=== PATIENT | female | born 1940 | race Caucasian/White ===

== ENCOUNTER 2018-11-28 07:41 | Outpatient (CLI) | payer MEDICARE, OTHER ==
[~2018-11-28 07:41] MED LIST: CYCLOPHOSPHAMIDE IV PRN; DEXAMETHASONE SOD PHOSPHATE 10 MG in NORMAL SALINE 50 ML IV PRN; MESNA IV PRN; NORMAL SALINE 1000 ML 1,000 ML IV PRN; NORMAL SALINE 500 ML IV PRN; NORMAL SALINE IV PRN; ONDANSETRON HCL/PF 8 MG in NORMAL SALINE 50 ML IV PRN; ONDANSETRON HCL/PF 8 MG, DEXAMETHASONE SOD PHOSPHATE 10 MG in NORMAL SALINE 50 ML IV PRN
[2018-11-28 08:08] VITALS: BP 177/67
== END 2018-11-28 16:55 | disposition home or self-care (01) ==
LOC: II 07:41 → 5TH 07:48 → II 16:55
PROVIDERS: ATTEND Internal Medicine Nephrology
DX: Z51.11 Encounter for antineoplastic chemotherapy (principal)
CPT/HCPCS: 96413; 96415; 96367; 96360; 96361; J9070; J9209; J2405; J1100

== ENCOUNTER 2018-12-24 15:54 | Outpatient (CLI) | payer MEDICARE ==
[~2018-12-24 15:54] MED LIST changes: +ACETAMINOPHEN 325 MG TABLET PO PRN; -CYCLOPHOSPHAMIDE IV PRN; -DEXAMETHASONE SOD PHOSPHATE 10 MG in NORMAL SALINE 50 ML IV PRN; +FUROSEMIDE INJ/PF 20 MG/2 ML SDV IV PRN; -MESNA IV PRN; -NORMAL SALINE 1000 ML 1,000 ML IV PRN; -NORMAL SALINE 500 ML IV PRN; -NORMAL SALINE IV PRN; -ONDANSETRON HCL/PF 8 MG in NORMAL SALINE 50 ML IV PRN; -ONDANSETRON HCL/PF 8 MG, DEXAMETHASONE SOD PHOSPHATE 10 MG in NORMAL SALINE 50 ML IV PRN
[2018-12-24] MEDS ORDERED: DIPHENHYDRAMINE HCL 50 MG/ML VIAL IV PRN (16:30)
[2018-12-24 17:04] LABS: HEMATOCRIT 20.8 % (36.0-47.0); MEAN CORPUSCULAR HEMOGLOBIN 31.2 pg (27.0-33.4); MEAN CORPUSCULAR VOLUME 89 fl (80-97); RED BLOOD COUNT 2.34 10^6/uL (3.72-5.28); RED CELL DISTRIBUTION WIDTH 15.1 % (11.5-14.0); WHITE BLOOD COUNT 6.2 10^3/uL (4.0-10.5)
[2018-12-24 17:28] LABS: HEMOGLOBIN 7.3 g/dL (12.0-15.5)
[2018-12-24 17:30] LABS: PLATELET COUNT 71 10^3/uL (150-450)
[2018-12-25 03:47] VITALS: BP 171/80
== END 2018-12-25 04:07 | disposition home or self-care (01) ==
LOC: II 15:54 → 2N 16:05 → II 12-25 04:07
PROVIDERS: ATTEND Internal Medicine Nephrology
DX: D64.9 Anemia, unspecified (principal)
CPT/HCPCS: 86900; 86901; 36415; 36430; 86850; 86920; P9016; A9270; J1200; J1940

== ENCOUNTER 2018-12-29 11:29 | Observation (INO) | payer MEDICARE ==
--- NOTE | 2018-12-29 11:55 | ER Document Report ---
ED General - General Stated Complaint: SYNCOPE Time Seen by Provider: 12/29/18 11:35 Primary Care Provider: Evelyn MIRZA MD [Primary Care Provider] - Follow up as needed TRAVEL OUTSIDE OF THE [place] IN LAST 30 DAYS: No - HPI Notes: Patient is a 78-year-old female with a history of hypertension, chronic kidney disease, anemia requiring transfusions (most recently x1 week) who presents complaining of near syncopal episode that resulted in head injury this morning. Patient states that she was standing at her stove try to make herself some food after she had taken her medicines and started to become lightheaded. Patient states that she went to the bathroom, and sat down, but did "have a mess." Patient states that she then started blacking out and hit her head off of the tub/shower next to her. Patient states that she did not have a complete syncopal episode and does remember everything that happened in the order that it occurred. Patient states that she needed help from her friend thereafter to get cleaned up. Patient states that she is able to shower and has been able to ambulate since then without difficulty, but does continue to have some generalized weakness. No other recent illness. Friend states that she has had 2 other episodes similar to this over the past several weeks. She has no other concerns or complaints. No black or tarry stool. No hematochezia. Denies any headache, fever, neck pain, changes in vision/speech/mentation/hearing, URI, sore throat, chest pain, palpitations, syncope, cough, shortness of breath, wheeze, dyspnea, abdominal pain, nausea/vomiting/diarrhea, urinary retention, dysuria, hematuria, loss of control of bowel or bladder, numbness/tingling, saddle anesthesia, muscle paralysis, or rash. - Related Data Allergies/Adverse Reactions: codeine Allergy (Unknown, Unverified 11/27/18 09:01) Sulfa (Sulfonamide Antibiotics) Allergy (Unknown, Unverified 11/27/18 09:01) Past Medical History - Social History Smoking Status: Never Smoker Family History: Reviewed & Not Pertinent Review of Systems - Review of Systems -: Yes All other systems reviewed and negative Physical Exam - Vital signs Vitals: Temp Pulse BP Pulse Ox 97.5 F 65 183/69 H 100 12/29/18 11:42 12/29/18 11:42 12/29/18 11:42 12/29/18 11:42 - Notes Notes: PHYSICAL EXAMINATION: accompanied by female nurse GENERAL: Well-appearing, well-nourished and in no acute distress. A&Ox4. Answers questions appropriately. HEAD: Atraumatic, normocephalic. Non-tender. No mendoza sign Face: + swelling and ecchymosis to the inferior rt orbital/zygomatic area. + mild tenderness. EYES: Pupils equal round and reactive to light, extraocular movements intact, sclera anicteric, conjunctiva are normal. No raccoon eyes/entrapment ENT: EAC clear b/l. TM's intact b/l without erythema, fluid, or perforation. Nares patent and without discharge. oropharynx clear without exudates. No tonsilar hypertrophy or erythema. Moist mucous membranes. No sinus tenderness. No hemotympanum/CSF discharge. NECK: Normal range of motion, supple without lymphadenopathy. No rigidity. No midline tenderness. Chest: No flail chest. equal rise/fall. Non-tender LUNGS: Breath sounds clear to auscultation bilaterally and equal. No wheezes rales or rhonchi. HEART: Regular rate and rhythm without murmurs, rubs, gallops. ABDOMEN: Soft, nontender, nondistended abdomen. No guarding, no rebound. No masses appreciated. Normal bowel sounds present. No CVA tenderness bilaterally. No ecchymosis Musculoskeletal: Ext's b/l: FROM to passive/active. Strength 5+/5. No deficits noted. No bony tenderness of extremities. Back: FROM to passive/active. Strength 5+/5. No vertebral point tenderness, stepoffs, or deformities. No other bony tenderness or ecchymosis. Extremities: No cyanosis, clubbing, or edema b/l. Peripheral pulses 2+. Cap illary refill less than 2 seconds. NEUROLOGICAL: NIH 0. GCS 15. Cranial nerves grossly intact. Normal speech. Normal sensory, motor exams. Reflexes 2+ b/l. YANE's negative. Pronator drift negative. Heel/mcclain, finger/nose wnl. PSYCH: Normal mood, normal affect. SKIN: see above. Warm, Dry, normal turgor, no rashes or lesions noted. Course - Re-evaluation Re-evalutation: 12/29/18 14:57 Patient is an afebrile, well-hydrated, 78-year-old female who presents emergency department with a syncopal episode, unspecified. Vitals are acceptable without significant tachycardia, tachypnea, or hypoxia. PE is otherwise unremarkable for any focal neurological deficits. Patient is nontoxic-appearing and is able to tolerate p.o. without difficulty. Patient states that she is currently feeling better than she was. Labs were acceptable. Imaging unremarkable. EKG unremarkable. No further labs or imaging warranted at this time. Patient agreeable to admission. I did speak with hospitalist, JOSEPH Peters, who accepted pt to tele. - Vital Signs Vital signs: Temp Pulse Resp BP Pulse Ox 97.5 F 65 14 165/67 H 98 12/29/18 11:42 12/29/18 11:42 12/29/18 14:01 12/29/18 14:01 12/29/18 14:01 - Laboratory Result Diagrams: 12/29/18 12:08 12/29/18 12:08 Laboratory results interpreted by me: 12/29/18 12/29/18 12/29/18 12:08 12:08 14:06 RBC 3.41 L Hgb 10.4 L Hct 29.3 L RDW 15.2 H Plt Count 55 L Seg Neuts % (Manual) 93 H Lymphocytes % (Manual) 1 L Abs Lymphs (Manual) 0.1 L Sodium 132.7 L Chloride 95 L BUN 72 H Creatinine 2.63 H Est GFR ( Amer) 21 L Est GFR (Non-Af Amer) 18 L Glucose 146 H Total Protein 5.5 L Albumin 3.3 L Urine Protein 100 H Urine Blood MODERATE H Ur Leukocyte Esterase MODERATE H Urine Ascorbic Acid 40 H Discharge - Discharge Clinical Impression: Syncopal episodes Qualifiers: Syncope type: unspecified Qualified Code(s): R55 - Syncope and collapse Condition: Stable Disposition: ADMITTED INPATIENT Admitting Provider: JOSEPH Peters Unit Admitted: Telemetry Referrals: Evelyn MIRZA MD [Primary Care Provider] - Follow up as needed
[2018-12-29 12:29] LABS: HEMATOCRIT 29.3 % (36.0-47.0); HEMOGLOBIN 10.4 g/dL (12.0-15.5); MEAN CORPUSCULAR HEMOGLOBIN 30.6 pg (27.0-33.4); MEAN CORPUSCULAR HGB CONC 35.6 g/dL (32.0-36.0); MEAN CORPUSCULAR VOLUME 86 fl (80-97); RED BLOOD COUNT 3.41 10^6/uL (3.72-5.28); RED CELL DISTRIBUTION WIDTH 15.2 % (11.5-14.0); WHITE BLOOD COUNT 6.8 10^3/uL (4.0-10.5)
[2018-12-29 12:46] LABS: ALANINE AMINOTRANSFERASE 33 U/L (9-52); ALBUMIN 3.3 g/dL (3.5-5.0); ALKALINE PHOSPHATASE 44 U/L (38-126); ANION GAP 11 (5-19); ASPARTATE AMINO TRANSFERASE 15 U/L (14-36); BILIRUBIN,DIRECT 0.4 mg/dL (0.0-0.4); BILIRUBIN,TOTAL 0.7 mg/dL (0.2-1.3); BLOOD UREA NITROGEN 72 mg/dL (7-20); CALCIUM 8.8 mg/dL (8.4-10.2); CARBON DIOXIDE 27 mmol/L (22-30); CHLORIDE 95 mmol/L (98-107); GLUCOSE 146 mg/dL (75-110); SODIUM 132.7 mmol/L (137-145); TOTAL PROTEIN 5.5 g/dL (6.3-8.2)
[2018-12-29 12:55] LABS: PLATELET COUNT 55 10^3/uL (150-450)
[2018-12-29 12:57] LABS: ABSOLUTE LYMPHOCYTES# (MANUAL) 0.1 10^3/uL (0.5-4.7); ABSOLUTE MONOCYTES # (MANUAL) 0.3 10^3/uL (0.1-1.4); ABSOLUTE NEUTROPHILS# (MANUAL) 6.3 10^3/uL (1.7-8.2); ANISOCYTOSIS SLIGHT; BASOPHILS % (MANUAL) 0 % (0-2); EOSINOPHILS % (MANUAL) 1 % (0-6); LYMPHOCYTES % (MANUAL) 1 % (13-45); MONOCYTES % (MANUAL) 5 % (3-13); PLATELET COMMENT DECREASED; SEGMENTED NEUTROPHILS % (MAN) 93 % (42-78); TEAR DROP CELLS SLIGHT; TOTAL CELLS COUNTED 100; TOXIC GRANULATION SLIGHT
--- NOTE | 2018-12-29 13:20 | RADIOLOGY REPORT (SQ) ---
EXAM DESCRIPTION: CHEST SINGLE VIEW COMPLETED DATE/TIME: 12/29/2018 12:52 pm REASON FOR STUDY: syncope COMPARISON: None. EXAM PARAMETERS: NUMBER OF VIEWS: One view. TECHNIQUE: Single frontal radiographic view of the chest acquired. RADIATION DOSE: NA LIMITATIONS: Portable technique. FINDINGS: LUNGS AND PLEURA: No opacities, masses or pneumothorax. No pleural effusion. MEDIASTINUM AND HILAR STRUCTURES: No masses. Contour normal. HEART AND VASCULAR STRUCTURES: Heart normal in size. Normal vasculature. BONES: No acute findings. HARDWARE: None in the chest. OTHER: No other significant finding. IMPRESSION: NO ACUTE RADIOGRAPHIC FINDING IN THE CHEST. TECHNICAL DOCUMENTATION: JOB ID: [id number] [facility]- All Rights Reserved Reading location - IP/workstation name: [email or web address]
[2018-12-29] MEDS ORDERED: NORMAL SALINE 500 ML IV ONE (14:14)
--- NOTE | 2018-12-29 14:18 | RADIOLOGY REPORT (SQ) ---
EXAM DESCRIPTION: CT FACIAL AREA WITHOUT COMPLETED DATE/TIME: 12/29/2018 1:59 pm REASON FOR STUDY: fall injury s/p near syncope (rt inf. orbit ecch) COMPARISON: None. TECHNIQUE: Noncontrasted images through the facial bones and orbits windowed for bone and soft tissu e. Additional coronal and sagittal reconstructed images reviewed. All images stored on PACS. All CT scanners at this facility use dose modulation, iterative reconstruction, and/or weight based d osing when appropriate to reduce radiation dose to as low as reasonably achievable (ALARA). [facility]: Dose Right [facility]: CareDose [facility]: Dose Right [facility]: Teradose 4D [facility]: [employer] RADIATION DOSE: CT Rad equipment meets quality standard of care and radiation dose reduction techniq ues were employed. CTDIvol: 30.4 mGy. DLP: 593 mGy-cm. mGy. LIMITATIONS: None. FINDINGS: FACIAL BONES: No fracture or bone lesion. ORBITS: Intact. No fracture. Symmetric intact globes and retroorbital soft tissues. PARANASAL SINUSES: Clear. SOFT TISSUES: Mild inflammation of the right cheek. INFERIOR BRAIN: See separate report. OTHER: No other significant finding. IMPRESSION: No fracture. TECHNICAL DOCUMENTATION: JOB ID: [id number] Quality ID # [id number]: Final reports with documentation of one or more dose reduction techniques (e.g., Au tomated exposure control, adjustment of the mA and/or kV according to patient size, use of iterative reconstruction technique) 2010 [employer]- All Rights Reserved Reading location - IP/workstation name: [email or web address]
--- NOTE | 2018-12-29 14:22 | RADIOLOGY REPORT (SQ) ---
EXAM DESCRIPTION: CT HEAD WITHOUT COMPLETED DATE/TIME: 12/29/2018 1:59 pm REASON FOR STUDY: fall injury s/p near syncope COMPARISON: None. TECHNIQUE: Axial images acquired through the brain without intravenous contrast. Images reviewed wi th bone, brain and subdural windows. Additional sagittal and coronal reconstructions were generated. Images stored on PACS. All CT scanners at this facility use dose modulation, iterative reconstruction, and/or weight based d osing when appropriate to reduce radiation dose to as low as reasonably achievable (ALARA). [facility]: Dose Right [facility]: CareDose [facility]: Dose Right [facility]: Teradose 4D [facility]: [employer] RADIATION DOSE: mGy. LIMITATIONS: None. FINDINGS: VENTRICLES: Prominent. CEREBRUM: No masses. No hemorrhage. No midline shift. Areas of low density in the white matter mos t likely due to chronic micro-vascular ischemic change. No evidence for acute infarction. CEREBELLUM: No masses. No hemorrhage. No alteration of density. No evidence for acute infarction. EXTRAAXIAL SPACES: Mild age-related involutional change. No fluid collections. No masses. ORBITS AND GLOBE: No intra- or extraconal masses. Normal contour of globe without masses. CALVARIUM: No fracture. PARANASAL SINUSES: No fluid or mucosal thickening. SOFT TISSUES: No mass or hematoma. OTHER: No other significant finding. IMPRESSION: MILD CHRONIC CHANGES OF ATROPHY AND MICROVASCULAR ISCHEMIA. NO ACUTE PROCESS. EVIDENCE OF ACUTE STROKE: NO. TECHNICAL DOCUMENTATION: JOB ID: [id number] Quality ID # [id number]: Final reports with documentation of one or more dose reduction techniques (e.g., Au tomated exposure control, adjustment of the mA and/or kV according to patient size, use of iterative reconstruction technique) 2010 [employer]- All Rights Reserved Reading location - IP/workstation name: [email or web address]
[2018-12-29 14:33] LABS: APPEARANCE,URINE SLIGHTLY-CLOUDY; BILIRUBIN,URINE NEGATIVE (NEGATIVE); COLOR,URINE YELLOW; GLUCOSE, URINE NEGATIVE (NEGATIVE); KETONES,URINE NEGATIVE (NEGATIVE); LEUKOCYTE ESTERASE,URINE MODERATE (NEGATIVE); NITRITE,URINE NEGATIVE (NEGATIVE); PROTEIN,URINE 100 mg/dL (NEGATIVE); UROBILINOGEN,URINE NEGATIVE mg/dL (<2.0)
[2018-12-29] MEDS ORDERED: CEFTRIAXONE 1 GM/D5W RTU 1 GM/50 ML RTUPB IV ONE (14:51)
--- NOTE | 2018-12-29 16:10 | EKG REPORT ---
SEVERITY:- NORMAL ECG - SINUS RHYTHM : Confirmed by: Britney Ferrell MD 29-Dec-2018 16:09:33
[2018-12-29] MEDS ORDERED: NORMAL SALINE 1000 ML 1,000 ML IV PRN (16:23)
[2018-12-29] MEDS ORDERED: ALBUTEROL SULFATE 0.083% NEB 2.5 MG/3 ML AMPUL NEB PRN (16:23)
[2018-12-29] MEDS ORDERED: MAGNESIUM HYDROXIDE SUSP 30 ML UDCUP PO PRN (16:23)
[2018-12-29] MEDS ORDERED: MAG HYDROX/AL HYDROX/SIMETH SUSP 30 ML UDCUP PO PRN (16:23)
[2018-12-29] MEDS ORDERED: ONDANSETRON HCL INJ/PF 4 MG/2 ML SDV IV PRN (16:23)
--- NOTE | 2018-12-29 16:54 | PDOC H&P ---
History of Present Illness Admission Date/PCP: 12/29/18 15:29 Evelyn FERNANDEZ MD Patient complains of: syncope History of Present Illness: LAYA BRIGHT is a 78 year old female with a past medical history of hypertension, GERD, and recent diagnosis of nephrotic syndrome who presented to the emergency department after a syncopal event. Patient was discharged from [facility] approximate 3 weeks ago; she was admitted there for gross hematuria and found to have nephrotic syndrome. She is currently followed by Dr. Fernandez; on prednisone and cytoan, recently placed on cardura for hypertension. The patient reports that she had a near syncopal event in the kitchen, moved to the bathroom she had a large diarrheal bowel movement immediately followed by a syncopal event resulting in her falling against her shower and obtaining a facial injury (ecchymosis to right eye/cheek). Patient denies associated diaphoresis, chest pain, palpitations, dyspnea. She does note that she has had loose bowel movements for approximately 3 days; 3-4 episodes daily. Evaluation in the emergency department is revealed orthostatic vital signs, anem ia (hemoglobin 10.4), creatinine of 2.63 and BUN of 72 (actually improved from 1 week ago when creatinine was 3.18), indeterminately elevated troponin stable at 0.082, EKG demonstrating normal sinus rhythm without ST segment changes, benign chest x-ray, head CT and facial CT. Patient is referred to the hospitalist service for admission and management of the above-stated complaints. Past Medical History Cardiac Medical History: Reports: Atrial Fibrillation, Congestive Heart Failure, Hypertension Denies: Coronary Artery Disease, Hyperlipidema Pulmonary Medical History: Reports: None EENT Medical History: Reports: None Neurological Medical History: Reports: None Endocrine Medical History: Reports: Obesity Renal/ Medical History: Reports: Other - Nephrotic syndrome Malignancy Medical History: Reports: None GI Medical History: Reports: Gastroesophageal Reflux Disease Musculoskeltal Medical History: Reports: None Skin Medical History: Reports: None Psychiatric Medical History: Reports: None Traumatic Medical History: Reports: None Hematology: Reports: Anemia Infectious Medical History: Reports: None Past Surgical History Past Surgical History: Reports: Cholecystectomy, Hysterectomy, Orthopedic Surgery - Carpal Tunnel Social History Information Source: Patient Lives with: Alone Smoking Status: Never Smoker Frequency of Alcohol Use: None Hx Recreational Drug Use: No Drugs: None Hx Prescription Drug Abuse: No - Advance Directive Resuscitation Status: Full Code Family History Family History: Reviewed & Not Pertinent, CVA, DM, Malignancy Parental Family History Reviewed: Yes Children Family History Reviewed: Yes Sibling(s) Family History Reviewed.: Yes Medication/Allergy Home Medications: Ascorbic Acid [Vitamin C] 1,000 mg PO DAILY 12/29/18 Calcitriol [Rocaltrol] 0.5 mcg PO QHS 12/29/18 Cholecalciferol (Vitamin D3) [Vitamin D3 1000 Unit Tablet] 1,000 unit PO DAILY 12/29/18 Doxazosin Mesylate [Cardura 2 mg Tablet] 2 mg PO QHS 12/29/18 Furosemide [Lasix 20 mg Tablet] 20 mg PO BID 12/29/18 Hydralazine HCl 100 mg PO Q8 12/29/18 Magnesium Oxide [Magnesium] 500 mg PO DAILY 12/29/18 Metoprolol Tartrate [Lopressor 50 mg Tablet] 50 mg PO Q12 12/29/18 Nystatin [Mycostatin 243733 Unit/1 ml Susp 60 ml Btl] 500,000 unit PO QID 12/29/18 Pantoprazole Sodium [Protonix [address] Tablet] 40 mg PO QAM 12/29/18 Pravastatin Sodium [Pravachol] 40 mg PO QPM 12/29/18 Prednisone [Deltasone 20 mg Tablet] 20 mg PO Q12 12/29/18 Sodium Bicarbonate [Sodium Bicarbonate 650 mg Tablet] 650 mg PO QID 12/29/18 Ubidecarenone/Vit E Acet [Co Q-10 100 mg Softgel] 1 cap PO QHS 12/29/18 l Gasseri/B Bifidum/B Longum [[facility] Capsule] 1 cap PO DAILY 12/29/18 Allergies/Adverse Reactions: codeine Allergy (Unknown, Unverified 11/27/18 09:01) Sulfa (Sulfonamide Antibiotics) Allergy (Unknown, Unverified 11/27/18 09:01) Review of Systems Constitutional: ABSENT: chills, fever(s), headache(s), weight gain, weight loss Eyes: ABSENT: visual disturbances Ears: ABSENT: hearing changes Cardiovascular: ABSENT: chest pain, dyspnea on exertion, edema, orthropnea, palpitations Respiratory: ABSENT: cough, hemoptysis Gastrointestinal: PRESENT: as per HPI, diarrhea. ABSENT: abdominal pain, constipation, hematemesis, hematochezia, nausea, vomiting Genitourinary: ABSENT: dysuria, hematuria Musculoskeletal: ABSENT: joint swelling Integumentary: ABSENT: rash, wounds Neurological: PRESENT: as per HPI, syncope, weakness. ABSENT: abnormal gait, abnormal speech, confusion, dizziness, focal weakness Psychiatric: ABSENT: anxiety, depression, homidical ideation, suicidal ideation Endocrine: ABSENT: cold intolerance, heat intolerance, polydipsia, polyuria Hematologic/Lymphatic: ABSENT: easy bleeding, easy bruising Physical Exam Vital Signs: Temp Pulse Resp BP Pulse Ox 97.5 F 65 24 H 134/71 H 95 12/29/18 11:42 12/29/18 11:42 12/29/18 15:42 12/29/18 15:42 12/29/18 15:42 Intake & Output 12/28/18 12/29/18 12/30/18 06:59 06:59 06:59 Intake Total 500 Balance 500 Weight 82.554 kg General appearance: PRESENT: no acute distress, cooperative - Pleasant, obese, well-developed, well-nourished Head exam: PRESENT: normocephalic. ABSENT: atraumatic - Ecchymosis to right periorbit and cheek, dried blood to right nare Eye exam: PRESENT: conjunctiva pink, EOMI, PERRLA. ABSENT: scleral icterus Ear exam: PRESENT: normal external ear exam Mouth exam: PRESENT: moist, tongue midline, other - Thrush Neck exam: ABSENT: carotid bruit, JVD, lymphadenopathy, thyromegaly Respiratory exam: PRESENT: clear to auscultation destiney, symmetrical, unlabored. ABSENT: rales, rhonchi, wheezes Cardiovascular exam: PRESENT: RRR, +S1, +S2. ABSENT: diastolic murmur, rubs, systolic murmur Pulses: PRESENT: normal dorsalis pedis pul Vascular exam: PRESENT: normal capillary refill GI/Abdominal exam: PRESENT: normal bowel sounds, soft. ABSENT: distended, guarding, mass, organolmegaly, rebound, tenderness Rectal exam: PRESENT: deferred Extremities exam: PRESENT: full ROM. ABSENT: calf tenderness, clubbing, pedal edema Neurological exam: PRESENT: alert, awake, oriented to person, oriented to place, oriented to time, oriented to situation, CN II-XII grossly intact. ABSENT: motor sensory deficit Psychiatric exam: PRESENT: appropriate affect, normal mood. ABSENT: homicidal ideation, suicidal ideation Skin exam: PRESENT: dry, intact, warm. ABSENT: cyanosis, rash Results Laboratory Results: 12/29/18 12:08 12/29/18 12:08 12/29/18 12/29/18 12/29/18 12:08 12:08 12:22 WBC 6.8 RBC 3.41 L Hgb 10.4 L Hct 29.3 L MCV 86 MCH 30.6 MCHC 35.6 RDW 15.2 H Plt Count 55 L Seg Neutrophils % Not Reportable Lymphocytes % Not Reportable Monocytes % Not Reportable Eosinophils % Not Reportable Basophils % Not Reportable Absolute Neutrophils Not Reportable Absolute Lymphocytes Not Reportable Absolute Monocytes Not Reportable Absolute Eosinophils Not Reportable Absolute Basophils Not Reportable Sodium 132.7 L Potassium 4.0 Chloride 95 L Carbon Dioxide 27 Anion Gap 11 BUN 72 H Creatinine 2.63 H Est GFR ( Amer) 21 L Est GFR (Non-Af Amer) 18 L Glucose 146 H Calcium 8.8 Total Bilirubin 0.7 AST 15 ALT 33 Alkaline Phosphatase 44 Total Protein 5.5 L Albumin 3.3 L Urine Color Urine Appearance Urine pH Ur Specific [place] Urine Protein Urine Glucose (UA) Urine Ketones Urine Blood Urine Nitrite Ur Leukocyte Esterase Urine WBC (Auto) Urine RBC (Auto) Blood Type O POSITIVE Antibody Screen NEGATIVE 12/29/18 14:06 WBC RBC Hgb Hct MCV MCH MCHC RDW Plt Count Seg Neutrophils % Lymphocytes % Monocytes % Eosinophils % Basophils % Absolute Neutrophils Absolute Lymphocytes Absolute Monocytes Absolute Eosinophils Absolute Basophils Sodium Potassium Chloride Carbon Dioxide Anion Gap BUN Creatinine Est GFR ( Amer) Est GFR (Non-Af Amer) Glucose Calcium Total Bilirubin AST ALT Alkaline Phosphatase Total Protein Albumin Urine Color YELLOW Urine Appearance SLIGHTLY-CLOUDY Urine pH 6.0 Ur Specific [place] 1.010 Urine Protein 100 H Urine Glucose (UA) NEGATIVE Urine Ketones NEGATIVE Urine Blood MODERATE H Urine Nitrite NEGATIVE Ur Leukocyte Esterase MODERATE H Urine WBC (Auto) 29 Urine RBC (Auto) 56 Blood Type Antibody Screen 12/29/18 12/29/18 12:08 15:10 Troponin I 0.082 0.084 Impressions: Chest X-Ray 12/29/18 11:37 IMPRESSION: NO ACUTE RADIOGRAPHIC FINDING IN THE CHEST. Facial Bones CT 05/06/19 11:50 IMPRESSION: No fracture. Assessment and Plan - Diagnosis (1) Syncopal episodes Qualifiers: Syncope type: unspecified Qualified Code(s): R55 - Syncope and collapse Is this a current diagnosis for this admission?: Yes Plan: Patient presented with a syncopal episode that was immediately preceded by a diarrheal bowel movement. She did have a prodrome of lightheadedness/tunnel vision few moments prior to. Of note, patient has had multiple recent medication changes including prednisone, cytoan, and cardura for treatment of acute nephrotic syndrome and hypertension. Chest x-ray is benign. Facial CT is negative for acute fracture. Head CT demonstrates mild chronic changes of atrophy and microvascular ischemia without acute processes. EKG demonstrates normal sinus rhythm with PVC; no ST segment changes. Laboratory evaluation demonstrates anemia (improved from last week), elevated BUN and creatinine (also improved), indeterminately elevated but stable troponin, and an elevated d-dimer (which in retrospect is not of assistance as the patient recently underwent a renal biopsy). Vital signs to confirm orthostatic blood pressures. Patient is admitted to the medical floor on continuous cardiac telemetry. Continue home dose metoprolol; holding Cardura, furosemide, and hydralazine. Will provide gentle IV fluids. Continue to monitor orthostats every shift. Fall precautions. We will check TSH, A1c, a.m. cortisol in the morning. (2) Hypertension Qualifiers: Hypertension type: unspecified Qualified Code(s): I10 - Essential (primary) hypertension Is this a current diagnosis for this admission?: Yes Plan: Prerenal diet. Continue home dose metoprolol. Holding other antihypertensive medications secondary to orthostatic blood pressures and syncopal event. Nephrology is consulted; appreciate Dr. Fernandez's assistance. (3) Nephrotic syndrome Is this a current diagnosis for this admission?: Yes Plan: Continue home dose of prednisone. Dr. Fernandez is consulted; management per his expertise. (4) Thrush Is this a current diagnosis for this admission?: Yes Plan: Nystatin swish and swallow 4 times daily. (5) Obesity Qualifiers: Body mass index: BMI 32.0-32.9 Is this a current diagnosis for this admission?: Yes Plan: Dietary discretion is advised. (6) Diarrhea Qualifiers: Diarrhea type: unspecified type Qualified Code(s): R19.7 - Diarrhea, unspecified Is this a current diagnosis for this admission?: Yes Plan: Patient reports 3 to 4 days of diarrhea bowel movements; 4 episodes daily. She denies fever, chills, abdominal pain, nausea and vomiting. Hemoccult, C. difficile PCR, and stool culture pending. - Time Time Spent with patient: 35 or more minutes Medications reviewed and adjusted accordingly: Yes Anticipated discharge: Home Within: within 24 hours
[2018-12-29] MEDS ORDERED: (PENDING PHARMACY ID) (Pravastatin Sodium [Pravachol] 40 MG) PO SCH (18:00)
[2018-12-29] MEDS ORDERED: NYSTATIN 500000 UNIT PO SCH (18:00)
[2018-12-29] MEDS: SODIUM BICARBONATE 650 MG TABLET PO SCH ×2 (18:41→23:01)
[2018-12-29] MEDS ORDERED: (PENDING PHARMACY ID) (Ubidecarenone/Vit E Acet [Co Q-10 100 Mg Softgel] 1 CAP) PO SCH ×2 (19:00→22:00)
[2018-12-29] MEDS ORDERED: (PENDING PHARMACY ID) (Calcitriol [Rocaltrol 0.5 Mcg Capsule] 0.5 MCG) PO SCH (22:00)
[2018-12-29] MEDS: METOPROLOL TARTRATE 50 MG TABLET PO SCH (23:01)
[2018-12-29] MEDS: PREDNISONE 20 MG TABLET PO SCH (23:02)
[2018-12-29] MEDS: CALCITRIOL 0.25 MCG CAPSULE PO SCH (23:02)
[2018-12-29] MEDS: HEPARIN SOD (PORCINE) 5,000 UNIT/ML 1 ML SYRINGE SUBCUT SCH (23:03)
[2018-12-29] MEDS: ATORVASTATIN CALCIUM 10 MG TABLET PO SCH (23:03)
[2018-12-29] MEDS: NYSTATIN/DEXAMETH/DIPHEN SUSP 120 ML PO SCH (23:04)
[2018-12-29] MEDS: ACETAMINOPHEN 325 MG TABLET PO PRN (23:27)
[2018-12-30] MEDS: HEPARIN SOD (PORCINE) 5,000 UNIT/ML 1 ML SYRINGE SUBCUT SCH ×2 (05:54→13:44)
[2018-12-30 07:04] LABS: HEMATOCRIT 25.2 % (36.0-47.0); HEMOGLOBIN 8.9 g/dL (12.0-15.5); MEAN CORPUSCULAR HEMOGLOBIN 30.6 pg (27.0-33.4); MEAN CORPUSCULAR HGB CONC 35.4 g/dL (32.0-36.0); MEAN CORPUSCULAR VOLUME 86 fl (80-97); RED BLOOD COUNT 2.92 10^6/uL (3.72-5.28); WHITE BLOOD COUNT 4.9 10^3/uL (4.0-10.5)
[2018-12-30 07:18] LABS: ANION GAP 7 (5-19); BLOOD UREA NITROGEN 65 mg/dL (7-20); CALCIUM 8.1 mg/dL (8.4-10.2); CARBON DIOXIDE 28 mmol/L (22-30); CHLORIDE 100 mmol/L (98-107); GLUCOSE 135 mg/dL (75-110); SODIUM 135.1 mmol/L (137-145)
[2018-12-30 07:47] LABS: PLATELET COUNT 52 10^3/uL (150-450)
[2018-12-30 07:58] LABS: ABSOLUTE NEUTROPHILS# (MANUAL) 4.9 10^3/uL (1.7-8.2); BASOPHILS % (MANUAL) 0 % (0-2); EOSINOPHILS % (MANUAL) 0 % (0-6); LYMPHOCYTES % (MANUAL) 1 % (13-45); METAMYELOCYTES % (MANUAL) 2 % (0); MONOCYTES % (MANUAL) 0 % (3-13); SEGMENTED NEUTROPHILS % (MAN) 97 % (42-78); TOTAL CELLS COUNTED 100
[2018-12-30 08:14] LABS: ANISOCYTOSIS SLIGHT
[2018-12-30 08:15] LABS: OVALOCYTES 1+
[2018-12-30 08:23] LABS: PLATELET COMMENT DECREASED; TEAR DROP CELLS SLIGHT
[2018-12-30] MEDS: PREDNISONE 20 MG TABLET PO SCH ×2 (09:50→21:46)
[2018-12-30] MEDS: SODIUM BICARBONATE 650 MG TABLET PO SCH ×3 (09:50→18:23)
[2018-12-30] MEDS: CHOLECALCIFEROL (D3) 1,000 UNIT TABLET PO SCH (09:50)
[2018-12-30] MEDS: NYSTATIN/DEXAMETH/DIPHEN SUSP 120 ML PO SCH ×4 (09:50→21:47)
[2018-12-30] MEDS: METOPROLOL TARTRATE 50 MG TABLET PO SCH ×2 (09:50→21:46)
[2018-12-30] MEDS: MAGNESIUM OXIDE 400 MG TABLET PO SCH (09:50)
[2018-12-30] MEDS: ASCORBIC ACID 500 MG TABLET PO SCH (09:50)
[2018-12-30] MEDS: PANTOPRAZOLE SODIUM 40 MG TABLET.DR PO SCH (09:50)
[2018-12-30] MEDS ORDERED: (PENDING PHARMACY ID) (Magnesium Oxide [Magnesium] 500 MG) PO SCH (10:00)
--- NOTE | 2018-12-30 17:13 | PDOC PROGRESS REPORT ---
Subjective Progress Note for:: 12/30/18 Subjective:: LAYA BRIGHT is a 78 year old female with a past medical history of hypertension, GERD, and recent diagnosis of nephrotic syndrome who was admitted 12/29/2018 for syncopal event. Patient was seen on afternoon rounds. She was found sitting up to the edge of the bed comfortably on room air. She reports that she is feeling well today and has had no further episodes of near syncope/syncope, dizziness, lightheadedness, generalized weakness. However, the patient has not been ambulatory further up to the restroom. She does ask to have carotid Doppler done while she was here; states that she had one done several years ago but cannot recall the results. She is pleased by her blood pressures today; certain that the antihypertensive medications recently started following her admission for nephrotic syndrome contributed to her fall. Otherwise, she has no new questions or concerns today. She denies fever, chills, chest pain, palpitations, dyspnea, orthopnea, abdominal pain, nausea vomiting and diarrhea. No concerns per nursing. Reason For Visit: SYNCOPE Physical Exam Vital Signs: Temp Pulse Resp BP Pulse Ox 98 F 66 16 157/74 H 98 12/30/18 16:00 12/30/18 16:00 12/30/18 16:00 12/30/18 16:00 12/30/18 16:00 Intake & Output 12/29/18 12/30/18 12/31/18 06:59 06:59 06:59 Intake Total 550 Balance 550 Weight 82.554 kg General appearance: PRESENT: no acute distress, cooperative - Pleasant, obese, well-developed, well-nourished Head exam: PRESENT: normocephalic. ABSENT: atraumatic - Ecchymosis to right periorbit and cheek Eye exam: PRESENT: conjunctiva pink, EOMI, PERRLA. ABSENT: scleral icterus Ear exam: PRESENT: normal external ear exam Mouth exam: PRESENT: moist, tongue midline Neck exam: ABSENT: carotid bruit, JVD, lymphadenopathy, thyromegaly Respiratory exam: PRESENT: clear to auscultation destiney, symmetrical, unlabored. ABSENT: rales, rhonchi, wheezes Cardiovascular exam: PRESENT: RRR, +S1, +S2. ABSENT: diastolic murmur, rubs, systolic murmur Pulses: PRESENT: normal dorsalis pedis pul Vascular exam: PRESENT: normal capillary refill GI/Abdominal exam: PRESENT: normal bowel sounds, soft. ABSENT: distended, guarding, mass, organolmegaly, rebound, tenderness Rectal exam: PRESENT: deferred Extremities exam: PRESENT: full ROM, pedal edema - +2 pitting pedal edema; does not extend past ankles. ABSENT: calf tenderness, clubbing Neurological exam: PRESENT: alert, awake, oriented to person, oriented to place, oriented to time, oriented to situation, CN II-XII grossly intact. ABSENT: motor sensory deficit Psychiatric exam: PRESENT: appropriate affect, normal mood. ABSENT: homicidal ideation, suicidal ideation Skin exam: PRESENT: dry, intact, warm. ABSENT: cyanosis, rash Results Laboratory Results: 12/30/18 05:15 12/30/18 05:15 12/30/18 12/30/18 12/30/18 05:15 05:15 05:15 WBC 4.9 RBC 2.92 L Hgb 8.9 L Hct 25.2 L MCV 86 MCH 30.6 MCHC 35.4 RDW 15.0 H Plt Count 52 L Seg Neutrophils % Not Reportable Lymphocytes % Not Reportable Monocytes % Not Reportable Eosinophils % Not Reportable Basophils % Not Reportable Absolute Neutrophils Not Reportable Absolute Lymphocytes Not Reportable Absolute Monocytes Not Reportable Absolute Eosinophils Not Reportable Absolute Basophils Not Reportable Sodium 135.1 L Potassium 4.0 Chloride 100 Carbon Dioxide 28 Anion Gap 7 BUN 65 H Creatinine 2.32 H Est GFR ( Amer) 25 L Est GFR (Non-Af Amer) 20 L Glucose 135 H Calcium 8.1 L TSH 0.62 12/29/18 12/29/18 12/29/18 12:08 15:10 15:10 Troponin I 0.082 0.084 NT-Pro-B Natriuret Pep 8220 H Impressions: Chest X-Ray 12/29/18 11:37 IMPRESSION: NO ACUTE RADIOGRAPHIC FINDING IN THE CHEST. Facial Bones CT 12/29/18 11:50 IMPRESSION: No fracture. Assessment and Plan - Diagnosis (1) Syncopal episodes Qualifiers: Syncope type: unspecified Qualified Code(s): R55 - Syncope and collapse Is this a current diagnosis for this admission?: Yes Plan: Patient presented with a syncopal episode that was immediately preceded by a diarrheal bowel movement. She did have a prodrome of lightheadedness/tunnel vision few moments prior to. Of note, patient has had multiple recent medication changes including prednisone, cytoan, and cardura for treatment of acute nephrotic syndrome and hypertension. Chest x-ray is benign. Facial CT is negative for acute fracture. Head CT demonstrates mild chronic changes of atrophy and microvascular ischemia without acute processes. EKG demonstrates normal sinus rhythm with PVC; no ST segment changes. Laboratory evaluation demonstrates anemia (improved from last week), elevated BUN and creatinine (also improved), indeterminately elevated but stable troponin, and an elevated d-dimer (which in retrospect is not of assistance as the patient recently underwent a renal biopsy). Vital signs to confirm orthostatic blood pressures; improved following IV fluids. Echocardiogram pending. Carotid Doppler pending. THC, A1c, a.m. cortisol are all acceptable. Patient is admitted to the medical floor on continuous cardiac telemetry. Continue home dose metoprolol; holding Cardura, furosemide, and hydralazine. Will provide gentle IV fluids. Monitor daily weights and for evidence of fluid volume overload Continue to monitor orthostats every shift. Ambulate every shift with assistance. Fall precautions. (2) Hypertension Qualifiers: Hypertension type: unspecified Qualified Code(s): I10 - Essential (primary) hypertension Is this a current diagnosis for this admission?: Yes Plan: Improved; 187/86-> 157/74 Prerenal diet. Continue home dose metoprolol. Holding other antihypertensive medications secondary to orthostatic blood pressures and syncopal event. Nephrology is consulted; appreciate Dr. Fernandez's assistance. (3) Nephrotic syndrome Is this a current diagnosis for this admission?: Yes Plan: Creatinine is improved; 2.63-> 2.32 Continue home dose of prednisone. Dr. Fernandez is consulted; management per his expertise. (4) Thrush Is this a current diagnosis for this admission?: Yes Plan: Nystatin swish and swallow 4 times daily. (5) Obesity Qualifiers: Body mass index: BMI 32.0-32.9 Is this a current diagnosis for this admission?: Yes Plan: Dietary discretion is advised. (6) Diarrhea Qualifiers: Diarrhea type: unspecified type Qualified Code(s): R19.7 - Diarrhea, unspecified Is this a current diagnosis for this admission?: Yes Plan: Resolved; no episodes since admission. Patient reports 3 to 4 days of diarrhea bowel movements; 4 episodes daily. She denies fever, chills, abdominal pain, nausea and vomiting. Hemoccult, C. difficile PCR, and stool culture pending. - Time Time Spent with patient: 15-24 minutes Medications reviewed and adjusted accordingly: Yes Anticipated discharge: Home Within: within 24 hours
--- NOTE | 2018-12-30 20:46 | PDOC CONSULTATION ---
Consultation Consult Date: 12/30/18 Consult reason:: JOSE History of Present Illness Admission Date/PCP: 12/29/18 15:29 Evelyn MIRZA MD History of Present Illness: LAYA BRIGHT is a 78 year old female with a history of hypertension and recent diagnosis of JOSE secondary to microscopic polyangiitis based on renal bio psy done at [facility] approximately 1 to 2 months ago was admitted with history of syncope and head and face injury. She gives a history of 2 to 3 days of loose watery stools with no abdominal pains or GI bleeds. Currently doing well and denies any history of focal deficits or severe headaches or visual disturbances. She has had this acute presentation of JOSE with a creatinine peaking around 5 and nephrotic syndrome and was admitted at [facility] 1-2 months ago. 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 She received 2 doses of Cytoxan is on high-dose of prednisone currently down to 50 mg. However after the second dose of her Cytoxan, her hemoglobin and white count and platelets begun to drop and her third dose was therefore withheld.She was transfused and earlier this month. Two weeks earlier, she had complained of oral and nasal bleeds and was seen at [facility] ER and was diagnosed to have thrush and begun on oral nystatin and is obviously getting better. Currently her creatinine is down to 2.3 which is encouraging. However her urine shows active proteinuria and hematuria which is discouraging. Obviously she cannot continue on the Cytoxan given her drop in the CBC elements and therefore need to consider alternatives. From a renal point of view she is okay to be discharged and I will follow-up with with labs in my office on this . Past Medical History Cardiac Medical History: Reports: Atrial Fibrillation Denies: Coronary Artery Disease, Hyperlipidemia Pulmonary Medical History: Reports: None EENT Medical History: Reports: None Neurological Medical History: Reports: None Endocrine Medical History: Reports: Obesity Complications of Diabetes: Reports: None Renal/ Medical History: Reports: Other - JOSE and Nephrotic syndrome with hematuria and been diagnosed with MPA. Malignancy Medical History: Reports: None GI Medical History: Reports: Gastroesophageal Reflux Disease Musculoskeltal Medical History: Reports: None Skin Medical History: Reports: None Psychiatric Medical History: Reports: None Traumatic Medical History: Reports: None Infectious Medical History: Reports: None Hematology Medical History: Reports Anemia of Chronic Kidney Disease Past Surgical History Past Surgical History: Reports: Cholecystectomy, Hysterectomy, Orthopedic Surgery - Carpal Tunnel Social History Lives with: Alone Smoking Status: Never Smoker Frequency of Alcohol Use: None Hx Recreational Drug Use: No Drugs: None Hx Prescription Drug Abuse: No - Advance Directive Resuscitation Status: Full Code Family History Parental Family History Reviewed: No Children Family History Reviewed: No Sibling(s) Family History Reviewed.: No Medication/Allergy Home Medications: Ascorbic Acid [Vitamin C] 1,000 mg PO DAILY 12/29/18 Calcitriol [Rocaltrol] 0.5 mcg PO QHS 12/29/18 Cholecalciferol (Vitamin D3) [Vitamin D3 1000 Unit Tablet] 1,000 unit PO DAILY 12/29/18 Doxazosin Mesylate [Cardura 2 mg Tablet] 2 mg PO QHS 12/29/18 Furosemide [Lasix 20 mg Tablet] 20 mg PO BID 12/29/18 Hydralazine HCl 100 mg PO Q8 12/29/18 Magnesium Oxide [Magnesium] 500 mg PO DAILY 12/29/18 Metoprolol Tartrate [Lopressor 50 mg Tablet] 50 mg PO Q12 12/29/18 Nystatin [Mycostatin 625310 Unit/1 ml Susp 60 ml Btl] 500,000 unit PO QID 12/29/18 Pantoprazole Sodium [Protonix [address] Tablet] 40 mg PO QAM 12/29/18 Pravastatin Sodium [Pravachol] 40 mg PO QPM 12/29/18 Prednisone [Deltasone 20 mg Tablet] 20 mg PO Q12 12/29/18 Sodium Bicarbonate [Sodium Bicarbonate 650 mg Tablet] 650 mg PO QID 12/29/18 Ubidecarenone/Vit E Acet [Co Q-10 100 mg Softgel] 1 cap PO QHS 12/29/18 l Gasseri/B Bifidum/B Longum [[employer] Capsule] 1 cap PO DAILY 02/11 Allergies/Adverse Reactions: codeine Allergy (Unknown, Unverified 11/27/18 09:01) Sulfa (Sulfonamide Antibiotics) Allergy (Unknown, Unverified 11/27/18 09:01) Review of Systems Constitutional: PRESENT: fatigue, weakness, weight loss. ABSENT: fever(s), headache(s), night sweats Ears: ABSENT: hearing changes Nose, Mouth, and Throat: ABSENT: mouth pain, sore throat Cardiovascular: ABSENT: dyspnea on exertion, edema, orthropnea, palpitations Respiratory: ABSENT: dyspnea, hemoptysis Gastrointestinal: PRESENT: diarrhea. ABSENT: abdominal pain, bloating, coffee ground emesis, dysphagia, heartburn, hematemesis, hematochezia Genitourinary: ABSENT: difficulty urinating, dysuria, hematuria Musculoskeletal: ABSENT: deformity, joint swelling Integumentary: ABSENT: erythema, lesions, pruritus, rash Neurological: ABSENT: abnormal movements, abnormal speech, confusion, convulsions, focal weakness, frequent falls Hematologic/Lymphatic: PRESENT: easy bleeding - Oral thrush and is on nystatin.. ABSENT: easy bruising, lymphadenopathy Physical Exam Vital Signs: Temp Pulse Resp BP Pulse Ox 98 F 66 16 157/74 H 98 12/30/18 16:00 12/30/18 16:00 12/30/18 16:00 12/30/18 16:00 12/30/18 16:00 Intake & Output 12/29/18 12/30/18 12/31/18 06:59 06:59 06:59 Intake Total 550 Balance 550 Weight 82.554 kg General appearance: PRESENT: no acute distress Exam: Some facial and right periorbital ecchymosis. Eye exam: PRESENT: EOMI, PERRLA Ear exam: PRESENT: normal external ear exam Mouth exam: PRESENT: moist, neck supple Neck exam: ABSENT: meningismus, tenderness, thyromegaly Respiratory exam: PRESENT: clear to auscultation destiney. ABSENT: crackles Cardiovascular exam: PRESENT: +S1, +S2 GI/Abdominal exam: PRESENT: normal bowel sounds, soft. ABSENT: organomegaly, tenderness Extremities exam: PRESENT: pedal edema Neurological exam: PRESENT: alert, awake, oriented to person, oriented to place, oriented to time Psychiatric exam: PRESENT: anxious Skin exam: ABSENT: cyanosis, mottled, pallor, rash Results Laboratory Results: 12/30/18 05:15 12/30/18 05:15 12/30/18 12/30/18 12/30/18 05:15 05:15 05:15 WBC 4.9 RBC 2.92 L Hgb 8.9 L Hct 25.2 L MCV 86 MCH 30.6 MCHC 35.4 RDW 15.0 H Plt Count 52 L Seg Neutrophils % Not Reportable Lymphocytes % Not Reportable Monocytes % Not Reportable Eosinophils % Not Reportable Basophils % Not Reportable Absolute Neutrophils Not Reportable Absolute Lymphocytes Not Reportable Absolute Monocytes Not Reportable Absolute Eosinophils Not Reportable Absolute Basophils Not Reportable Sodium 135.1 L Potassium 4.0 Chloride 100 Carbon Dioxide 28 Anion Gap 7 BUN 65 H Creatinine 2.32 H Est GFR ( Amer) 25 L Est GFR (Non-Af Amer) 20 L Glucose 135 H Calcium 8.1 L TSH 0.62 12/29/18 12/29/18 12/29/18 12:08 15:10 15:10 Troponin I 0.082 0.084 NT-Pro-B Natriuret Pep 8220 H Impressions: Chest X-Ray 12/29/18 11:37 IMPRESSION: NO ACUTE RADIOGRAPHIC FINDING IN THE CHEST. Facial Bones CT 12/29/18 11:50 IMPRESSION: No fracture. Assessment & Plan - Diagnosis (1) JOSE (acute kidney injury) Plan: Diagnosed with MPA. She was begun on prednisone/Cytoxan. She has got adverse effects of Cytoxan with dropping of formed elements of blood and is being withheld. Monitor drop in hemoglobin white count and platelets. Labs have been ordered tomorrow. Follow-up as an outpatient on with a CBC, Chem-12 and urine analysis if stable.No history of any GI bleed other than oral bleed from apparent thrush and is on nystatin. (2) Microscopic polyangiitis Plan: As mentioned earlier. (3) Diarrhea Qualifiers: Diarrhea type: unspecified type Qualified Code(s): R19.7 - Diarrhea, unspecified Is this a current diagnosis for this admission?: Yes Plan: Initial presentation for this admission with syncope. Monitor. Rule out possibility of C. difficile if active. (4) Hypertension Qualifiers: Hypertension type: unspecified Qualified Code(s): I10 - Essential (primary) hypertension Is this a current diagnosis for this admission?: Yes Plan: Uncontrolled and will need to titrate medications accordingly. (5) Syncopal episodes Qualifiers: Syncope type: unspecified Qualified Code(s): R55 - Syncope and collapse Is this a current diagnosis for this admission?: Yes Plan: Possibly secondary to volume loss from her acute diarrhea. Presently stable. Monitor. (6) Thrush Is this a current diagnosis for this admission?: Yes Plan: Nystatin.
[2018-12-30] MEDS: CALCITRIOL 0.25 MCG CAPSULE PO SCH (21:46)
[2018-12-30] MEDS: ATORVASTATIN CALCIUM 10 MG TABLET PO SCH (21:46)
[2018-12-31 05:12] LABS: HEMOGLOBIN 8.9 g/dL (12.0-15.5); MEAN CORPUSCULAR HEMOGLOBIN 30.3 pg (27.0-33.4); MEAN CORPUSCULAR HGB CONC 35.5 g/dL (32.0-36.0); MEAN CORPUSCULAR VOLUME 86 fl (80-97); RED BLOOD COUNT 2.93 10^6/uL (3.72-5.28); RED CELL DISTRIBUTION WIDTH 15.6 % (11.5-14.0); WHITE BLOOD COUNT 5.2 10^3/uL (4.0-10.5)
[2018-12-31 05:46] LABS: PLATELET COUNT 57 10^3/uL (150-450)
[2018-12-31 06:25] LABS: ANION GAP 9 (5-19); BLOOD UREA NITROGEN 65 mg/dL (7-20); CALCIUM 8.1 mg/dL (8.4-10.2); CARBON DIOXIDE 23 mmol/L (22-30); CHLORIDE 102 mmol/L (98-107); GLUCOSE 153 mg/dL (75-110); SODIUM 134.2 mmol/L (137-145)
[2018-12-31] MEDS: PANTOPRAZOLE SODIUM 40 MG TABLET.DR PO SCH (08:32)
--- NOTE | 2018-12-31 08:38 | RADIOLOGY REPORT (SQ) ---
EXAM DESCRIPTION: CAROTID DOPPLER COMPLETED DATE/TIME: 12/30/2018 7:14 pm REASON FOR STUDY: syncope I11.0 HYPERTENSIVE HEART DISEASE WITH HEART FAILURE R55 SYNCOPE AND ARIEL APSE COMPARISON: None. TECHNIQUE: Grayscale ultrasound, Doppler velocity and spectra, and color Doppler images acquired of the extra-cranial carotid and vertebral arteries. Images stored on PACS. LIMITATIONS: None. FINDINGS: RIGHT CAROTID CCA Velocities: Within normal limits. ICA Velocities Peak systolic 0.63 m/s. End diastolic 0.13 m/s. Proximal ICA/CCA peak systolic ratio 1.6. Spectra normal. No significant plaque. LEFT CAROTID CCA Velocities: Within normal limits. ICA Velocities Peak systolic 0.54 m/s. End diastolic 0.14 m/s. Proximal ICA/CCA peak systolic ratio 1.9. Spectra normal. No significant plaque. VERTEBRAL ARTERIES: Antegrade flow. Normal waveforms. SUBCLAVIAN ARTERIES: No finding. OTHER: No other significant finding. IMPRESSION: NO HEMODYNAMICALLY SIGNIFICANT STENOSIS. COMMENT: Quality ID #[id number]: Velocity criteria are extrapolated from the diameter data as defined by t he Society of Radiologists in Ultrasound Consensus Conference. Radiology 2003: 229; 340-346. TECHNICAL DOCUMENTATION: JOB ID: [id number] [employer] [employer]- All Rights Reserved Reading location - IP/workstation name: [email or web address]
[2018-12-31] MEDS: METOPROLOL TARTRATE 50 MG TABLET PO SCH (10:07)
[2018-12-31] MEDS: PREDNISONE 20 MG TABLET PO SCH ×2 (10:07→22:20)
[2018-12-31] MEDS: ASCORBIC ACID 500 MG TABLET PO SCH (10:07)
[2018-12-31] MEDS: LACTOBACILLUS ACIDOPHILUS 250 MG TAB PO SCH ×2 (10:07→17:42)
[2018-12-31] MEDS: MAGNESIUM OXIDE 400 MG TABLET PO SCH (10:07)
[2018-12-31] MEDS: NYSTATIN/DEXAMETH/DIPHEN SUSP 120 ML PO SCH ×4 (10:09→22:18)
[2018-12-31] MEDS: CHOLECALCIFEROL (D3) 1,000 UNIT TABLET PO SCH (10:11)
[2018-12-31] MEDS: DILTIAZEM HCL 30 MG TABLET PO SCH ×2 (14:44→17:42)
[2018-12-31] MEDS: AMOXICILLIN TR/POT CLAVULANATE 500-125 MG TAB PO SCH ×2 (14:45→22:20)
[2018-12-31] MEDS ORDERED: ALPRAZOLAM 0.25 MG TABLET PO PRN (17:52)
--- NOTE | 2018-12-31 18:08 | PDOC PROGRESS REPORT ---
Subjective Progress Note for:: 12/31/18 Subjective:: LAYA BRIGHT is a 78 year old female with a past medical history of hypertension, GERD, and recent diagnosis of nephrotic syndrome who was admitted 12/29/2018 for syncopal event. Patient was seen on afternoon rounds with friend present. She was found sitting up to the edge of the bed comfortably on room air. She reports that she is feeling well, but very frustrated with her blood pressure, blood pressure medications, and now a.fib. She feels like her doctors are not communicating well with each other; she is advised that her PCP will be corrected in [facility] so that he will receive faxes of her admission and discharge. She seems to calm after this, but continues to be apologetic and tearful regarding her anxiety. Reassurance is provided; we understand her frustration/worries and are not upset by her expressing them to us. She had no other questions or concerns at this time. She denies fever, chills, headache, dizziness, chest pain, palpitations, d yspnea, orthopnea, abdominal pain, nausea vomiting and diarrhea. No concerns per nursing. Reason For Visit: SYNCOPE Physical Exam Vital Signs: Temp Pulse Resp BP Pulse Ox 97.7 F 86 16 179/75 H 96 12/31/18 03:50 12/31/18 11:33 12/31/18 11:33 12/31/18 03:50 12/31/18 11:33 Intake & Output 12/30/18 12/31/18 01/01/19 06:59 06:59 06:59 Intake Total 550 Balance 550 Weight 82.554 kg 87.2 kg General appearance: PRESENT: no acute distress, cooperative, obese, well- developed, well-nourished Head exam: PRESENT: atraumatic, normocephalic Eye exam: PRESENT: conjunctiva pink, EOMI, PERRLA. ABSENT: scleral icterus Ear exam: PRESENT: normal external ear exam Mouth exam: PRESENT: moist, tongue midline Neck exam: ABSENT: carotid bruit, JVD, lymphadenopathy, thyromegaly Respiratory exam: PRESENT: clear to auscultation destiney, symmetrical, unlabored. ABSENT: rales, rhonchi, wheezes Cardiovascular exam: PRESENT: irregular rhythm, +S1, +S2. ABSENT: diastolic murmur, rubs, systolic murmur Pulses: PRESENT: normal dorsalis pedis pul Vascular exam: PRESENT: normal capillary refill GI/Abdominal exam: PRESENT: normal bowel sounds, soft. ABSENT: distended, guarding, mass, organolmegaly, rebound, tenderness Rectal exam: PRESENT: deferred Extremities exam: PRESENT: full ROM, pedal edema - +1 bilaterally. ABSENT: calf tenderness, clubbing Musculoskeletal exam: PRESENT: ambulatory Neurological exam: PRESENT: alert, awake, oriented to person, oriented to place, oriented to time, oriented to situation, CN II-XII grossly intact. ABSENT: motor sensory deficit Psychiatric exam: PRESENT: agitated, anxious, appropriate affect. ABSENT: homicidal ideation, suicidal ideation Skin exam: PRESENT: dry, intact, warm. ABSENT: cyanosis, rash Results Laboratory Results: 12/31/18 04:35 12/31/18 04:35 12/31/18 12/31/18 04:35 04:35 WBC 5.2 RBC 2.93 L Hgb 8.9 L Hct 25.0 L MCV 86 MCH 30.3 MCHC 35.5 RDW 15.6 H Plt Count 57 L Sodium 134.2 L Potassium 4.0 Chloride 102 Carbon Dioxide 23 Anion Gap 9 BUN 65 H Creatinine 2.24 H Est GFR ( Amer) 26 L Est GFR (Non-Af Amer) 21 L Glucose 153 H Calcium 8.1 L 12/29/18 14:06 Clean Catch Midstream Urine Culture - Final Klebsiella Pneumoniae 12/29/18 12/29/18 12/29/18 12:08 15:10 15:10 Troponin I 0.082 0.084 NT-Pro-B Natriuret Pep 8220 H Impressions: Chest X-Ray 12/29/18 11:37 IMPRESSION: NO ACUTE RADIOGRAPHIC FINDING IN THE CHEST. Facial Bones CT 12/29/18 11:50 IMPRESSION: No fracture. Carotid Doppler Study 12/30/18 00:00 IMPRESSION: NO HEMODYNAMICALLY SIGNIFICANT STENOSIS. Assessment and Plan - Diagnosis (1) Syncopal episodes Qualifiers: Syncope type: unspecified Qualified Code(s): R55 - Syncope and collapse Is this a current diagnosis for this admission?: Yes Plan: Patient presented with a syncopal episode that was immediately preceded by a diarrheal bowel movement. She did have a prodrome of lightheadedness/tunnel vi katy few moments prior to. Of note, patient has had multiple recent medication changes including pre dnisone, cytoan, and cardura for treatment of acute nephrotic syndrome and hypertension. Chest x-ray is benign. Facial CT is negative for acute fracture. Head CT demonstrates mild chronic changes of atrophy and microvascular ischemia without acute processes. EKG demonstrates normal sinus rhythm with PVC; no ST segment changes. Laboratory evaluation demonstrates anemia (improved from last week), elevated BUN and creatinine (also improved), indeterminately elevated but stable troponin, and an elevated d-dimer (which in retrospect is not of assistance as the patient recently underwent a renal biopsy). Vital signs to confirm orthostatic blood pressures; resolved following IV fluids. Echocardiogram pending. Carotid Doppler is negative for hemodynamically significant stenosis. THC, A1c, a.m. cortisol are all acceptable. Patient was noted to go into atrial fibrillation with RVR while in the restroom this morning; heart rate trended down to the mid 80s with rest. Patient reports she has no previous history of atrial fibrillation and was rhythm unaware this morning. Patient is admitted to the medical floor on continuous cardiac telemetry. Increase metoprolol dose. Ambulate every shift with assistance. Fall precautions. (2) Hypertension Qualifiers: Hypertension type: unspecified Qualified Code(s): I10 - Essential (primary) hypertension Is this a current diagnosis for this admission?: Yes Plan: Remains labile 134/71 - 180/80 Prerenal diet. Increase metoprolol dose. Start diltiazem for A. fib w/ RVR this morning. (3) Nephrotic syndrome Is this a current diagnosis for this admission?: Yes Plan: Creatinine is improved; 2.63-> 2.32-> 2.24 Continue home dose of prednisone. Dr. Fernandez is consulted; management per his expertise. Dr. Fernandez has cleared for discharge and signed off. (4) Thrush Is this a current diagnosis for this admission?: Yes Plan: Nystatin swish and swallow 4 times daily. (5) Obesity Qualifiers: Body mass index: BMI 32.0-32.9 Is this a current diagnosis for this admission?: Yes Plan: Dietary discretion is advised. (6) Diarrhea Qualifiers: Diarrhea type: unspecified type Qualified Code(s): R19.7 - Diarrhea, unspecified Is this a current diagnosis for this admission?: Yes Plan: Resolved; no episodes since admission. Patient reports 3 to 4 days of diarrhea bowel movements; 4 episodes daily. She denies fever, chills, abdominal pain, nausea and vomiting. Hemoccult, C. difficile PCR, and stool culture pending. (7) Afib Qualifiers: Atrial fibrillation type: unspecified Qualified Code(s): I48.91 - Unspecified atrial fibrillation Is this a current diagnosis for this admission?: Yes Plan: Patient was up to the restroom this morning, nursing noted that she went into atrial fibrillation with RVR. The patient remained rhythm unaware and her heart rate trended down to mid 80s with return to the bed. Patient denies history of PAF. EKG confirms that she remains in atrial fibrillation. Continue to monitor on cardiac telemetry. We will increase home dose metoprolol to 100 mg BID for improved rate control. Start daily aspirin therapy. Did not discuss anticoagulation with patient as she was highly agitated /emotional this morning. 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 [id number] Score 4; 4.8% HAS-Bled Score 3; 3.7-5.8% (8) Anxiety Is this a current diagnosis for this admission?: Yes Plan: Reassurance. Twice daily BuSpar. Xanax 0.25 mg p.o. q8 hr as needed. - Time Time Spent with patient: 35 or more minutes Medications reviewed and adjusted accordingly: Yes Anticipated discharge: Home Within: within 48 hours
--- NOTE | 2018-12-31 20:05 | EKG REPORT ---
SEVERITY:- ABNORMAL ECG - ATRIAL FIBRILLATION MINIMAL ST DEPRESSION, ANTEROLATERAL LEADS BORDERLINE PROLONGED QT INTERVAL : Confirmed by: Britney Ferrell MD 31-Dec-2018 20:04:36
--- NOTE | 2018-12-31 20:37 | XCELERA REPORT ---
[address] [address] Transthoracic Echocardiogram Report Name: LAYA BRIGHT Age: 78 yrs Gender: Female : 1940 Patient Status: [facility] Study Date: 12/30/2018 10:08 AM Height: 63 in Weight: 182 lb BSA: 1.9 m2 Procedure: A two-dimensional transthoracic echocardiogram with color flow Doppler was performed. The study was technically limited with all images being suboptimal in quality. Images were not obtained from all of the standard acoustic windows due to the limited scope of the study. Reason For Study: Syncope, severe HTN, elevated BNP History: Syncope, severe HTN, elevated BNP. Ordering Physician: EVONNE FLOWERS Performed By: Interpretation Summary The left ventricle is normal in size. There is normal left ventricular wall thickness. LV EF is 55% to 60% The left ventricular ejection fraction is within normal limits. Doppler measurements suggest impaired left ventricular relaxation, which is associated with grade I/IV or mild diastolic dysfunction The left ventricular wall motion is normal. There is no thrombus. Cannot assess ASD ,VSd , or PFO due to limited subcostal views. The right atrium is normal. The left atrium is mildly dilated. There is no evidence of mitral valve prolapse. There is no vegetation seen on the mitral valve. There is no mitral valve stenosis. There is a severe amount of mitral regurgitation There is no aortic valve stenosis There is no LVOT obstruction. No aortic regurgitation is present. There is no tricuspid stenosis. No tricuspid regurgitation. Unable to calculate RVSP due to lack of TR jet. There is no pulmonic valvular stenosis. There is no pulmonic valvular regurgitation. There is no pericardial effusion. MMode/2D Measurements & Calculations RVDd: 3.1 cm LVIDd: 5.5 cm FS: 31.5 % Ao root diam: 3.1 cm IVSd: 0.76 cm LVIDs: 3.8 cm EDV(Teich): 148.4 ml Ao root area: 7.8 cm2 LVPWd: 1.2 cm ESV(Teich): 61.2 ml EF(Teich): 58.8 % Doppler Measurements & Calculations MV E max olga: MV dec slope: Ao V2 max: LV V1 max P.8 cm/sec 331.1 cm/sec2 132.7 cm/sec 3.3 mmHg MV A max olga: MV dec time: 0.21 sec Ao max PG: LV V1 max: 100.9 cm/sec 7.0 mmHg 91.5 cm/sec MV E/A: 0.70 LV dP/dt: 1870 mmHg/s PA V2 max: 105.7 cm/sec PA max P.5 mmHg Left Ventricle The left ventricle is normal in size. There is normal left ventricular wall thickness. LV EF is 55% to 60%. The left ventricular ejection fraction is within normal limits. Doppler measurements suggest impaired left ventricular relaxation, which is associated with grade I/IV or mild diastolic dysfunction. The left ventricular wall motion is normal. There is no thrombus. Cannot assess ASD ,VSd , or PFO due to limited subcostal views. Right Ventricle The right ventricle is not well visualized secondary to technical limitations. Atria The right atrium is normal. The left atrium is mildly dilated. Mitral Valve There is no evidence of mitral valve prolapse. There is no vegetation seen on the mitral valve. There is no mitral valve stenosis. There is a severe amount of mitral regurgitation. Aortic Valve There is no aortic valvular vegetation. There is no aortic valve stenosis. There is no LVOT obstruction. No aortic regurgitation is present. Tricuspid Valve There is no tricuspid stenosis. No tricuspid regurgitation. Unable to calculate RVSP due to lack of TR jet. Pulmonic Valve There is no pulmonic valvular stenosis. There is no pulmonic valvular regurgitation. Great Vessels The aortic root is not well visualized but is probably normal size. Effusions There is no pericardial effusion. : EVONNE FLOWERS > Britney Ferrell
[2018-12-31] MEDS ORDERED: METOPROLOL TARTRATE 50 MG TABLET PO SCH ×2 (22:00)
[2018-12-31] MEDS ORDERED: BUSPIRONE HCL 10 MG TABLET PO SCH (22:00)
[2018-12-31] MEDS: NYSTATIN TOPICAL POWDER 15 GM TP SCH (22:15)
[2018-12-31] MEDS: CALCITRIOL 0.25 MCG CAPSULE PO SCH (22:20)
[2018-12-31] MEDS: METOPROLOL TARTRATE 100 MG TABLET PO SCH (22:20)
[2018-12-31] MEDS: ATORVASTATIN CALCIUM 10 MG TABLET PO SCH (22:20)
[2018-12-31] MEDS: ASPIRIN 81 MG TABLET, ENT COATED PO SCH ×2 (22:21→22:28)
[2019-01-01] MEDS: ACETAMINOPHEN 325 MG TABLET PO PRN (05:23)
[2019-01-01] MEDS: AMOXICILLIN TR/POT CLAVULANATE 500-125 MG TAB PO SCH ×2 (05:23→15:26)
[2019-01-01] MEDS ORDERED: BUSPIRONE HCL 10 MG TABLET PO SCH (08:00)
[2019-01-01] MEDS: PANTOPRAZOLE SODIUM 40 MG TABLET.DR PO SCH (08:02)
[2019-01-01] MEDS: ASCORBIC ACID 500 MG TABLET PO SCH (10:36)
[2019-01-01] MEDS: MAGNESIUM OXIDE 400 MG TABLET PO SCH (10:36)
[2019-01-01] MEDS: PREDNISONE 20 MG TABLET PO SCH (10:36)
[2019-01-01] MEDS: METOPROLOL TARTRATE 100 MG TABLET PO SCH (10:36)
[2019-01-01] MEDS: CHOLECALCIFEROL (D3) 1,000 UNIT TABLET PO SCH (10:36)
[2019-01-01] MEDS: LACTOBACILLUS ACIDOPHILUS 250 MG TAB PO SCH (10:36)
[2019-01-01] MEDS: NYSTATIN/DEXAMETH/DIPHEN SUSP 120 ML PO SCH ×2 (10:37→15:26)
[2019-01-01] MEDS: NYSTATIN TOPICAL POWDER 15 GM TP SCH (10:38)
[2019-01-01 15:22] VITALS: BP 160/68
--- NOTE | 2019-01-02 21:42 | PDOC DISCHARGE SUMMARY ---
General - Admit/Disc Date/PCP Admission Date/Primary Care Provider: 12/29/18 15:29 Evelyn FERNANDEZ MD [place] Discharge Date: 01/01/19 - Discharge Diagnosis (1) Syncopal episodes Is this a current diagnosis for this admission?: Yes Summary: Patient presented with a syncopal episode that was immediately preceded by a diarrheal bowel movement. She did have a prodrome of lightheadedness/tunnel vision few moments prior to. Of note, patient has had multiple recent medication changes including prednisone, Cytoxan, and cardura for treatment of acute nephrotic syndrome and hypertension. Chest x-ray is benign. Facial CT is negative for acute fracture. Head CT demonstrates mild chronic changes of atrophy and microvascular ischemia without acute processes. EKG on admission demonstrated normal sinus rhythm with PVC; no ST segment changes. Laboratory evaluation demonstrated anemia (improved from last week), elevated BUN and creatinine (also improved), indeterminately elevated but stable troponin, and an elevated d-dimer (which in retrospect is not of assistance as the patient recently underwent a renal biopsy). Vital signs confirmed orthostatic blood pressures; resolved following IV fluids. Echocardiogram was reassuring; nml LVEF, mild diastolic dysfunction. Carotid Doppler is negative for hemodynamically significant stenosis. THC, A1c, a.m. cortisol are all acceptable. Patient was noted to go into atrial fibrillation with RVR during admission; heart rate trended down to the mid 80s with rest. Patient reports she has no previous history of atrial fibrillation and remains rhythm unaware. Patient was admitted to the medical floor on continuous cardiac telemetry. Continue increased metoprolol dose. Start full dose aspirin. Patient is discharged to home. She is advised to follow up with her primary care provider within 1 week, with Dr. Fernandez as scheduled, and to establish with cardiology (Dr. Bright) within 1- 2 weeks. Will deffer chronic anticoagulation while patient is under treatment for nephrotic syndrome; discuss with Cardiology. Return to the emergency department as needed for concerning symptoms. (2) Hypertension Is this a current diagnosis for this admission?: Yes Summary: Improved; 160/68 Prerenal diet. Continue increased metoprolol dose. All other home antihypertensives are discontinued. (3) Nephrotic syndrome Is this a current diagnosis for this admission?: Yes Summary: Creatinine is improved; 2.63-> 2.32-> 2.24 Continue home dose of prednisone. Dr. Fernnadez is consulted; has cleared for discharge. Patient to follow up in his office within 1 week. (4) Thrush Is this a current diagnosis for this admission?: Yes Summary: Continue Nystatin swish and swallow 4 times daily. (5) Obesity Is this a current diagnosis for this admission?: Yes Summary: Dietary discretion is advised (6) Diarrhea Is this a current diagnosis for this admission?: Yes Summary: Resolved; no episodes since admission. On admission, patient reported 3 to 4 days of diarrhea bowel movements; 4 episodes daily. She denied fever, chills, abdominal pain, nausea and vomiting. (7) Afib Is this a current diagnosis for this admission?: Yes Summary: Patient was up to the restroom, nursing noted that she went into atrial fib rillation with RVR. The patient remained rhythm unaware and her heart rate trended down to mid 80s with return to the bed. Patient denies history of PAF. EKG and telemetry monitoring confirms that she remains in atrial fibrillation. Increased home dose metoprolol to 100 mg BID with improved rate control. Start daily aspirin therapy. 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 Fernandez. Advises patient should start full dose aspirin and establish with customer success director. [id number] Score 4; 4.8% HAS-Bled Score 3; 3.7-5.8% Patient is provided referral for Dr. Bright ([facility]); recommend follow up appointment within 1 week. (8) Anxiety Is this a current diagnosis for this admission?: Yes Summary: Reassurance provided. Started on twice daily BuSpar. - Additional Information Resuscitation Status: Full Code Discharge Diet: Cardiac Discharge Activity: Activity As Tolerated, Balance Activity w/Rest, Weigh Daily Prescriptions: Amox Tr/Potassium Clavulanate [Augmentin "500" Tablet] 1 tab PO Q8 #12 tablet Aspirin [Aspirin 325 mg Tablet] 325 mg PO DAILY PRN #1 pkg PRN Reason: Buspirone HCl [Buspar 10 mg Tablet] 10 mg PO ASDIR PRN #45 tablet PRN Reason: Furosemide [Lasix] 10 mg PO ASDIR PRN #15 tablet PRN Reason: Lactobacillus Acidophilus [Bacid 250 mg Tablet] 250 mg PO BID #20 tab Metoprolol Tartrate [Lopressor 100 mg Tablet] 100 mg PO Q12 #60 tablet Nystatin [Mycostatin Topical Powder 15 gm] 1 applic TP BID #1 bottle Home Medications: Ascorbic Acid [Vitamin C] 1,000 mg PO DAILY 12/29/18 Calcitriol [Rocaltrol 0.5 mcg Capsule] 0.5 mcg PO QHS 12/29/18 Cholecalciferol (Vitamin D3) [Vitamin D3 1000 Unit Tablet] 1,000 unit PO DAILY 12/29/18 Magnesium Oxide [Magnesium] 500 mg PO DAILY 12/29/18 Nystatin [Mycostatin 110120 Unit/1 ml Susp 60 ml Btl] 500,000 unit PO QID 12/29/18 Pantoprazole Sodium [Protonix [address] Tablet] 40 mg PO QAM 12/29/18 Pravastatin Sodium [Pravachol] 40 mg PO QPM 12/29/18 Prednisone [Deltasone 20 mg Tablet] 20 mg PO Q12 12/29/18 Sodium Bicarbonate [Sodium Bicarbonate 650 mg Tablet] 650 mg PO QID 12/29/18 Ubidecarenone/Vit E Acet [Co Q-10 100 mg Softgel] 1 cap PO QHS 12/29/18 l Gasseri/B Bifidum/B Longum [Soni [employer] Capsule] 1 cap PO DAILY Acetaminophen [Tylenol 325 mg Tablet] 650 mg PO Q4HP PRN tablet 01/01/19 Alprazolam [Xanax 0.25 mg Tablet] 0.25 mg PO Q8HP PRN #0 tablet 01/01/19 Amox Tr/Potassium Clavulanate [Augmentin "500" Tablet] 1 tab PO Q8 #12 tablet 01/01/19 Aspirin [Aspirin 325 mg Tablet] 325 mg PO DAILY PRN #1 pkg 01/01/19 Buspirone HCl [Buspar 10 mg Tablet] 10 mg PO ASDIR PRN #45 tablet 01/01/19 Furosemide [Lasix] 10 mg PO ASDIR PRN #15 tablet 01/01/19 Lactobacillus Acidophilus [Bacid 250 mg Tablet] 250 mg PO BID #20 tab 01/01/19 Metoprolol Tartrate [Lopressor 100 mg Tablet] 100 mg PO Q12 #60 tablet 01/01/19 Nystatin [Mycostatin Topical Powder 15 gm] 1 applic TP BID #1 bottle 01/01/19 History of Present Illness History of Present Illness: LAYA BRIGHT is a 78 year old female with a past medical history of hypertension, GERD, and recent diagnosis of nephrotic syndrome who presented to the emergency department after a syncopal event. [facility]; she was admitted there for gross hematuria and found to have nephrotic syndrome. She is currently followed by Dr. Fernandez; on prednisone and cytoan, recently placed on cardura for hypertension. The patient reports that she had a near syncopal event in the kitchen, moved to the bathroom she had a large diarrheal bowel mo vement immediately followed by a syncopal event resulting in her falling against her shower and obtaining a facial injury (ecchymosis to right eye/cheek). Patient denies associated diaphoresis, chest pain, palpitations, dyspnea. She does note that she has had loose bowel movements for approximately 3 days; 3-4 episodes daily. Evaluation in the emergency department is revealed orthostatic vital signs, anemia (hemoglobin 10.4), creatinine of 2.63 and BUN of 72 (actually improved from 1 week ago when creatinine was 3.18), indeterminately elevated troponin stable at 0.082, EKG demonstrating normal sinus rhythm without ST segment changes, benign chest x-ray, head CT and facial CT. Patient is referred to the hospitalist service for admission and management of the above-stated complaints. Physical Exam Vital Signs: Temp Pulse Resp BP Pulse Ox 98.3 F 76 18 160/68 H 98 01/01/19 15:19 01/01/19 15:19 01/01/19 15:19 01/01/19 15:19 01/01/19 15:19 Intake & Output 01/01/19 01/02/19 01/03/19 06:59 06:59 06:59 Intake Total 640 Balance 640 Weight 86.4 kg General appearance: PRESENT: no acute distress, obese, well-developed, well- nourished Head exam: PRESENT: normocephalic, other - ecchymosis to right periorbit/cheek Eye exam: PRESENT: conjunctiva pink, EOMI, PERRLA. ABSENT: scleral icterus Ear exam: PRESENT: normal external ear exam Mouth exam: PRESENT: moist, tongue midline Neck exam: ABSENT: carotid bruit, JVD, lymphadenopathy, thyromegaly Respiratory exam: PRESENT: clear to auscultation destiney, symmetrical, unlabored. ABSENT: rales, rhonchi, wheezes Cardiovascular exam: PRESENT: irregular rhythm, +S1, +S2. ABSENT: diastolic murmur, rubs, systolic murmur Pulses: PRESENT: normal dorsalis pedis pul Vascular exam: PRESENT: normal capillary refill GI/Abdominal exam: PRESENT: normal bowel sounds, soft. ABSENT: distended, guarding, mass, organolmegaly, rebound, tenderness Rectal exam: PRESENT: deferred Extremities exam: PRESENT: full ROM, pedal edema - +1 pedal edema bilaterally. ABSENT: calf tenderness, clubbing Neurological exam: PRESENT: alert, awake, oriented to person, oriented to place, oriented to time, oriented to situation, CN II-XII grossly intact. ABSENT: motor sensory deficit Psychiatric exam: PRESENT: anxious, appropriate affect, normal mood. ABSENT: homicidal ideation, suicidal ideation Skin exam: PRESENT: dry, intact, warm. ABSENT: cyanosis, rash Results Laboratory Results: 12/31/18 04:35 12/31/18 04:35 12/29/18 12/29/18 12/29/18 12:08 15:10 15:10 Troponin I 0.082 0.084 NT-Pro-B Natriuret Pep 8220 H Impressions: Chest X-Ray 12/29/18 11:37 IMPRESSION: NO ACUTE RADIOGRAPHIC FINDING IN THE CHEST. Facial Bones CT 12/29/18 11:50 IMPRESSION: No fracture. Carotid Doppler Study 12/30/18 00:00 IMPRESSION: NO HEMODYNAMICALLY SIGNIFICANT STENOSIS. Qualifiers - * PATIENT BEING DISCHARGED WITH ANY OF THE FOLLOWING DIAGNOSIS: No Acute Heart Failure Is this a Heart Failure Patient?: No Plan Discharge Plan: Follow-up with primary care provider within 1 week. Follow-up with Dr. Fernandez as scheduled. Establish care with Dr. Bright (cardiology) for new onset atrial fibrillation. Change positions slowly. Drink plenty of water. Return to the emergency department as needed for concerning symptoms. Time Spent: Greater than 30 Minutes
== END 2019-01-01 16:00 | disposition home or self-care (01) ==
LOC: ER 11:29 → EH 15:29 → INTOOBSV 15:29 → 5 17:11
PROVIDERS: ADMIT Internal Medicine; ATTEND Internal Medicine
DX: R55 Syncope and collapse (principal); I11.0 Hypertensive heart disease with heart failure; I50.9 Heart failure, unspecified; K21.9 Gastro-esophageal reflux disease without esophagitis; N04.9 Nephrotic syndrome with unspecified morphologic changes; I48.91 Unspecified atrial fibrillation; B37.0 Candidal stomatitis; R19.7 Diarrhea, unspecified; E66.9 Obesity, unspecified; Z68.32 Body mass index [BMI] 32.0-32.9, adult; Z79.899 Other long term (current) drug therapy; Z90.49 Acquired absence of other specified parts of digestive tract; Z90.710 Acquired absence of both cervix and uterus; Z88.2 Allergy status to sulfonamides; Z88.8 Allergy status to other drugs, medicaments and biological substances
CPT/HCPCS: 93005 ×2; 99285; 96360; 86900; 86901; 36415 ×3; 87086; 86850; 82962; 84443; 85025 ×2; 85027; 87088; 80048 ×2; 80053; 81001; 84484; 87186; 82533; 83036; 85379; 83880; 93306; 93880; 71045; 70450; 70486; 93010 ×2; A9270 ×36; J7040; J0696; J3490 ×3; G0378; J7512

== ENCOUNTER → 2019-01-06 | Outpatient (CLI) | payer MEDICARE ==
[2019-01-06 12:49] LABS: HEMATOCRIT 24.1 % (36.0-47.0); HEMOGLOBIN 8.5 g/dL (12.0-15.5); MEAN CORPUSCULAR HEMOGLOBIN 30.3 pg (27.0-33.4); MEAN CORPUSCULAR HGB CONC 35.3 g/dL (32.0-36.0); MEAN CORPUSCULAR VOLUME 86 fl (80-97); RED BLOOD COUNT 2.81 10^6/uL (3.72-5.28); RED CELL DISTRIBUTION WIDTH 15.4 % (11.5-14.0); WHITE BLOOD COUNT 7.3 10^3/uL (4.0-10.5)
[2019-01-06 12:57] LABS: APPEARANCE,URINE SLIGHTLY-CLOUDY; BILIRUBIN,URINE NEGATIVE (NEGATIVE); COLOR,URINE YELLOW; GLUCOSE, URINE NEGATIVE (NEGATIVE); KETONES,URINE NEGATIVE (NEGATIVE); LEUKOCYTE ESTERASE,URINE SMALL (NEGATIVE); NITRITE,URINE NEGATIVE (NEGATIVE); PROTEIN,URINE >=500 mg/dL (NEGATIVE); URINE SPECIFIC GRAVITY 1.012; UROBILINOGEN,URINE NEGATIVE mg/dL (<2.0)
[2019-01-06 13:04] LABS: ALANINE AMINOTRANSFERASE 43 U/L (9-52); ALBUMIN 3.1 g/dL (3.5-5.0); ALKALINE PHOSPHATASE 42 U/L (38-126); ANION GAP 9 (5-19); ASPARTATE AMINO TRANSFERASE 16 U/L (14-36); BILIRUBIN,DIRECT 0.3 mg/dL (0.0-0.4); BILIRUBIN,TOTAL 0.7 mg/dL (0.2-1.3); BLOOD UREA NITROGEN 64 mg/dL (7-20); CALCIUM 8.8 mg/dL (8.4-10.2); CARBON DIOXIDE 27 mmol/L (22-30); CHLORIDE 99 mmol/L (98-107); GLUCOSE 122 mg/dL (75-110); IRON(TIBC) 99.2 ug/dL (37-170); PHOSPHORUS 3.7 mg/dL (2.5-4.5); PLATELET COUNT 76 10^3/uL (150-450); POTASSIUM 4.3 mmol/L (3.6-5.0); SODIUM 135.4 mmol/L (137-145); TOTAL PROTEIN 5.2 g/dL (6.3-8.2)
[2019-01-06 13:07] LABS: URINE CREATININE 74.6 mg/dL (15-278)
[2019-01-06 13:14] LABS: UR PRO/CREAT RATIO RESULT 4.9 mg/mg (0.0-0.2); URINE PROTEIN 362.2 mg/dL (<12)
[2019-01-06 13:20] LABS: ABSOLUTE LYMPHOCYTES# (MANUAL) 0.2 10^3/uL (0.5-4.7); ABSOLUTE MONOCYTES # (MANUAL) 0.1 10^3/uL (0.1-1.4); ABSOLUTE NEUTROPHILS# (MANUAL) 6.8 10^3/uL (1.7-8.2); ANISOCYTOSIS SLIGHT; BASOPHILS % (MANUAL) 0 % (0-2); EOSINOPHILS % (MANUAL) 2 % (0-6); LYMPHOCYTES % (MANUAL) 3 % (13-45); MONOCYTES % (MANUAL) 2 % (3-13); OVALOCYTES SLIGHT; PLATELET COMMENT DECREASED; POIKILOCYTOSIS SLIGHT; SEGMENTED NEUTROPHILS % (MAN) 93 % (42-78); TOTAL CELLS COUNTED 100
== END ==
LOC: OD 12:03
PROVIDERS: ATTEND Internal Medicine Nephrology
DX: D64.9 Anemia, unspecified (principal); N18.4 Chronic kidney disease, stage 4 (severe); N17.9 Acute kidney failure, unspecified; R80.9 Proteinuria, unspecified
CPT/HCPCS: 36415; 80053; 81001; 82570; 82728; 83540; 83550; 83735; 83970; 84100; 84156; 85025

== ENCOUNTER → 2019-01-22 | Outpatient (CLI) | payer MEDICARE ==
[2019-01-22 12:42] LABS: ALANINE AMINOTRANSFERASE 37 U/L (9-52); ALBUMIN 3.3 g/dL (3.5-5.0); ALKALINE PHOSPHATASE 56 U/L (38-126); ANION GAP 9 (5-19); ASPARTATE AMINO TRANSFERASE 16 U/L (14-36); BILIRUBIN,DIRECT 0.4 mg/dL (0.0-0.4); BILIRUBIN,TOTAL 0.8 mg/dL (0.2-1.3); BLOOD UREA NITROGEN 62 mg/dL (7-20); CALCIUM 9.1 mg/dL (8.4-10.2); CARBON DIOXIDE 24 mmol/L (22-30); CHLORIDE 99 mmol/L (98-107); GLUCOSE 171 mg/dL (75-110); PHOSPHORUS 4.5 mg/dL (2.5-4.5); POTASSIUM 4.6 mmol/L (3.6-5.0); SODIUM 131.6 mmol/L (137-145); TOTAL PROTEIN 5.3 g/dL (6.3-8.2); URIC ACID 13.8 mg/dL (2.5-7.5)
[2019-01-22 14:17] LABS: HEMATOCRIT 23.8 % (36.0-47.0); HEMOGLOBIN 8.4 g/dL (12.0-15.5); MEAN CORPUSCULAR HEMOGLOBIN 32.5 pg (27.0-33.4); MEAN CORPUSCULAR HGB CONC 35.1 g/dL (32.0-36.0); PLATELET COUNT 101 10^3/uL (150-450); RED BLOOD COUNT 2.57 10^6/uL (3.72-5.28); RED CELL DISTRIBUTION WIDTH 23.1 % (11.5-14.0); WHITE BLOOD COUNT 8.7 10^3/uL (4.0-10.5)
[2019-01-22 14:20] LABS: MEAN CORPUSCULAR VOLUME 93 fl (80-97)
[2019-01-22 14:28] LABS: ABSOLUTE LYMPHOCYTES# (MANUAL) 0.3 10^3/uL (0.5-4.7); ABSOLUTE MONOCYTES # (MANUAL) 0.1 10^3/uL (0.1-1.4); ABSOLUTE NEUTROPHILS# (MANUAL) 8.4 10^3/uL (1.7-8.2); BAND NEUTROPHILS % (MANUAL) 5 % (3-5); BASOPHILS % (MANUAL) 0 % (0-2); EOSINOPHILS % (MANUAL) 0 % (0-6); LYMPHOCYTES % (MANUAL) 3 % (13-45); MONOCYTES % (MANUAL) 1 % (3-13); NUCLEATED RED BLOOD CELLS 5 /100 WBC (0); SEGMENTED NEUTROPHILS % (MAN) 91 % (42-78); TOTAL CELLS COUNTED 100
[2019-01-22 14:31] LABS: ANISOCYTOSIS 3+; HYPOCHROMASIA 1+; POLYCHROMASIA 1+
[2019-01-22 14:32] LABS: PLATELET COMMENT DECREASED
[2019-01-23 10:55] LABS: URINE CREATININE 48.6 mg/dL (15-278)
[2019-01-23 10:58] LABS: APPEARANCE,URINE SLIGHTLY-CLOUDY; BILIRUBIN,URINE NEGATIVE (NEGATIVE); COLOR,URINE YELLOW; GLUCOSE, URINE NEGATIVE (NEGATIVE); KETONES,URINE NEGATIVE (NEGATIVE); LEUKOCYTE ESTERASE,URINE MODERATE (NEGATIVE); NITRITE,URINE NEGATIVE (NEGATIVE); PROTEIN,URINE 100 mg/dL (NEGATIVE); URINE SPECIFIC GRAVITY 1.011; UROBILINOGEN,URINE NEGATIVE mg/dL (<2.0)
[2019-01-23 11:14] LABS: UR PRO/CREAT RATIO RESULT 4.8 mg/mg (0.0-0.2); URINE PROTEIN 232.9 mg/dL (<12)
== END ==
LOC: OD 11:42
PROVIDERS: ATTEND Internal Medicine Nephrology
DX: N17.9 Acute kidney failure, unspecified (principal); N18.4 Chronic kidney disease, stage 4 (severe); D63.1 Anemia in chronic kidney disease; N25.0 Renal osteodystrophy; R31.9 Hematuria, unspecified
CPT/HCPCS: 36415; 80053; 81001; 82570; 83735; 83970; 84100; 84156; 84550; 85025

== ENCOUNTER 2019-02-01 07:38 | Inpatient (IN) | payer MEDICARE ==
--- NOTE | 2019-02-01 08:21 | ER Document Report ---
ED General - General Chief Complaint: Abdominal Pain Stated Complaint: WEAKNESS Time Seen by Provider: 02/01/19 07:55 Primary Care Provider: Evelyn FERNANDEZ MD [ACTIVE STAFF] - Follow up as needed TRAVEL OUTSIDE OF THE [place] IN LAST 30 DAYS: No - HPI Notes: Patient is a 78-year-old female that presents to the emergency department for chief complaint of burping and feeling gassy. Patient reports for the last 3 to 4 days she has had gurgling in her stomach and excessive burping. She denies any abdominal pain but states that she feels very gassy. She has had one loose stool today but normal bowel movements previously. She denies any vomiting but does states she occasionally feels nauseated. She reports decreased appetite. She has not had any dysuria but does have urinary frequency which she relates to her Lasix. Patient denies any chest pain or shortness of breath. She denies any associated fevers or chills. Past Medical History: CHF, hypertension, hyperlipidemia, CKD Past Surgical History: Reviewed in chart Social History: Denies alcohol and tobacco Family History: Reviewed and noncontributory for presenting illness Allergies: Reviewed, see documented allergy list. REVIEW OF SYSTEMS: CONSTITUTIONAL : No fever No chills No diaphoresis No recent illness EENT: No vision changes No congestion No sore throat CARDIOVASCULAR: No chest pain No palpitations RESPIRATORY: No shortness of breath No cough No difficulty breathing GASTROINTESTINAL: No abdominal pain nausea No vomiting diarrhea GENITOURINARY: No dysuria No hematuria No difficulty urinating MUSCULOSKELETAL: No back pain No leg pain No arm pain SKIN: No rashes No lesions LYMPHATIC: No swollen, enlarged glands. NEUROLOGICAL: No lightheadedness No headache No weakness No paresthesias PSYCHIATRIC: No anxiety No depression PHYSICAL EXAMINATION: Vital signs reviewed, nursing noted reviewed. GENERAL: Well-appearing, well-nourished and in no acute distress. HEAD: Atraumatic, normocephalic. EYES: Eyes appear normal, extraocular movements intact, sclera anicteric, conjunctiva are normal. ENT: No facial bone tenderness, nares patent, oropharynx clear without exudates. Moist mucous membranes. NECK: Normal range of motion, supple without lymphadenopathy LUNGS: Breath sounds clear to auscultation bilaterally and equal. No wheezes rales or rhonchi. HEART: Regular rate and rhythm without murmurs ABDOMEN: Soft, nontender, normoactive bowel sounds. No rebound, guarding, or rigidity. No masses appreciated. EXTREMITIES: Nontender, good range of motion, +2 pitting edema bilateral lower extremities NEUROLOGICAL: No focal neurological deficits. Moves all extremities spontaneously Motor and sensory grossly intact on exam. PSYCH: Normal mood, normal affect. SKIN: Warm, Dry, normal turgor, nonblanching erythematous petechial rash to left lower extremity medially extending just proximal to the left knee, nontender to palpation. Ecchymosis to right cheek - Related Data Allergies/Adverse Reactions: codeine Allergy (Unknown, Verified 02/01/19 07:51) Sulfa (Sulfonamide Antibiotics) Allergy (Unknown, Verified 02/01/19 07:51) Past Medical History - Social History Smoking Status: Unknown if Ever Smoked Chew tobacco use (# tins/day): No Frequency of alcohol use: None Drug Abuse: None Family History: Reviewed & Not Pertinent, CVA, DM, Malignancy Patient has suicidal ideation: No Patient has homicidal ideation: No - Past Medical History Cardiac Medical History: Reports: Hx Atrial Fibrillation, Hx Congestive Heart Failure, Hx Hypercholesterolemia, Hx Hypertension Denies: Hx Coronary Artery Disease Renal/ Medical History: Denies: Hx Peritoneal Dialysis GI Medical History: Reports: Hx Gastroesophageal Reflux Disease Past Surgical History: Reports: Hx Cholecystectomy, Hx Hysterectomy, Hx Orthopedic Surgery - Carpal Tunnel Physical Exam - Vital signs Vitals: Pulse Ox 97 02/01/19 07:39 Course - Re-evaluation Re-evalutation: 02/01/19 08:20 Vitals reviewed. Nursing notes reviewed. Patient is mildly tachycardic at presentation. She has had poor oral intake because of feeling nauseated and gassy. Patient was started on IV fluids. She does have ecchymosis to her right cheek which she now states was from a fall about a month ago. She has no tenderness to palpation over this region to suggest further imaging is necessary. Patient does also have a petechial rash on her left lower extremity which she states has been there for 2 to 3 weeks and is being followed by Dr. Fernandez. 02/01/19 11:38 Patient's heart rate has improved some with IV fluids. Her chest x-ray shows ri ght upper and lower lobe pneumonia. She also has a mild urinary tract infection. Patient's family is now present at bedside and states that she has been on Cipro for the last 2 days for acute UTI. She has received azithromycin and Rocephin in the emergency room. Patient has no leukocytosis. She is anemic which is baseline for her. Her troponin is indeterminate but also around her baseline. Patient has renal insufficiency that is baseline with no acute hyperkalemia. On reevaluation patient still does not appear well. She will be admitted to the hospital for IV antibiotics and close monitoring. Patient's family is in agreement with this plan of care and suggesting a stay in rehab aft er discharge for her recent functional decline. Patient in agreement with plan of care. Care discussed with Dinora Peters who is accepted admission Laboratory 02/01/19 02/01/19 02/01/19 08:10 08:10 08:10 WBC Cancelled RBC Cancelled Hgb Cancelled Hct Cancelled MCV Cancelled MCH Cancelled MCHC Cancelled RDW Cancelled Plt Count Cancelled Total Counted Seg Neutrophils % Cancelled Seg Neuts % (Manual) Lymphocytes % Cancelled Lymphocytes % (Manual) Monocytes % Cancelled Monocytes % (Manual) Eosinophils % Cancelled Eosinophils % (Manual) Basophils % Cancelled Basophils % (Manual) Absolute Neutrophils Cancelled Abs Neuts (Manual) Absolute Lymphocytes Cancelled Abs Lymphs (Manual) Absolute Monocytes Cancelled Abs Monocytes (Manual) Absolute Eosinophils Cancelled Absolute Eos (Manual) Absolute Basophils Cancelled Abs Basophils (Manual) Nucleated RBCs Smudge Cells Toxic Granulation Platelet Estimate Cancelled Platelet Comment Polychromasia Poikilocytosis Anisocytosis Ovalocytes Sodium 134.3 L Potassium 4.2 Chloride 99 Carbon Dioxide 23 Anion Gap 12 BUN 62 H Creatinine 2.41 H Est GFR ( Amer) 24 L Est GFR (Non-Af Amer) 19 L Glucose 124 H Calcium 9.1 Total Bilirubin 0.8 Direct Bilirubin 0.4 Neonat Total Bilirubin Not Reportable Neonat Direct Bilirubin Not Reportable Neonat Indirect Bili Not Reportable AST 16 ALT 34 Alkaline Phosphatase 54 Troponin I 0.051 Total Protein 5.6 L Albumin 3.2 L Lipase 115.8 Urine Color Urine Appearance Urine pH Ur Specific [place] Urine Protein Urine Glucose (UA) Urine Ketones Urine Blood Urine Nitrite Urine Bilirubin Urine Urobilinogen Ur Leukocyte Esterase Urine WBC (Auto) Urine RBC (Auto) Squamous Epi Cells Auto Urine Mucus (Auto) Urine Ascorbic Acid Slides for Path Review Cancelled 02/01/19 02/01/19 09:05 10:13 WBC 5.7 RBC 2.45 L Hgb 8.1 L Hct 23.5 L MCV 96 MCH 33.0 MCHC 34.4 RDW 24.6 H Plt Count 106 L Total Counted 100 Seg Neutrophils % Not Reportable Seg Neuts % (Manual) 94 H Lymphocytes % Not Reportable Lymphocytes % (Manual) 4 L Monocytes % Not Reportable Monocytes % (Manual) 2 L Eosinophils % Not Reportable Eosinophils % (Manual) 0 Basophils % Not Reportable Basophils % (Manual) 0 Absolute Neutrophils Not Reportable Abs Neuts (Manual) 5.4 Absolute Lymphocytes Not Reportable Abs Lymphs (Manual) 0.2 L Absolute Monocytes Not Reportable Abs Monocytes (Manual) 0.1 Absolute Eosinophils Not Reportable Absolute Eos (Manual) 0.0 Absolute Basophils Not Reportable Abs Basophils (Manual) 0.0 Nucleated RBCs 6 Smudge Cells PRESENT Toxic Granulation SLIGHT Platelet Estimate Platelet Comment DECREASED Polychromasia SLIGHT Poikilocytosis 1+ Anisocytosis 3+ Ovalocytes 1+ Sodium Potassium Chloride Carbon Dioxide Anion Gap BUN Creatinine Est GFR ( Amer) Est GFR (Non-Af Amer) Glucose Calcium Total Bilirubin Direct Bilirubin Neonat Total Bilirubin Neonat Direct Bilirubin Neonat Indirect Bili AST ALT Alkaline Phosphatase Troponin I Total Protein Albumin Lipase Urine Color YELLOW Urine Appearance CLEAR Urine pH 5.0 Ur Specific [place] 1.012 Urine Protein 100 H Urine Glucose (UA) NEGATIVE Urine Ketones NEGATIVE Urine Blood SMALL H Urine Nitrite NEGATIVE Urine Bilirubin NEGATIVE Urine Urobilinogen NEGATIVE Ur Leukocyte Esterase SMALL H Urine WBC (Auto) 21 Urine RBC (Auto) 3 Squamous Epi Cells Auto <1 Urine Mucus (Auto) RARE Urine Ascorbic Acid NEGATIVE Slides for Path Review Chest X-Ray 02/01/19 07:55 IMPRESSION: Right upper and lower lobe pneumonia. - Vital Signs Vital signs: Temp Pulse Resp BP Pulse Ox 97.7 F 18 164/101 H 92 02/01/19 07:52 02/01/19 09:01 02/01/19 09:01 02/01/19 09:01 - Laboratory Result Diagrams: 02/01/19 10:13 02/01/19 08:10 Laboratory results interpreted by me: 02/01/19 02/01/19 02/01/19 08:10 09:05 10:13 RBC 2.45 L Hgb 8.1 L Hct 23.5 L RDW 24.6 H Plt Count 106 L Seg Neuts % (Manual) 94 H Lymphocytes % (Manual) 4 L Monocytes % (Manual) 2 L Abs Lymphs (Manual) 0.2 L Sodium 134.3 L BUN 62 H Creatinine 2.41 H Est GFR ( Amer) 24 L Est GFR (Non-Af Amer) 19 L Glucose 124 H Total Protein 5.6 L Albumin 3.2 L Urine Protein 100 H Urine Blood SMALL H Ur Leukocyte Esterase SMALL H Discharge - Discharge Clinical Impression: Tachycardia Pneumonia involving right lung Qualifiers: Pneumonia type: due to unspecified organism Lung location: upper lobe of lung Qualified Code(s): J18.1 - Lobar pneumonia, unspecified organism Urinary tract infection Qualifiers: Urinary tract infection type: site unspecified Hematuria presence: without hematuria Qualified Code(s): N39.0 - Urinary tract infection, site not specified Condition: Stable Disposition: ADMITTED INPATIENT Admitting Provider: Dinora Peters Unit Admitted: Telemetry Referrals: Evelyn FERNANDEZ MD [ACTIVE STAFF] - Follow up as needed
--- NOTE | 2019-02-01 08:38 | EKG REPORT ---
SEVERITY:- ABNORMAL ECG - ATRIAL FIBRILLATION, V-RATE 79-129 NONSPECIFIC REPOL ABNORMALITY, DIFFUSE LEADS : Confirmed by: Kael Garcia MD 01-Feb-2019 08:37:27
[2019-02-01 08:48] LABS: ALANINE AMINOTRANSFERASE 34 U/L (9-52); ALBUMIN 3.2 g/dL (3.5-5.0); ALKALINE PHOSPHATASE 54 U/L (38-126); ANION GAP 12 (5-19); ASPARTATE AMINO TRANSFERASE 16 U/L (14-36); BILIRUBIN,DIRECT 0.4 mg/dL (0.0-0.4); BILIRUBIN,TOTAL 0.8 mg/dL (0.2-1.3); BLOOD UREA NITROGEN 62 mg/dL (7-20); CALCIUM 9.1 mg/dL (8.4-10.2); CARBON DIOXIDE 23 mmol/L (22-30); CHLORIDE 99 mmol/L (98-107); GLUCOSE 124 mg/dL (75-110); LIPASE 115.8 U/L (23-300); POTASSIUM 4.2 mmol/L (3.6-5.0); SODIUM 134.3 mmol/L (137-145); TOTAL PROTEIN 5.6 g/dL (6.3-8.2)
--- NOTE | 2019-02-01 09:00 | RADIOLOGY REPORT (SQ) ---
EXAM DESCRIPTION: CHEST SINGLE VIEW COMPLETED DATE/TIME: 02/01/2019 8:40 am REASON FOR STUDY: vomiting COMPARISON: 12/29/2018 NUMBER OF VIEWS: One view. TECHNIQUE: Single frontal radiographic view of the chest acquired. LIMITATIONS: None. FINDINGS: LUNGS AND PLEURA: Airspace disease with air bronchograms in the right lung. Left lung is clear. MEDIASTINUM AND HILAR STRUCTURES: No masses. Contour normal. HEART AND VASCULAR STRUCTURES: Heart enlarged without failure. Normal vasculature. BONES: No acute findings. HARDWARE: None in the chest. OTHER: No other significant finding. IMPRESSION: Right upper and lower lobe pneumonia. TECHNICAL DOCUMENTATION: JOB ID: [id number] [employer]- All Rights Reserved Reading location - IP/workstation name: [email or web address]
[2019-02-01 09:27] LABS: APPEARANCE,URINE CLEAR; BILIRUBIN,URINE NEGATIVE (NEGATIVE); COLOR,URINE YELLOW; GLUCOSE, URINE NEGATIVE (NEGATIVE); KETONES,URINE NEGATIVE (NEGATIVE); LEUKOCYTE ESTERASE,URINE SMALL (NEGATIVE); NITRITE,URINE NEGATIVE (NEGATIVE); PROTEIN,URINE 100 mg/dL (NEGATIVE); URINE SPECIFIC GRAVITY 1.012; UROBILINOGEN,URINE NEGATIVE mg/dL (<2.0)
[2019-02-01] MEDS ORDERED: CEFTRIAXONE INJ 1000 MG VIAL IV ONE (09:49)
[2019-02-01] MEDS ORDERED: AZITHROMYCIN INJ 500 MG VIAL IV ONE (10:18)
[2019-02-01] MEDS ORDERED: NORMAL SALINE 1000 ML 1,000 ML IV ONE (10:19)
[2019-02-01 10:31] LABS: HEMATOCRIT 23.5 % (36.0-47.0); HEMOGLOBIN 8.1 g/dL (12.0-15.5); MEAN CORPUSCULAR HGB CONC 34.4 g/dL (32.0-36.0); MEAN CORPUSCULAR VOLUME 96 fl (80-97); PLATELET COUNT 106 10^3/uL (150-450); RED BLOOD COUNT 2.45 10^6/uL (3.72-5.28); RED CELL DISTRIBUTION WIDTH 24.6 % (11.5-14.0); WHITE BLOOD COUNT 5.7 10^3/uL (4.0-10.5)
[2019-02-01 10:54] LABS: ABSOLUTE LYMPHOCYTES# (MANUAL) 0.2 10^3/uL (0.5-4.7); ABSOLUTE MONOCYTES # (MANUAL) 0.1 10^3/uL (0.1-1.4); ABSOLUTE NEUTROPHILS# (MANUAL) 5.4 10^3/uL (1.7-8.2); BASOPHILS % (MANUAL) 0 % (0-2); EOSINOPHILS % (MANUAL) 0 % (0-6); LYMPHOCYTES % (MANUAL) 4 % (13-45); MONOCYTES % (MANUAL) 2 % (3-13); NUCLEATED RED BLOOD CELLS 6 /100 WBC (0); SEGMENTED NEUTROPHILS % (MAN) 94 % (42-78); TOTAL CELLS COUNTED 100
[2019-02-01 10:57] LABS: ANISOCYTOSIS 3+; POLYCHROMASIA SLIGHT; SMUDGE CELLS PRESENT; TOXIC GRANULATION SLIGHT
[2019-02-01 10:58] LABS: OVALOCYTES 1+; PLATELET COMMENT DECREASED; POIKILOCYTOSIS 1+
[2019-02-01] MEDS ORDERED: ALPRAZOLAM 0.25 MG TABLET PO PRN (11:57)
[2019-02-01] MEDS ORDERED: ALBUTEROL SULFATE 0.083% NEB 2.5 MG/3 ML AMPUL NEB PRN (11:58)
[2019-02-01] MEDS ORDERED: ACETAMINOPHEN 325 MG TABLET PO PRN (11:58)
[2019-02-01] MEDS ORDERED: GUAIFENESIN SYRP 200 MG/10 ML UDC PO PRN (11:58)
--- NOTE | 2019-02-01 12:54 | PDOC H&P ---
History of Present Illness Admission Date/PCP: 02/01/19 11:49 Patient complains of: weakness History of Present Illness: LAYA BRIGHT is a 78 year old female with a PMH significant for hypertension, atrial fibrillation, recent diagnosis of nephrotic syndrome, obesity and anxiety who presented to the emergency department today with complaint of generalized we akness and multiple falls. Evaluation in the emergency department revealed a right upper lobe and lower lobe pneumonia with UTI. She was found to have hemoglobin of 8.1 (at baseline), creatinine of 2.41 and BUN of 62 (unchanged as compared to recent outpatient labs), indeterminately elevated troponin of 0.05, EKG confirms atrial fibrillation. She was empirically placed on IV Rocephin and azithromycin and referred to the hospitalist service for admission and management of the above-stated complaints and findings. Past Medical History Cardiac Medical History: Reports: Atrial Fibrillation, Congestive Heart Failure, Hyperlipidema, Hypertension Denies: Coronary Artery Disease Neurological Medical History: Reports: None Endocrine Medical History: Reports: Obesity Renal/ Medical History: Reports: Other - Nephrotic syndrome Malignancy Medical History: Reports: None GI Medical History: Reports: Gastroesophageal Reflux Disease Musculoskeltal Medical History: Reports: Arthritis Psychiatric Medical History: Reports: General Anxiety Disorder Traumatic Medical History: Reports: None Hematology: Reports: Anemia Infectious Medical History: Reports: None Past Surgical History Past Surgical History: Reports: Cholecystectomy, Hysterectomy, Orthopedic Surgery - Carpal Tunnel Social History Information Source: Patient Lives with: Alone Smoking Status: Unknown if Ever Smoked Frequency of Alcohol Use: None Hx Recreational Drug Use: No Drugs: None Hx Prescription Drug Abuse: No - Advance Directive Resuscitation Status: Full Code Family History Family History: Reviewed & Not Pertinent, CVA, DM, Malignancy Parental Family History Reviewed: Yes Children Family History Reviewed: Yes Sibling(s) Family History Reviewed.: Yes Medication/Allergy Home Medications: Ascorbic Acid [Vitamin C] 1,000 mg PO DAILY 12/29/18 Calcitriol [Rocaltrol 0.5 mcg Capsule] 0.5 mcg PO QHS 12/29/18 Cholecalciferol (Vitamin D3) [Vitamin D3 1000 Unit Tablet] 1,000 unit PO DAILY 12/29/18 Magnesium Oxide [Magnesium] 500 mg PO DAILY 12/29/18 Nystatin [Mycostatin 003792 Unit/1 ml Susp 60 ml Btl] 500,000 unit PO QID 12/29/18 Pantoprazole Sodium [Protonix [address] Tablet] 40 mg PO QAM 12/29/18 Pravastatin Sodium [Pravachol] 40 mg PO QPM 12/29/18 Prednisone [Deltasone 20 mg Tablet] 30 mg PO DAILY 12/29/18 Ubidecarenone/Vit E Acet [Co Q-10 100 mg Softgel] 1 cap PO QHS 12/29/18 l Gasseri/B Bifidum/B Longum [[facility] Capsule] 1 cap PO DAILY 12/29/18 Acetaminophen [Tylenol 325 mg Tablet] 650 mg PO Q4HP PRN tablet 01/01/19 Alprazolam [Xanax 0.25 mg Tablet] 0.25 mg PO Q8HP PRN #0 tablet 01/01/19 Buspirone HCl [Buspar 10 mg Tablet] 10 mg PO ASDIR PRN #45 tablet 01/01/19 Nystatin [Mycostatin Topical Powder 15 gm] 1 applic TP BID #1 bottle 01/01/19 Ciprofloxacin HCl [Cipro 500 mg Tablet] 500 mg PO BID 02/01/19 Furosemide [Lasix] 40 mg PO ASDIR PRN 02/01/19 Metolazone [Zaroxolyn 5 Mg Tablet] 5 mg PO ASDIR 02/01/19 Metoprolol Succinate 100 mg PO BID 02/01/19 Nystatin [Mycostatin 418907 Unit/mL Susp 60 mL] 5 ml PO QID 02/01/19 Allergies/Adverse Reactions: codeine Allergy (Unknown, Verified 02/01/19 07:51) Sulfa (Sulfonamide Antibiotics) Allergy (Unknown, Verified 02/01/19 07:51) Review of Systems Constitutional: PRESENT: fatigue, weakness. ABSENT: chills, fever(s), headache(s), weight gain, weight loss Eyes: ABSENT: visual disturbances Ears: ABSENT: hearing changes Nose, Mouth, and Throat: PRESENT: headache(s), mouth pain, sore throat Cardiovascular: ABSENT: chest pain, dyspnea on exertion, edema, orthropnea, palpitations Respiratory: PRESENT: dyspnea. ABSENT: cough, hemoptysis Gastrointestinal: ABSENT: abdominal pain, constipation, diarrhea, hematemesis, hematochezia, nausea, vomiting Genitourinary: ABSENT: dysuria, hematuria Musculoskeletal: ABSENT: joint swelling Integumentary: PRESENT: other - Scattered ecchymosis. ABSENT: rash, wounds Neurological: PRESENT: frequent falls. ABSENT: abnormal gait, abnormal speech, confusion, dizziness, focal weakness, syncope Psychiatric: PRESENT: anxiety. ABSENT: depression, homidical ideation, suicidal ideation Endocrine: ABSENT: cold intolerance, heat intolerance, polydipsia, polyuria Hematologic/Lymphatic: ABSENT: easy bleeding, easy bruising Physical Exam Vital Signs: Temp Pulse Resp BP Pulse Ox 97.9 F 18 164/101 H 92 02/01/19 11:51 02/01/19 09:01 02/01/19 09:01 02/01/19 09:01 Intake & Output 01/31/19 02/01/19 02/02/19 06:59 06:59 06:59 Weight 86.9 kg General appearance: PRESENT: cooperative, disheveled, mild distress, obese, well-developed, well-nourished Head exam: PRESENT: normocephalic, other - Ecchymosis to right cheek/periorbital Eye exam: PRESENT: conjunctiva pink, EOMI, PERRLA. ABSENT: scleral icterus Ear exam: PRESENT: normal external ear exam Mouth exam: PRESENT: moist, tongue midline, other - Thrush, fever blister lower lip Neck exam: ABSENT: carotid bruit, JVD, lymphadenopathy, thyromegaly Respiratory exam: PRESENT: decreased breath sounds - Bibasilar, symmetrical, unlabored. ABSENT: rales, wheezes Cardiovascular exam: PRESENT: irregular rhythm, +S1, +S2. ABSENT: diastolic murmur, rubs, systolic murmur Pulses: PRESENT: normal dorsalis pedis pul Vascular exam: PRESENT: normal capillary refill GI/Abdominal exam: PRESENT: normal bowel sounds, soft. ABSENT: distended, guarding, mass, organolmegaly, rebound, tenderness Rectal exam: PRESENT: deferred Extremities exam: PRESENT: full ROM, pedal edema - +2 bilaterally, +1 edema - BLE extending to knees. ABSENT: calf tenderness, clubbing Neurological exam: PRESENT: alert, awake, oriented to person, oriented to place, oriented to time, oriented to situation, CN II-XII grossly intact. ABSENT: motor sensory deficit Psychiatric exam: PRESENT: anxious, appropriate affect, normal mood. ABSENT: homicidal ideation, suicidal ideation Skin exam: PRESENT: dry, intact, pallor, petechiae - Left lower extremity; patient reports related to fall, warm. ABSENT: cyanosis, rash Results Laboratory Results: 02/01/19 10:13 02/01/19 08:10 02/01/19 02/01/19 02/01/19 08:10 08:10 09:05 WBC Cancelled RBC Cancelled Hgb Cancelled Hct Cancelled MCV Cancelled MCH Cancelled MCHC Cancelled RDW Cancelled Plt Count Cancelled Seg Neutrophils % Cancelled Lymphocytes % Cancelled Monocytes % Cancelled Eosinophils % Cancelled Basophils % Cancelled Absolute Neutrophils Cancelled Absolute Lymphocytes Cancelled Absolute Monocytes Cancelled Absolute Eosinophils Cancelled Absolute Basophils Cancelled Sodium 134.3 L Potassium 4.2 Chloride 99 Carbon Dioxide 23 Anion Gap 12 BUN 62 H Creatinine 2.41 H Est GFR ( Amer) 24 L Est GFR (Non-Af Amer) 19 L Glucose 124 H Calcium 9.1 Total Bilirubin 0.8 AST 16 ALT 34 Alkaline Phosphatase 54 Total Protein 5.6 L Albumin 3.2 L Lipase 115.8 Urine Color YELLOW Urine Appearance CLEAR Urine pH 5.0 Ur Specific [place] 1.012 Urine Protein 100 H Urine Glucose (UA) NEGATIVE Urine Ketones NEGATIVE Urine Blood SMALL H Urine Nitrite NEGATIVE Ur Leukocyte Esterase SMALL H Urine WBC (Auto) 21 Urine RBC (Auto) 3 02/01/19 10:13 WBC 5.7 RBC 2.45 L Hgb 8.1 L Hct 23.5 L MCV 96 MCH 33.0 MCHC 34.4 RDW 24.6 H Plt Count 106 L Seg Neutrophils % Not Reportable Lymphocytes % Not Reportable Monocytes % Not Reportable Eosinophils % Not Reportable Basophils % Not Reportable Absolute Neutrophils Not Reportable Absolute Lymphocytes Not Reportable Absolute Monocytes Not Reportable Absolute Eosinophils Not Reportable Absolute Basophils Not Reportable Sodium Potassium Chloride Carbon Dioxide Anion Gap BUN Creatinine Est GFR ( Amer) Est GFR (Non-Af Amer) Glucose Calcium Total Bilirubin AST ALT Alkaline Phosphatase Total Protein Albumin Lipase Urine Color Urine Appearance Urine pH Ur Specific [place] Urine Protein Urine Glucose (UA) Urine Ketones Urine Blood Urine Nitrite Ur Leukocyte Esterase Urine WBC (Auto) Urine RBC (Auto) 02/01/19 08:10 Troponin I 0.051 Impressions: Chest X-Ray 02/01/19 07:55 IMPRESSION: Right upper and lower lobe pneumonia. Assessment and Plan - Diagnosis (1) Pneumonia involving right lung Qualifiers: Pneumonia type: due to unspecified organism Lung location: unspecified part of lung Qualified Code(s): J18.9 - Pneumonia, unspecified organism Is this a current diagnosis for this admission?: Yes Plan: Chest x-ray reveals right upper and right lower lobe pneumonia. Blood cultures are pending. Sputum cultures pending. Patient is admitted to the medical floor on continuous cardiac telemetry. She is empirically placed on IV Rocephin and azithromycin. She will be provided supplemental oxygen as needed to maintain oxygen saturations. She is provided scheduled and as needed nebulizer treatments. Start Mucinex twice daily. Incentive spirometer and flutter valve to bedside. (2) Urinary tract infection Qualifiers: Urinary tract infection type: site unspecified Hematuria presence: without hematuria Qualified Code(s): N39.0 - Urinary tract infection, site not specified Is this a current diagnosis for this admission?: Yes Plan: Patient is received 2 days of outpatient treatment for UTI with ciprofloxacin. Urine culture pending. She is empirically placed on IV azithromycin and Rocephin for concurrent treatment of pneumonia. Will adjust as cultures result. (3) Afib Qualifiers: Atrial fibrillation type: unspecified Qualified Code(s): I48.91 - Unspecified atrial fibrillation Is this a current diagnosis for this admission?: Yes Plan: Patient is rate controlled in atrial fibrillation She is not chronically anticoagulated secondary to anemia and ongoing treatment for recently diagnosed nephrotic syndrome. Continue home dose Toprol. (4) Anxiety Is this a current diagnosis for this admission?: Yes Plan: Continue home dose scheduled BuSpar; 5 mg every morning and 10 mg nightly. Xanax every 8 hours as needed. (5) Nephrotic syndrome Is this a current diagnosis for this admission?: Yes Plan: Secondary to microscopic polyangiitis. Followed by Dr. Fernandez. Creatinine and BUN appear relatively stable compared to outpatient labs and recent admission early December. We will continue home dose prednisone and Calcitrol. Continue home dose of furosemide. Avoid nephrotoxic medications as able. Monitor daily chemistries. Consider nephrology consultation. (6) Obesity Qualifiers: Body mass index: BMI 33.0-33.9 Is this a current diagnosis for this admission?: Yes Plan: Dietary discretion is advised. Patient was placed on cardiac diet. (7) Frequent falls Is this a current diagnosis for this admission?: Yes Plan: Family reports patient is already receiving home health nursing and physical therapy service; now requesting SNF for short-term rehab. Fall precautions. Discharge planning is consulted - Time Time Spent with patient: 35 or more minutes - Inpatient Certification Based on my medical assessment, after consideration of the patient's comorbidities, presenting symptoms, or acuity I expect that the services needed warrant INPATIENT care.: Yes I certify that my determination is in accordance with my understanding of Medicare's requirements for reasonable and necessary INPATIENT services [42 CFR 412.3e].: Yes Medical Necessity: Failure to Improve With Outpatient Therapy, Need for Nebulizer Therapy and Monitoring of Response, Need for IV Antibiotics
[2019-02-01] MEDS ORDERED: NYSTATIN 500000 UNIT PO SCH (14:00)
[2019-02-01] MEDS: HEPARIN SOD (PORCINE) 5,000 UNIT/ML 1 ML SYRINGE SUBCUT SCH ×2 (14:39→22:05)
[2019-02-01 14:50] LABS: INTERNATIONAL RATION (INR) 1.15; PROTHROMBIN TIME 15.3 SEC (11.4-15.4)
[2019-02-01] MEDS: IPRATROPIUM/ALBUTEROL 0.5-2.5 MG/3 ML AMPUL NEB SCH ×2 (16:36→23:55)
[2019-02-01] MEDS ORDERED: (PENDING PHARMACY ID) (Metoprolol Succinate [Metoprolol Succinate] 100 MG) PO SCH (18:00)
[2019-02-01] MEDS ORDERED: (PENDING PHARMACY ID) (Pravastatin Sodium [Pravachol] 40 MG) PO SCH (18:00)
[2019-02-01] MEDS: METOPROLOL SUCCINATE 50 MG TAB.SR.24H PO SCH (18:13)
[2019-02-01] MEDS: NYSTATIN 500000 UNIT/5 ML UDCUP PO SCH ×2 (18:13→22:05)
[2019-02-01] MEDS: NYSTATIN TOPICAL POWDER 15 GM TP SCH (18:13)
[2019-02-01] MEDS: ACYCLOVIR 800 MG TABLET PO SCH (18:13)
[2019-02-01] MEDS: NORMAL SALINE 1000 ML 1,000 ML IV PRN (20:54)
[2019-02-01] MEDS ORDERED: (PENDING PHARMACY ID) (Calcitriol [Rocaltrol 0.5 Mcg Capsule] 0.5 MCG) PO SCH (22:00)
[2019-02-01] MEDS: ATORVASTATIN CALCIUM 10 MG TABLET PO SCH (22:05)
[2019-02-01] MEDS: GUAIFENESIN 600 MG TABLET.SA PO SCH (22:05)
[2019-02-01] MEDS: CALCITRIOL 0.25 MCG CAPSULE PO SCH (22:05)
[2019-02-02] MEDS: HEPARIN SOD (PORCINE) 5,000 UNIT/ML 1 ML SYRINGE SUBCUT SCH (05:48)
[2019-02-02 06:18] LABS: HEMATOCRIT 21.3 % (36.0-47.0); MEAN CORPUSCULAR HEMOGLOBIN 33.5 pg (27.0-33.4); MEAN CORPUSCULAR HGB CONC 34.7 g/dL (32.0-36.0); MEAN CORPUSCULAR VOLUME 97 fl (80-97); RED BLOOD COUNT 2.21 10^6/uL (3.72-5.28); RED CELL DISTRIBUTION WIDTH 24.8 % (11.5-14.0); WHITE BLOOD COUNT 5.5 10^3/uL (4.0-10.5)
[2019-02-02 06:19] LABS: HEMOGLOBIN 7.4 g/dL (12.0-15.5)
[2019-02-02 06:33] LABS: ANION GAP 10 (5-19); BLOOD UREA NITROGEN 52 mg/dL (7-20); CALCIUM 8.3 mg/dL (8.4-10.2); CARBON DIOXIDE 22 mmol/L (22-30); CHLORIDE 104 mmol/L (98-107); GLUCOSE 131 mg/dL (75-110); POTASSIUM 3.5 mmol/L (3.6-5.0)
[2019-02-02 08:19] LABS: ABSOLUTE LYMPHOCYTES# (MANUAL) 0.3 10^3/uL (0.5-4.7); ABSOLUTE MONOCYTES # (MANUAL) 0.1 10^3/uL (0.1-1.4); ABSOLUTE NEUTROPHILS# (MANUAL) 5.1 10^3/uL (1.7-8.2); BAND NEUTROPHILS % (MANUAL) 3 % (3-5); BASOPHILS % (MANUAL) 0 % (0-2); EOSINOPHILS % (MANUAL) 0 % (0-6); LYMPHOCYTES % (MANUAL) 5 % (13-45); METAMYELOCYTES % (MANUAL) 1 % (0); MONOCYTES % (MANUAL) 1 % (3-13); NUCLEATED RED BLOOD CELLS 4 /100 WBC (0); SEGMENTED NEUTROPHILS % (MAN) 89 % (42-78); TOTAL CELLS COUNTED 100
[2019-02-02 08:22] LABS: ANISOCYTOSIS 3+; OVALOCYTES 1+; PLATELET COMMENT DECREASED; PLATELET COUNT 91 10^3/uL (150-450); POIKILOCYTOSIS 1+; POLYCHROMASIA 1+
[2019-02-02] MEDS ORDERED: NORMAL SALINE 250 ML IV PRN ×2 (08:22)
[2019-02-02] MEDS: PANTOPRAZOLE SODIUM 40 MG TABLET.DR PO SCH (08:23)
[2019-02-02] MEDS: IPRATROPIUM/ALBUTEROL 0.5-2.5 MG/3 ML AMPUL NEB SCH ×3 (08:54→22:01)
[2019-02-02] MEDS ORDERED: (PENDING PHARMACY ID) (Magnesium Oxide [Magnesium] 500 MG) PO SCH (10:00)
[2019-02-02] MEDS ORDERED: FUROSEMIDE 20 MG TABLET PO SCH (10:00)
[2019-02-02] MEDS ORDERED: AZITHROMYCIN 500 MG in DEXTROSE 5%-WATER 250 ML IV SCH (10:00)
[2019-02-02] MEDS ORDERED: CEFTRIAXONE 1 GM/D5W RTU 50 ML IV SCH (10:00)
[2019-02-02] MEDS: GUAIFENESIN 600 MG TABLET.SA PO SCH ×2 (10:48→22:56)
[2019-02-02] MEDS: PREDNISONE 20 MG TABLET PO SCH (10:48)
[2019-02-02] MEDS: MAGNESIUM OXIDE 400 MG TABLET PO SCH (10:48)
[2019-02-02] MEDS: NYSTATIN 500000 UNIT/5 ML UDCUP PO SCH ×4 (10:48→22:56)
[2019-02-02] MEDS: METOPROLOL SUCCINATE 50 MG TAB.SR.24H PO SCH ×2 (10:48→17:47)
[2019-02-02] MEDS: NORMAL SALINE 1000 ML 1,000 ML IV PRN (10:49)
[2019-02-02] MEDS: FUROSEMIDE 40 MG TABLET PO SCH (10:49)
[2019-02-02] MEDS: ACYCLOVIR 800 MG TABLET PO SCH ×3 (10:51→17:47)
[2019-02-02] MEDS: NYSTATIN TOPICAL POWDER 15 GM TP SCH ×2 (10:53→17:47)
--- NOTE | 2019-02-02 11:01 | RADIOLOGY REPORT (SQ) ---
EXAM DESCRIPTION: CHEST SINGLE VIEW COMPLETED DATE/TIME: 02/02/2019 10:47 am REASON FOR STUDY: Rt PNA; worsened hypoxia,tachycardia,tachypnea COMPARISON: 02/01/2019. EXAM PARAMETERS: NUMBER OF VIEWS: One view. TECHNIQUE: Single frontal radiographic view of the chest acquired. RADIATION DOSE: NA LIMITATIONS: None. FINDINGS: LUNGS AND PLEURA: Bilateral airspace disease which has worsened. Possible left pleural ef fusion. MEDIASTINUM AND HILAR STRUCTURES: No masses. Contour normal. HEART AND VASCULAR STRUCTURES: Heart normal in size. Normal vasculature. BONES: No acute findings. HARDWARE: None in the chest. OTHER: No other significant finding. IMPRESSION: WORSENING BILATERAL INFILTRATES. POSSIBLE LEFT PLEURAL EFFUSION. TECHNICAL DOCUMENTATION: JOB ID: [id number] [employer]- All Rights Reserved Reading location - IP/workstation name: [email or web address]
[2019-02-02] MEDS ORDERED: VANCOMYCIN HCL 0 MG in DEXTROSE 5%-WATER 250 ML IV NR (11:30)
[2019-02-02] MEDS ORDERED: CEFTRIAXONE SODIUM 1,000 MG in DEXTROSE 5%-WATER 50 ML IV SCH (12:00)
[2019-02-02 12:31] LABS: ARTERIAL BLOOD BASE EXCESS -3.1 mmol/L; ARTERIAL BLOOD H2CO3 0.81 mmol/L (1.05-1.35); ARTERIAL BLOOD HCO3 19.3 mmol/L (20-24); ARTERIAL BLOOD O2 SATURATION 96.1 % (94-98); ARTERIAL BLOOD PCO2 26.8 mmHg (35-45); ARTERIAL BLOOD PH 7.48 (7.35-7.45); ARTERIAL BLOOD PO2 74.8 mmHg (80-100); ARTERIAL BLOOD TOTAL CO2 20.1 mmol/L (21-25)
[2019-02-02 12:33] LABS: ARTERIAL BLOOD FIO2 4L
[2019-02-02] MEDS ORDERED: FUROSEMIDE INJ/PF 40 MG/4 ML SDV IV ONE (12:45)
[2019-02-02] MEDS ORDERED: NORMAL SALINE 1000 ML 1,000 ML IV PRN (12:45)
[2019-02-02 13:12] LABS: PROTHROMBIN TIME 15.8 SEC (11.4-15.4)
[2019-02-02 13:13] LABS: FIBRINOGEN 502 mg/dL (209-497); PARTIAL THROMBOPLASTIN TIME 28.2 SEC (23.5-35.8)
[2019-02-02] MEDS ORDERED: CEFEPIME 2 GM/D5W RTU 2 GM/50 ML RTUPB IV SCH (14:00)
[2019-02-02] MEDS: CEFEPIME HCL 2 GM in DEXTROSE 5%-WATER 50 ML IV SCH ×2 (15:35→22:55)
[2019-02-02] MEDS ORDERED: VANCOMYCIN HCL 1,500 MG in DEXTROSE 5%-WATER 250 ML IV SCH (18:00)
--- NOTE | 2019-02-02 18:17 | Progress Note ---
Provider Note Provider Note: ID Consult Note Asked to review patient's chart. Pt not seen or examined. 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 She is currently admitted to [facility] after presenting yesterday 02/01/19 to the ED with generalized weakness, multiple falls and, per ED provider note, 3-4 days of "burping and feeling gassy." Per review of outside EHR ([facility]), pt had recent ED visits 01/20 - [facility] ED for generalized weakness and RLQ abdominal pain with no specific cause found and negative CT abdomen/pelvis w/o IV contrast 01/28 - [facility] ED for petechial rash, reported home health nurse was concerned; pt was recommended to f/u with her handy worker regarding steroid dose; incidentally noted to also have some vulvovaginal erythema and "likely yeast infection" of this area; was prescribed topical azole and Cipro based on presence of "some dysuria" plus U/A and UCx Per history obtained by Dinora Peters NP, pt has no recent travel. She is a recent . She denied history of previous ulcerated genital lesions. She reported lower extremity petechial rash was present 1-2 weeks. She was initially afebrile and had O2 sats in the 90s on room air, but over the past days she has become more tachypneic. On exam, she was noted to have an irregular heart rhythm, BLE edema to the knees, decreased breath sounds at the bases, a "fever blister" on her lower lip, a petechial rash most prominent across her abdomen and LLE, and multiple shallow ulcers on her mons pubis, medial thighs and external labia. Lab studies have included normal transaminases, SCr 2.4 now 2.0, mild hyponatremia. Thrombocytopenia and anemia similar to previously labs in late December, no leukopenia or leukocytosis. HIV test negative. RPR NR. CMV DNA pending. Viral culture from gential lesion pending. UCx mixed uday. BCx negative x 24h. Imaging - CXR on 02/01 AP film read as R sided pneumonia with air bronchograms; repeat CXR today read as worsening b/l airspace disease, possible L pleural effusion. Impression/Recommendations Challenging case. She has an undifferentiated syndrome presently for which vancomycin and cefepime were empirically started. She is suspected potentially of having pneumonia, and if she is able to produce sputum, it should be sent for culture. Can consider CT scan of the chest to try to get better definition of the pulmonary abnormalities. More unusual etiologies of pneumonia in an immunocompromised host are probably best evaluated with bronchoalveolar lavage, and if she deteriorates from a respiratory standpoint, bronchoscopy should be considered. Differential diagnosis is not limited to infectious etiologies - could include pulmonary edema, potentially also pt's underlying MPA (can have pulmonary capillaritis with variable imaging manifestations) depending on the disease activity. Petechial rash - could be cutaneous vasculitis related to the microscopic michael yangiitis but differential could also potentially include RMSF if she has been outdoors and could have had tick exposure; lack of transaminititis is not typical, however. If she has suggestive exposure in the last two weeks (e.g. lives in a wooded area, gardens outdoors), consider adding doxycycline empirically and sending RMSF serologies. Genital ulcerative lesions - description provided to me is localized bilateral distribution of shallow ulcers involving the genitals and proximal thighs. 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 Viral culture or PCR would hopefully confirm the diagnosis. Acyclovir has been started 800 mg TID - would reduce dose for HSV, which is typically 400 mg TID PO, and keep in mind need for renal dose adjustment if creatinine clearance falls. Tk Belle MD [facility] Infectious Diseases pager [phone]
--- NOTE | 2019-02-02 18:19 | ADVANCED CARE ---
- Diagnosis (1) Pneumonia involving right lung Diagnosis Current: Yes (2) Urinary tract infection Diagnosis Current: Yes (3) Afib Diagnosis Current: Yes (4) Anxiety Diagnosis Current: Yes (5) Nephrotic syndrome Diagnosis Current: Yes (6) Obesity Diagnosis Current: Yes (7) Frequent falls Diagnosis Current: Yes Attendance: The patient's two adult children, Amanuel and Harsh Hernandez. Unfortunately, the patient was confused and unable to fully participate in conversation today. Resuscitation Status: Do Not Resuscitate Discussion: We discussed the patient's current diagnoses of acute respiratory failure secondary to bilateral pneumonia and worsening clinical exam (increase tachycardia, tachypnea, hypoxia, and confusion today). We discussed in detail the plan of care including antibiotic choice, cons ultations with infectious disease and nephrology, diuretic use, and telemetry monitoring. We discussed the patient's ABG results and confusion indicate that BiPAP would not be safe (due to aspiration risk) to attempt at this time although remains available should her respiratory status further compromise. I discussed whether or not they felt that her mother would wish to be intubated if required. Her sons asked to be allowed time to consider what she would wish. I met with both of them later on this afternoon; at that time they indicated that they would wish for their mother to receive aggressive medical interventions including IV fluids, antibiotics, pressor support, blood products, limited procedures (specifically discussed central line placement), and ICU admission. However, they would not want her to be intubated or to have CPR in the event of full respiratory or cardiac arrest. Care Planning Goals: Aggressive interventions, but not including intubating/CPR; patient is made DNR/DNI. Time Spent: 40 min
--- NOTE | 2019-02-02 18:44 | PDOC PROGRESS REPORT ---
Subjective Progress Note for:: 02/02/19 Subjective:: LAYA BRIGHT is a 78 year old female with a PMH significant for hypertension, atrial fibrillation, recent diagnosis of nephrotic syndrome, obesity and anxiety who was admitted 02/01/2019 for right upper and lower lobe pneumonia. Patient was seen on morning rounds with nursing present. She is found resting in bed on supplemental oxygen via nasal cannula at 4 L/min. She is noted to be alert and oriented to self and place; socially appropriate, follows commands. However she is intermittently disoriented and asks me to knot picker cloth things off the floor. Per family, she has been asking for her mother today. She is appears more ill today than yesterday with increased ulcerations to her oral mucosa, increased rhonchi and crackles throughout, and increased intensity of petechial rash. She is currently receiving blood products for hemoglobin of 7.5. Unfortunately, ROS is limited secondary to patient's mental status; she tells me that she is feeling much better today. Long discussion had with the patient's sons; please see separate ACP note for goals of care discussion. Reason For Visit: PNEUMONIA Physical Exam Vital Signs: Temp Pulse Resp BP Pulse Ox 98.6 F 98 15 138/98 H 97 02/02/19 16:48 02/02/19 16:48 02/02/19 18:00 02/02/19 17:53 02/02/19 18:00 Intake & Output 02/01/19 02/02/19 02/03/19 06:59 06:59 06:59 Intake Total 1000 2600 Output Total 925 700 Balance 75 1900 Weight 83 kg 84.3 kg General appearance: PRESENT: obese, well-developed, other - Moderate distress, acutely ill-appearing Head exam: PRESENT: atraumatic, normocephalic Eye exam: PRESENT: conjunctiva pale, EOMI, PERRLA. ABSENT: scleral icterus Ear exam: PRESENT: normal external ear exam Mouth exam: PRESENT: dry mucosa, tongue midline, other - Multiple tongue and lip shallow ulcerations. Ulcerations to her lip have dried crusts. Neck exam: PRESENT: lymphadenopathy. ABSENT: carotid bruit, JVD, thyromegaly Respiratory exam: PRESENT: accessory muscle use, crackles - All lung greer, symmetrical, tachypnea - Shallow, other - Now requiring supplemental oxygen. AB SENT: rales, rhonchi, wheezes Cardiovascular exam: PRESENT: irregular rhythm, +S1, +S2, tachycardia. ABSENT: diastolic murmur, rubs, systolic murmur Pulses: PRESENT: +1 pedal pulses bilateral Vascular exam: PRESENT: normal capillary refill GI/Abdominal exam: PRESENT: normal bowel sounds, soft. ABSENT: distended, guarding, mass, organolmegaly, rebound, tenderness Rectal exam: PRESENT: deferred Extremities exam: PRESENT: full ROM. ABSENT: calf tenderness, clubbing, pedal edema Neurological exam: PRESENT: alert, awake, oriented to person, oriented to place, oriented to situation, CN II-XII grossly intact, other - Intermittent periods of confusion/hallucinations (reaching for things in the air and talking with her mo ther); socially appropriate and does follow simple commands with prompting.. ABSENT: oriented to time, motor sensory deficit Psychiatric exam: PRESENT: appropriate affect, normal mood. ABSENT: homicidal ideation, suicidal ideation Skin exam: PRESENT: dry, petechiae, warm. ABSENT: cyanosis, rash Results Laboratory Results: 02/02/19 05:35 02/02/19 05:35 02/01/19 02/02/19 02/02/19 14:32 05:35 05:35 WBC 5.5 RBC 2.21 L Hgb 7.4 L Hct 21.3 L MCV 97 MCH 33.5 H MCHC 34.7 RDW 24.8 H Plt Count 91 L Seg Neutrophils % Not Reportable Lymphocytes % Not Reportable Monocytes % Not Reportable Eosinophils % Not Reportable Basophils % Not Reportable Absolute Neutrophils Not Reportable Absolute Lymphocytes Not Reportable Absolute Monocytes Not Reportable Absolute Eosinophils Not Reportable Absolute Basophils Not Reportable Carbonic Acid HCO3/H2CO3 Ratio ABG pH ABG pCO2 ABG pO2 ABG HCO3 ABG O2 Saturation ABG Base Excess FiO2 Sodium 136.0 L Potassium 3.5 L Chloride 104 Carbon Dioxide 22 Anion Gap 10 BUN 52 H Creatinine 2.02 H Est GFR ( Amer) 29 L Est GFR (Non-Af Amer) 24 L Glucose 131 H Lactic Acid Calcium 8.3 L Blood Type O POSITIVE Antibody Screen NEGATIVE 02/02/19 02/02/19 12:15 12:52 WBC RBC Hgb Hct MCV MCH MCHC RDW Plt Count Seg Neutrophils % Lymphocytes % Monocytes % Eosinophils % Basophils % Absolute Neutrophils Absolute Lymphocytes Absolute Monocytes Absolute Eosinophils Absolute Basophils Carbonic Acid 0.81 L HCO3/H2CO3 Ratio 23:1 ABG pH 7.48 H ABG pCO2 26.8 L ABG pO2 74.8 L ABG HCO3 19.3 L ABG O2 Saturation 96.1 ABG Base Excess -3.1 FiO2 4L Sodium Potassium Chloride Carbon Dioxide Anion Gap BUN Creatinine Est GFR ( Amer) Est GFR (Non-Af Amer) Glucose Lactic Acid 1.4 Calcium Blood Type Antibody Screen 02/01/19 09:05 Clean Catch Midstream Urine Culture - Final Mixed Urogenital Uday 02/01/19 02/01/19 08:10 12:13 Troponin I 0.051 0.047 Impressions: Chest X-Ray 02/02/19 00:00 IMPRESSION: WORSENING BILATERAL INFILTRATES. POSSIBLE LEFT PLEURAL EFFUSION. Assessment and Plan - Diagnosis (1) Pneumonia involving right lung Qualifiers: Pneumonia type: due to unspecified organism Lung location: unspecified part of lung Qualified Code(s): J18.9 - Pneumonia, unspecified organism Is this a current diagnosis for this admission?: Yes Plan: Worsened; imaging demonstrates bilateral pneumonia, increased tachycardia, tachypnea, and hypoxia now O2 dependent. Chest x-ray reveals right upper and right lower lobe pneumonia. Repeat chest x-ray today revealed worsening bilateral pneumonia with possible left pleural effusion. Blood cultures are negative at 24 hours Sputum cultures pending; have asked respiratory therapy to attempt collection. Should consider microscopic polyangiitis as possible cause of the patient's respiratory compromise and imaging results; consider CT imaging and/or a bronchoscopy she does not respond as expected to broad-spectrum antibiotics. Patient is upgraded to ICU.. She is empirically placed on IV Rocephin and azithromycin; given the worsening pneumonia, Rocephin and azithromycin are discontinued and the patient is empirically placed on cefepime and vancomycin for healthcare associated pneumonia as (immunocompromised on high-dose steroids with multiple recent hospital admissions and ER visits). She will be provided supplemental oxygen as needed to maintain oxygen saturations. Patient's sons have indicated that she is a DNI. She is provided scheduled and as needed nebulizer treatments. Continue Mucinex twice daily. Incentive spirometer and flutter valve to bedside. Spoke with infectious disease today; appreciate Dr. Belle's thorough review and recommendations. Fortunately, the patient can be brought off airborne precautions. (2) Urinary tract infection Qualifiers: Urinary tract infection type: site unspecified Hematuria presence: without hematuria Qualified Code(s): N39.0 - Urinary tract infection, site not specified Is this a current diagnosis for this admission?: Yes Plan: Ruled out. Urine cultures are benign. Patient is received 2 days of outpatient treatment for UTI with ciprofloxacin. Urine culture mistreated mixed urogenital uday She is empirically placed on IV azithromycin and Rocephin for concurrent treatment of pneumonia; discontinued after 1 dose each. (3) Afib Qualifiers: Atrial fibrillation type: unspecified Qualified Code(s): I48.91 - Unspecified atrial fibrillation Is this a current diagnosis for this admission?: Yes Plan: Patient is rate controlled in atrial fibrillation She is not chronically anticoagulated secondary to anemia and ongoing treatment for recently diagnosed nephrotic syndrome. Continue home dose Toprol. (4) Anxiety Is this a current diagnosis for this admission?: Yes Plan: Continue home dose scheduled BuSpar; 5 mg every morning and 10 mg nightly. Xanax every 8 hours as needed. (5) Nephrotic syndrome Is this a current diagnosis for this admission?: Yes Plan: Secondary to microscopic polyangiitis. Followed by Dr. Fernandez. Creatinine and BUN appear relatively stable compared to outpatient labs and recent admission early December. We will continue home dose prednisone and Calcitrol. Continue home dose of furosemide. Avoid nephrotoxic medications as able. Monitor daily chemistries. Dr. Fernandez is consulted given the patient's illness. (6) Obesity Qualifiers: Body mass index: BMI 33.0-33.9 Is this a current diagnosis for this admission?: Yes Plan: Dietary discretion is advised. Patient was placed on cardiac diet. Registered dietitian is consulted. (7) Frequent falls Is this a current diagnosis for this admission?: Yes Plan: Family reports patient is already receiving home health nursing and physical therapy service; now requesting SNF for short-term rehab. Fall precautions. Discharge planning is consulted (8) Skin lesion Is this a current diagnosis for this admission?: Yes Plan: Multiple shallow ulcerations to the mons pubis/labia majora and medial thighs at the groin (resembling herpes), in association w/ fever, malaise, headache, and generalized weakness. HIV negative. RPR nonreactive. Herpes viral culture is pending. HSV 1 and 2 PCR are pending. Infectious disease was consulted; appreciate Dr. Belle's assistance. We will decrease acyclovir to 400 mg 3 times daily; monitor renal function and reduce dose appropriately if creatinine clearance declines. Analgesics as needed. (9) Petechial rash Is this a current diagnosis for this admission?: Yes Plan: Fine macular, non-blanchable rash, resembling petechia (scattered across all extremities, anterior and posterior trunk, and abdomen) in association with fever, malaise, headache, generalized weakness and bilateral pneumonia in immunocompromised host (has been on chronic high-dose steroids since early October for microscopic polyangiitis) concerning for blood dyscrasias, vasculitis, drug exanthema, or infectious process. Patient reports that she did have chickenpox as a child, but has not received the varicella vaccine, zoster vaccine, or had an active case of shingles. She also endorses a history of measles and mumps as a child, but cannot recall definitively whether or not she has received the MMR as an adult (based on history, should be immune). No recent travel. Platelets are noted to be low (106-> 91), although this is improved from her recent outpatient lab work. Platelets were as low as 57 one month ago. Hemoglobin was also low at 8.1 on admission, however, this is at her baseline. APTT 25, PT 15.3, INR 1.15, Fibrinogen 483. Repeat coags today were again unremarkable. Given normal coags; DIC is ruled out. HIV is negative. RPR is nonreactive. Herpes simples C&S, HSV 1 and 2 PCR, viral culture, Cytomegalovirus PCR are pending. Blood Cx negative at 24 hours. Urine Cx showed normal uday. Sputum Cx pending. Continue renally dosed acyclovir for HSV. Spoke with Dr. Belle today; appreciate her assistance. Should consider microscopic polyangiitis or potentially RMSF. Nursing has obtained photos and placed in her chart for monitoring. (10) Thrush Is this a current diagnosis for this admission?: Yes Plan: Nystatin swish and swallow. (11) Anemia Qualifiers: Anemia type: unspecified type Qualified Code(s): D64.9 - Anemia, unspecified Is this a current diagnosis for this admission?: Yes Plan: Patient was admitted with a hemoglobin of 8.1; trended down to 7.5. Given the patient's acute illness, tachycardia, and hypoxia; 2 units PRBC are ordered for transfusion. Coags are normal. Urinalysis did reveal small amount of blood; no gross hematuria noted in Severino catheter. Hemoccult pending. No evidence of active bleeding at this time. We will continue monitor daily CBCs and transfuse for hemoglobin less than 8. Nephrology has been consulted. - Time Time Spent with patient: 35 or more minutes Medications reviewed and adjusted accordingly: Yes
[2019-02-02 20:59] LABS: HEMATOCRIT 26.7 % (36.0-47.0); HEMOGLOBIN 9.2 g/dL (12.0-15.5); MEAN CORPUSCULAR HEMOGLOBIN 32.1 pg (27.0-33.4); MEAN CORPUSCULAR HGB CONC 34.6 g/dL (32.0-36.0); RED BLOOD COUNT 2.88 10^6/uL (3.72-5.28); RED CELL DISTRIBUTION WIDTH 21.1 % (11.5-14.0); WHITE BLOOD COUNT 4.8 10^3/uL (4.0-10.5)
[2019-02-02 21:17] LABS: PLATELET COUNT 73 10^3/uL (150-450)
[2019-02-02 22:31] LABS: MEAN CORPUSCULAR VOLUME 93 fl (80-97)
[2019-02-02] MEDS: ATORVASTATIN CALCIUM 10 MG TABLET PO SCH (22:55)
[2019-02-02] MEDS: CALCITRIOL 0.25 MCG CAPSULE PO SCH (22:56)
[2019-02-02] MEDS: ACYCLOVIR 200 MG CAPSULE PO SCH (22:57)
[2019-02-03] MEDS: IPRATROPIUM/ALBUTEROL 0.5-2.5 MG/3 ML AMPUL NEB SCH ×3 (01:47→14:29)
[2019-02-03 04:14] LABS: HEMATOCRIT 27.2 % (36.0-47.0); HEMOGLOBIN 9.6 g/dL (12.0-15.5); MEAN CORPUSCULAR HEMOGLOBIN 32.4 pg (27.0-33.4); MEAN CORPUSCULAR HGB CONC 35.3 g/dL (32.0-36.0); MEAN CORPUSCULAR VOLUME 92 fl (80-97); RED BLOOD COUNT 2.96 10^6/uL (3.72-5.28); RED CELL DISTRIBUTION WIDTH 21.4 % (11.5-14.0); WHITE BLOOD COUNT 4.7 10^3/uL (4.0-10.5)
[2019-02-03 04:34] LABS: ALANINE AMINOTRANSFERASE 33 U/L (9-52); ALBUMIN 2.4 g/dL (3.5-5.0); ALKALINE PHOSPHATASE 43 U/L (38-126); ANION GAP 9 (5-19); ASPARTATE AMINO TRANSFERASE 13 U/L (14-36); BILIRUBIN,DIRECT 0.4 mg/dL (0.0-0.4); BILIRUBIN,TOTAL 0.6 mg/dL (0.2-1.3); BLOOD UREA NITROGEN 50 mg/dL (7-20); CALCIUM 8.1 mg/dL (8.4-10.2); CARBON DIOXIDE 23 mmol/L (22-30); CHLORIDE 102 mmol/L (98-107); GLUCOSE 226 mg/dL (75-110); PHOSPHORUS 4.7 mg/dL (2.5-4.5); POTASSIUM 3.6 mmol/L (3.6-5.0); SODIUM 133.9 mmol/L (137-145); TOTAL PROTEIN 4.3 g/dL (6.3-8.2)
[2019-02-03 04:35] LABS: ABSOLUTE LYMPHOCYTES# (MANUAL) 0.2 10^3/uL (0.5-4.7); ABSOLUTE NEUTROPHILS# (MANUAL) 4.4 10^3/uL (1.7-8.2); ANISOCYTOSIS 3+; BASOPHILS % (MANUAL) 0 % (0-2); EOSINOPHILS % (MANUAL) 0 % (0-6); LYMPHOCYTES % (MANUAL) 5 % (13-45); MONOCYTES % (MANUAL) 1 % (3-13); SEGMENTED NEUTROPHILS % (MAN) 94 % (42-78); TOTAL CELLS COUNTED 100
[2019-02-03 04:37] LABS: PLATELET COMMENT DECREASED; PLATELET COUNT 77 10^3/uL (150-450)
[2019-02-03] MEDS: CEFEPIME HCL 2 GM in DEXTROSE 5%-WATER 50 ML IV SCH ×2 (06:53→14:32)
[2019-02-03] MEDS: ACYCLOVIR 200 MG CAPSULE PO SCH ×2 (06:54→18:44)
[2019-02-03] MEDS ORDERED: ACYCLOVIR 800 MG TABLET PO SCH (10:00)
[2019-02-03] MEDS: NYSTATIN 500000 UNIT/5 ML UDCUP PO SCH ×3 (10:08→18:31)
[2019-02-03] MEDS: GUAIFENESIN 600 MG TABLET.SA PO SCH (10:09)
[2019-02-03] MEDS: FUROSEMIDE 40 MG TABLET PO SCH (10:09)
[2019-02-03] MEDS: PREDNISONE 20 MG TABLET PO SCH (10:10)
[2019-02-03] MEDS: PANTOPRAZOLE SODIUM 40 MG TABLET.DR PO SCH (10:12)
[2019-02-03] MEDS: MAGNESIUM OXIDE 400 MG TABLET PO SCH (10:13)
[2019-02-03] MEDS: METOPROLOL SUCCINATE 50 MG TAB.SR.24H PO SCH ×2 (10:17→18:32)
[2019-02-03] MEDS: NYSTATIN TOPICAL POWDER 15 GM TP SCH ×2 (10:18→18:30)
--- NOTE | 2019-02-03 11:07 | PDOC CONSULTATION ---
Consultation Consult Date: 02/03/19 Provider Consulted: Evelyn MIRZA History of Present Illness Admission Date/PCP: 02/01/19 11:49 History of Present Illness: LAYA BRIGHT is a 78 year old female with a history of recent diagnosis of microscopic polyangiitis/ANCA vasculitis positive JOSE with rapidly progressive renal failure, background history of hypertension, atrial fibrillation was admitted with history of generalized weakness and multiple falls. Diagnosed with his rapidly progressive JOSE around October of this year and was initially begun on on IV Cytoxan and IV/p.o. steroids. She had 2 doses of Cytoxan and then became pancytopenic and therefore we had to discontinue Cytoxan therapy but she continued on high doses of prednisone which currently she is on 20 mg. Cytopenia has improved but for lowish hemoglobin for which she has been begun on erythropoietin. 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 Also had generalized ecchymotic/scatterred papular lesions of her scans. Her latest platelets when I saw her recently in the office was 106. Evaluation in the emergency department revealed a right upper lobe and lower lobe pneumonia with UTI. She was found to have hemoglobin of 8.1 (at baseline), creatinine of 2.41 and BUN of 62 (unchanged as compared to recent outpatient labs), indeterminately elevated troponin of 0.05, EKG confirms atrial fibrillation. Patient is also reveals that the patient has got shallow painful ulcers around the vaginal area and also on her lower lip suggestive of herpes ulcers. The chest x-ray initially on admission on Saturday and from today and shows worsen ing bilateral pneumonia. I am concerned whether that she possibly has pneumocystis infection. If that is the case present coverage of antibiotics will be insufficient. I discussed with Dr. Noel to discuss with ID and to make a switch to IV Bactrim and clindamycin as well. 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 Malignancy Medical History: Reports: None GI Medical History: Reports: Gastroesophageal Reflux Disease Musculoskeltal Medical History: Reports: Arthritis Psychiatric Medical History: Reports: General Anxiety Disorder Traumatic Medical History: Reports: None Infectious Medical History: Reports: None Hematology Medical History: Reports Anemia of Chronic Kidney Disease Past Surgical History Past Surgical History: Reports: Cholecystectomy, Hysterectomy, Orthopedic Surgery - Carpal Tunnel Social History Lives with: Alone Smoking Status: Never Smoker Frequency of Alcohol Use: None Hx Recreational Drug Use: No Drugs: None Hx Prescription Drug Abuse: No - Advance Directive Resuscitation Status: Do Not Resuscitate Family History Parental Family History Reviewed: Yes - negative for for ESRD Children Family History Reviewed: No Sibling(s) Family History Reviewed.: No Medication/Allergy Home Medications: Ascorbic Acid [Vitamin C] 1,000 mg PO DAILY 12/29/18 Calcitriol [Rocaltrol 0.5 mcg Capsule] 0.5 mcg PO QHS 12/29/18 Cholecalciferol (Vitamin D3) [Vitamin D3 1000 Unit Tablet] 1,000 unit PO DAILY 12/29/18 Magnesium Oxide [Magnesium] 500 mg PO DAILY 12/29/18 Pantoprazole Sodium [Protonix [address] Tablet] 40 mg PO QAM 12/29/18 Pravastatin Sodium [Pravachol] 40 mg PO QPM 12/29/18 Prednisone [Deltasone 20 mg Tablet] 60 mg PO DAILY 12/29/18 Ubidecarenone/Vit E Acet [Co Q-10 100 mg Softgel] 1 cap PO QHS 12/29/18 l Gasseri/B Bifidum/B Longum [Soni Colon Health Capsule] 1 cap PO DAILY 12/29/18 Acetaminophen [Tylenol 325 mg Tablet] 650 mg PO Q4HP PRN tablet 01/01/19 Buspirone HCl [Buspar 10 mg Tablet] 5 mg PO DAILY 02/01/19 Buspirone HCl [Buspar 10 mg Tablet] 10 mg PO QHS 02/01/19 Ciprofloxacin HCl [Cipro 500 mg Tablet] 500 mg PO BID MDD filled 01/29 for 7 day supply 02/01/19 Furosemide [Lasix] 40 mg PO DAILY 02/01/19 Metolazone [Zaroxolyn 5 Mg Tablet] 5 mg PO MOWEFR@1000 02/01/19 Metoprolol Succinate 100 mg PO Q12 02/01/19 Nystatin [Mycostatin 205397 Unit/mL Susp 60 mL] 5 ml PO QID 02/01/19 Allergies/Adverse Reactions: codeine Allergy (Unknown, Verified 02/01/19 07:51) Sulfa (Sulfonamide Antibiotics) Allergy (Unknown, Verified 02/01/19 07:51) Review of Systems Constitutional: PRESENT: fatigue, weakness. ABSENT: fever(s), headache(s), night sweats Eyes: ABSENT: visual disturbances Ears: ABSENT: hearing changes Nose, Mouth, and Throat: ABSENT: headache(s), mouth pain, sore throat Cardiovascular: PRESENT: dyspnea on exertion, edema. ABSENT: chest pain, orthropnea Respiratory: PRESENT: dyspnea. ABSENT: cough, hemoptysis Gastrointestinal: ABSENT: abdominal pain, coffee ground emesis, diarrhea, dysphagia, heartburn, hematemesis, hematochezia Genitourinary: ABSENT: dysuria, hematuria Musculoskeletal: ABSENT: back pain, deformity, joint swelling Integumentary: PRESENT: lesions - Generalized rash and got painful ulcers of vaginal area and on her lower lip, rash. ABSENT: pruritus Neurological: PRESENT: frequent falls - Proximal weakness of the lower extremities. ABSENT: abnormal movements, abnormal speech, confusion, convulsions, focal weakness, paresthesias, restless legs Psychiatric: ABSENT: hallucinations Hematologic/Lymphatic: ABSENT: easy bleeding, easy bruising, lymphadenopathy Physical Exam Vital Signs: Temp Pulse Resp BP Pulse Ox 97.5 F 97 19 147/95 H 94 02/03/19 08:00 02/03/19 10:00 02/03/19 10:00 02/03/19 10:00 02/03/19 10:00 Intake & Output 02/02/19 02/03/19 02/04/19 06:59 06:59 06:59 Intake Total 1000 2950 Output Total 925 1910 210 Balance 75 1040 -210 Weight 83 kg 82.7 kg General appearance: PRESENT: no acute distress Eye exam: PRESENT: EOMI, PERRLA. ABSENT: periorbital swelling Ear exam: PRESENT: normal external ear exam Mouth exam: PRESENT: moist, neck supple Neck exam: ABSENT: lymphadenopathy, meningismus, tenderness, thyromegaly, tracheal deviation Respiratory exam: PRESENT: clear to auscultation destiney, crackles - Right mid zone, tachypnea. ABSENT: rhonchi Cardiovascular exam: PRESENT: +S1, +S2 GI/Abdominal exam: PRESENT: normal bowel sounds, soft. ABSENT: organomegaly, tenderness Extremities exam: PRESENT: pedal edema Neurological exam: PRESENT: alert, awake, oriented to person, oriented to place Psychiatric exam: PRESENT: anxious Skin exam: PRESENT: erythema - Pulses of the left lower extremity. She has got a papular rash of anterior chest and abdomen., vesicles - Shallow painful ulcers in the perivaginal area as well as lower lip. ABSENT: cyanosis Results Laboratory Results: 02/03/19 03:52 02/03/19 03:52 02/01/19 02/02/19 02/02/19 14:32 12:15 12:52 WBC RBC Hgb Hct MCV MCH MCHC RDW Plt Count Seg Neutrophils % Lymphocytes % Monocytes % Eosinophils % Basophils % Absolute Neutrophils Absolute Lymphocytes Absolute Monocytes Absolute Eosinophils Absolute Basophils Carbonic Acid 0.81 L HCO3/H2CO3 Ratio 23:1 ABG pH 7.48 H ABG pCO2 26.8 L ABG pO2 74.8 L ABG HCO3 19.3 L ABG O2 Saturation 96.1 ABG Base Excess -3.1 FiO2 4L Sodium Potassium Chloride Carbon Dioxide Anion Gap BUN Creatinine Est GFR ( Amer) Est GFR (Non-Af Amer) Glucose Lactic Acid 1.4 Calcium Phosphorus Magnesium Total Bilirubin AST ALT Alkaline Phosphatase Total Protein Albumin Blood Type O POSITIVE Antibody Screen NEGATIVE 02/02/19 02/03/19 02/03/19 20:30 03:52 03:52 WBC 4.8 4.7 RBC 2.88 L 2.96 L Hgb 9.2 L 9.6 L Hct 26.7 L 27.2 L MCV 93 D 92 MCH 32.1 32.4 MCHC 34.6 35.3 RDW 21.1 H 21.4 H Plt Count 73 L 77 L Seg Neutrophils % Not Reportable Lymphocytes % Not Reportable Monocytes % Not Reportable Eosinophils % Not Reportable Basophils % Not Reportable Absolute Neutrophils Not Reportable Absolute Lymphocytes Not Reportable Absolute Monocytes Not Reportable Absolute Eosinophils Not Reportable Absolute Basophils Not Reportable Carbonic Acid HCO3/H2CO3 Ratio ABG pH ABG pCO2 ABG pO2 ABG HCO3 ABG O2 Saturation ABG Base Excess FiO2 Sodium 133.9 L Potassium 3.6 Chloride 102 Carbon Dioxide 23 Anion Gap 9 BUN 50 H Creatinine 1.87 H Est GFR ( Amer) 32 L Est GFR (Non-Af Amer) 26 L Glucose 226 H Lactic Acid Calcium 8.1 L Phosphorus 4.7 H Magnesium 1.9 Total Bilirubin 0.6 AST 13 L ALT 33 Alkaline Phosphatase 43 Total Protein 4.3 L Albumin 2.4 L Blood Type Antibody Screen 02/01/19 09:05 Clean Catch Midstream Urine Culture - Final Mixed Urogenital Marlyn 02/01/19 02/01/19 08:10 12:13 Troponin I 0.051 0.047 Impressions: Chest X-Ray 02/02/19 00:00 IMPRESSION: WORSENING BILATERAL INFILTRATES. POSSIBLE LEFT PLEURAL EFFUSION. Assessment & Plan - Diagnosis (1) JOSE (acute kidney injury) Plan: In the face of microscopic polyangiitis. Associated nephrotic syndrome. Kalin ated initially with high-dose of steroids plus IV Cytoxan x2 doses only. She had pancytopenia following the Cytoxan which had to be held thereafter. She has also had proximal steroid myopathy. Her renal numbers have improved from around 4+ to current 2+ creatinine. Hematuria has resolved and the proteinuria has come down but still active. (2) Afib Qualifiers: Atrial fibrillation type: unspecified Qualified Code(s): I48.91 - Unspecified atrial fibrillation Is this a current diagnosis for this admission?: Yes Plan: Rate controlled. (3) Anemia Qualifiers: Anemia type: unspecified type Qualified Code(s): D64.9 - Anemia, unspecified Is this a current diagnosis for this admission?: Yes Plan: Chronic disease. Started on erythropoietin as an outpatient. (4) Frequent falls Is this a current diagnosis for this admission?: Yes (5) Microscopic polyangiitis Plan: Currently responding to the treatment initiated earlier. (6) Nephrotic syndrome Is this a current diagnosis for this admission?: Yes (7) Pneumonia involving right lung Qualifiers: Pneumonia type: due to unspecified organism Lung location: unspecified part of lung Qualified Code(s): J18.9 - Pneumonia, unspecified organism Is this a current diagnosis for this admission?: Yes Plan: Currently on antibiotics. However concerning for possible pneumocystis. Discussed with hospitalist for possible BAL and conversion of antibiotics to IV Bactrim. (8) Skin lesion Is this a current diagnosis for this admission?: Yes Plan: Ecchymosis with maculopapular rash. Possible secondary to vasculitis. (9) Urinary tract infection Qualifiers: Urinary tract infection type: site unspecified Hematuria presence: without hematuria Qualified Code(s): N39.0 - Urinary tract infection, site not specified Is this a current diagnosis for this admission?: Yes Plan: Cultures pending. On antibiotics.
[2019-02-03] MEDS ORDERED: PHENYLEPHRINE HCL 1 EACH SUPP.RECT PR PRN (11:23)
[2019-02-03] MEDS ORDERED: LISINOPRIL 10 MG TABLET PO SCH (12:15)
--- NOTE | 2019-02-03 13:39 | PDOC TRANSFER SUMMARY ---
General Admission Date/PCP: 02/01/19 11:49 Resuscitation Status: Do Not Resuscitate - Transfer Diagnosis (1) Pneumonia involving right lung Is this a current diagnosis for this admission?: Yes Diagnosis Summary: Worsened; imaging demonstrates bilateral pneumonia, increased tachycardia, tachypnea, and hypoxia now O2 dependent. Chest x-ray reveals right upper and right lower lobe pneumonia. Repeat chest x-ray today revealed worsening bilateral pneumonia with possible left pleural effusion. Blood cultures are negative at 24 hours Sputum cultures pending; have asked respiratory therapy to attempt collection. Should consider microscopic polyangiitis as possible cause of the patient's respiratory compromise and imaging results; consider CT imaging and/or a bronchoscopy she does not respond as expected to broad-spectrum antibiotics. Patient is upgraded to ICU.. She is empirically placed on IV Rocephin and azithromycin; given the worsening pneumonia, Rocephin and azithromycin are discontinued and the patient is empirically placed on cefepime and vancomycin for healthcare associated pneumonia as (immunocompromised on high-dose steroids with multiple recent hospital admissions and ER visits). She will be provided supplemental oxygen as needed to maintain oxygen saturations. Patient's sons have indicated that she is a DNI. She is provided scheduled and as needed nebulizer treatments. Continue Mucinex twice daily. Incentive spirometer and flutter valve to bedside. Spoke with infectious disease today; appreciate Dr. Belle's thorough review and recommendations. Fortunately, the patient can be brought off airborne precautions. 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 prednisone Dr. Belle and Dr. Fernandez thinking about possible PCP and [facility] unfortunately we do not have a toeing stockings available here until [address] Blanca toeing stockings in [facility] and also with the Dr. Kenney resident in [facility] they agreed to take the patient patient is going to be admitted under Dr. Cruz. Should is presently on the clindamycin, IV azithromycin and IV Rocephin. She is allergic to Bactrim. (2) Urinary tract infection Is this a current diagnosis for this admission?: Yes Diagnosis Summary: Ruled out. Urine cultures are benign. Patient is received 2 days of outpatient treatment for UTI with ciprofloxacin. Urine culture mistreated mixed urogenital uday She is empirically placed on IV azithromycin and Rocephin for concurrent treatment of pneumonia; discontinued after 1 dose each. (3) Afib Is this a current diagnosis for this admission?: Yes Diagnosis Summary: Patient is rate controlled in atrial fibrillation She is not chronically anticoagulated secondary to anemia and ongoing treatment for recently diagnosed nephrotic syndrome. Continue home dose Toprol. 02/03/2019-patient's heart rate is today 72 rate controlled still in atrial fibrillation. No complaints. Is to continue home dose of Toprol. (4) Anxiety Is this a current diagnosis for this admission?: Yes (5) Petechial rash Is this a current diagnosis for this admission?: Yes Diagnosis Summary: Fine macular, non-blanchable rash, resembling petechia (scattered across all extremities, anterior and posterior trunk, and abdomen) in association with fe marty, malaise, headache, generalized weakness and bilateral pneumonia in immunocompromised host (has been on chronic high-dose steroids since early October for microscopic polyangiitis) concerning for blood dyscrasias, vasculitis, drug exanthema, or infectious process. Patient reports that she did have chickenpox as a child, but has not received the varicella vaccine, zoster vaccine, or had an active case of shingles. She also endorses a history of measles and mumps as a child, but cannot recall definitively whether or not she has received the MMR as an adult (based on history, should be immune). No recent travel. Platelets are noted to be low (106-> 91), although this is improved from her recent outpatient lab work. Platelets were as low as 57 one month ago. Hemoglobin was also low at 8.1 on admission, however, this is at her baseline. APTT 25, PT 15.3, INR 1.15, Fibrinogen 483. Repeat coags today were again unremarkable. Given normal coags; DIC is ruled out. HIV is negative. RPR is nonreactive. Herpes simples C&S, HSV 1 and 2 PCR, viral culture, Cytomegalovirus PCR are pending. Blood Cx negative at 24 hours. Urine Cx showed normal uday. Sputum Cx pending. Continue renally dosed acyclovir for HSV. Spoke with Dr. Belle today; appreciate her assistance. Should consider mi croscopic polyangiitis or potentially RMSF. Nursing has obtained photos and placed in her chart for monitoring. 02/03/2019-patient is receiving acyclovir 400 mg p.o. every 8 hours for HSV. ID consult was requested and note was provided by Dr. Belle yesterday. (6) Anemia Is this a current diagnosis for this admission?: Yes Diagnosis Summary: Patient was admitted with a hemoglobin of 8.1; trended down to 7.5. Given the patient's acute illness, tachycardia, and hypoxia; 2 units PRBC are ordered for transfusion. Coags are normal. Urinalysis did reveal small amount of blood; no gross hematuria noted in Severino catheter. Hemoccult pending. No evidence of active bleeding at this time. We will continue monitor daily CBCs and transfuse for hemoglobin less than 8. Nephrology has been consulted. 02/03/2019-patient's latest hemoglobin is 8.6 patient has history of anemia of chronic disease most likely secondary to underlying chronic kidney disease. (7) Nephrotic syndrome Is this a current diagnosis for this admission?: Yes Diagnosis Summary: Secondary to microscopic polyangiitis. Followed by Dr. Fernandez. Creatinine and BUN appear relatively stable compared to outpatient labs and recent admission early December. We will continue home dose prednisone and Calcitrol. Continue home dose of furosemide. Avoid nephrotoxic medications as able. Monitor daily chemistries. Dr. Fernandez is consulted given the patient's illness. 02/03/2019-patient developed nephrotic syndrome most likely secondary to microscopic polyangiitis she follows with Dr. Fernandez as an outpatient. Presently on p.o. prednisone and calcitriol which was continued during the hospital stay she is also on a furosemide which was continued here. - Transfer Medications Home Medications: Ascorbic Acid [Vitamin C] 1,000 mg PO DAILY 12/29/18 Calcitriol [Rocaltrol 0.5 mcg Capsule] 0.5 mcg PO QHS 12/29/18 Cholecalciferol (Vitamin D3) [Vitamin D3 1000 Unit Tablet] 1,000 unit PO DAILY 12/29/18 Magnesium Oxide [Magnesium] 500 mg PO DAILY 12/29/18 Nystatin [Mycostatin 060671 Unit/1 ml Susp 60 ml Btl] 500,000 unit PO QID 12/29/18 Pantoprazole Sodium [Protonix [address] Tablet] 40 mg PO QAM 12/29/18 Pravastatin Sodium [Pravachol] 40 mg PO QPM 12/29/18 Prednisone [Deltasone 20 mg Tablet] 30 mg PO DAILY 12/29/18 Ubidecarenone/Vit E Acet [Co Q-10 100 mg Softgel] 1 cap PO QHS 12/29/18 l Gasseri/B Bifidum/B Longum [[facility] Capsule] 1 cap PO DAILY 12/29/18 Buspirone HCl [Buspar 10 mg Tablet] 5 mg PO DAILY 02/01/19 Buspirone HCl [Buspar 10 mg Tablet] 10 mg PO QHS 02/01/19 Ciprofloxacin HCl [Cipro 500 mg Tablet] 500 mg PO BID 02/01/19 Furosemide [Lasix] 40 mg PO DAILY 02/01/19 Metolazone [Zaroxolyn 5 Mg Tablet] 5 mg PO ASDIR 02/01/19 Metoprolol Succinate 100 mg PO BID 02/01/19 Nystatin [Mycostatin 774355 Unit/mL Susp 60 mL] 5 ml PO QID 02/01/19 Transfer Medications: Current Medications Acetaminophen (Tylenol 325 Mg Tablet) 650 mg PO Q4HP PRN PRN Reason: Temperature greater than 101F Stop: 03/03/19 11:57 Acyclovir (Zovirax 200 Mg Capsule) 400 mg PO Q8 [facility] Stop: 02/09/19 21:59 Last Admin: 02/03/19 06:54 Dose: 400 mg Documented by: Albuterol (Ventolin 0.083% Neb 2.5 Mg/3 Ml Ampul) 2.5 mg NEB RTQ4HP PRN PRN Reason: SHORTNESS OF BREATH Stop: 03/03/19 11:57 Albuterol/Ipratropium (Duoneb 3 Ml Ampul) 3 ml NEB RTQ6 [facility] Stop: 03/04/19 13:59 Last Admin: 02/03/19 08:53 Dose: 3 ml Documented by: Alprazolam (Xanax 0.25 Mg Tablet) 0.25 mg PO Q8HP PRN PRN Reason: ANXIETY Stop: 02/08/19 11:56 Ascorbic Acid (Vitamin C 500 Mg Tablet) 1,000 mg PO DAILY [facility] Stop: 03/06/19 09:59 Atorvastatin Calcium (Lipitor 10 Mg Tablet) 10 mg PO QHS [facility] Stop: 03/03/19 21:59 Last Admin: 02/02/19 22:55 Dose: 10 mg Documented by: Buspirone HCl (Buspar 10 Mg Tablet) 5 mg PO DAILY [facility] Stop: 03/06/19 09:59 Calcitriol (Rocaltrol 0.25 Mcg Capsule) 0.5 mcg PO QHS [facility] Stop: 03/03/19 21:59 Last Admin: 02/02/19 22:56 Dose: 0.5 mcg Documented by: Furosemide (Lasix 40 Mg Tablet) 40 mg PO DAILY [facility] Stop: 03/04/19 09:59 Last Admin: 02/03/19 10:09 Dose: 40 mg Documented by: Samiraifenesin (Mucinex Sr 600 Mg Tablet.Sa) 600 mg PO Q12 [facility] Stop: 03/03/19 21:59 Last Admin: 02/03/19 10:09 Dose: 600 mg Documented by: Samiraifenesin (Robitussin Syrup 200 Mg/10 Ml Ud Cup) 200 mg PO QIDP PRN PRN Reason: COUGH Stop: 03/03/19 11:57 Last Admin: 02/01/19 22:05 Dose: 200 mg Documented by: Hard Fat/Phenylephrine (Anusol Suppository) 1 each MS Q12HP PRN PRN Reason: HEMORRHOIDS Stop: 03/05/19 11:22 Last Admin: 02/03/19 12:00 Dose: 1 each Documented by: Cefepime HCl 2 gm/ Dextrose 50 mls @ 100 mls/hr IV Q8 [facility] Stop: 02/09/19 13:59 Last Infusion: 02/03/19 11:21 Dose: Infused Documented by: Sodium Chloride (Nacl 0.9% 1000 Ml Iv Soln) 1,000 mls @ 25 mls/hr IV CONTINUOUS PRN PRN Reason: THIS MED IS NOT "PRN" Stop: 03/03/19 11:57 Vancomycin HCl 1,500 mg/ (Dextrose) 250 mls @ 166.667 mls/hr IV Q2D [facility] Stop: 02/09/19 17:59 Last Admin: 02/02/19 17:47 Dose: 166.67 mls/hr, 166.67 mls/hr Documented by: Clindamycin Phosphate/Dextrose (Cleocin Rtu 600 Mg/D5w 50 Ml Premix) 600 mg in 50 mls @ 50 mls/hr IV Q8 [facility] Stop: 02/10/19 13:59 Lisinopril (Prinivil 10 Mg Tablet) 10 mg PO DAILY [facility] Stop: 03/05/19 12:14 Magnesium Oxide (Mag-Ox 400 Mg Tablet) 400 mg PO DAILY [facility] Stop: 03/04/19 09:59 Last Admin: 02/03/19 10:13 Dose: 400 mg Documented by: Metoprolol Succinate (Toprol Xl 50 Mg Tab.Sr) 100 mg PO BID [facility] Stop: 03/03/19 17:59 Last Admin: 02/03/19 10:17 Dose: 100 mg Documented by: Nystatin (Mycostatin Topical Powder 15 Gm) 1 applic TP BID [facility] Stop: 02/08/19 17:59 Last Admin: 02/03/19 10:18 Dose: 1 applic Documented by: Nystatin (Mycostatin 500,000 Unit/5 Ml Susp Udcup) 500,000 unit PO QID [facility] Stop: 02/08/19 17:59 Last Admin: 02/03/19 10:08 Dose: 500,000 unit Documented by: Pantoprazole Sodium (Protonix [address] Tablet) 40 mg PO QAM [facility] Stop: 03/04/19 07:59 Last Admin: 02/03/19 10:12 Dose: 40 mg Documented by: Patient Own Medication (L Gasseri/B Bifidum/B Longum [[facility] Capsule]) 1 cap PO DAILY [facility] Stop: 03/06/19 09:59 Patient Own Medication (Ubidecarenone/Vit E Acet [Co Q-10 100 Mg Softgel]) 1 c ap PO QHS [facility] Stop: 03/05/19 21:59 Prednisone (Deltasone 20 Mg Tablet) 30 mg PO DAILY [facility] Stop: 03/04/19 09:59 Last Admin: 02/03/19 10:10 Dose: 30 mg Documented by: Sodium Chloride (Saline Flush 2.5 Ml Monoject Prefil Syrin) 2.5 ml IV Q8 [facility] Stop: 03/03/19 13:59 Last Admin: 02/03/19 06:54 Dose: 2.5 ml Documented by: - Allergies Allergies/Adverse Reactions: codeine Allergy (Unknown, Verified 02/01/19 07:51) Sulfa (Sulfonamide Antibiotics) Allergy (Unknown, Verified 02/01/19 07:51) Hospital Course Hospital Course: Worsened; imaging demonstrates bilateral pneumonia, increased tachycardia, t achypnea, and hypoxia now O2 dependent. Chest x-ray reveals right upper and right lower lobe pneumonia. Repeat chest x-ray today revealed worsening bilateral pneumonia with possible left pleural effusion. Blood cultures are negative at 24 hours Sputum cultures pending; have asked respiratory therapy to attempt collection. Should consider microscopic polyangiitis as possible cause of the patient's respiratory compromise and imaging results; consider CT imaging and/or a bronchoscopy she does not respond as expected to broad-spectrum antibiotics. Patient is upgraded to ICU.. She is empirically placed on IV Rocephin and azithromycin; given the worsening pneumonia, Rocephin and azithromycin are discontinued and the patient is empirically placed on cefepime and vancomycin for healthcare associated pneumonia as (immunocompromised on high-dose steroids with multiple recent hospital admissions and ER visits). She will be provided supplemental oxygen as needed to maintain oxygen saturations. Patient's sons have indicated that she is a DNI. She is provided scheduled and as needed nebulizer treatments. Continue Mucinex twice daily. Incentive spirometer and flutter valve to bedside. Spoke with infectious disease today; appreciate Dr. Belle's thorough review and recommendations. Fortunately, the patient can be brought off airborne precautions. 02/03/[id number]-vaam-old female with history of obesity, hypertension, atrial fibrillation, microscopic polyangiitis proven by renal biopsy admitted for right-sided pneumonia she was upgraded to ICU yesterday because of worsening of the pneumonia. Patient received immunosuppression as an outpatient and there is a high possibility of PCP pneumonitis and we do not have any toeing stockings available for bronchoscopy I spoke to transfer center in [facility] and also spoke to Dr. Blanca the toeing stockings and also spoke to the medical coding auditor Dr. Kenney they agreed to take the patient to the [facility]. Physical Exam Vital Signs: Temp Pulse Resp BP Pulse Ox 97.8 F 99 21 H 145/109 H 94 02/03/19 12:00 02/03/19 12:00 02/03/19 12:00 02/03/19 12:00 02/03/19 12:00 Intake & Output 02/02/19 02/03/19 02/04/19 06:59 06:59 06:59 Intake Total 1000 2950 50 Output Total 925 1910 410 Balance 75 1040 -360 Weight 83 kg 82.7 kg General appearance: PRESENT: no acute distress, obese Head exam: PRESENT: atraumatic Eye exam: PRESENT: PERRLA Teeth exam: PRESENT: poor dentation Neck exam: ABSENT: carotid bruit, JVD, lymphadenopathy, thyromegaly Respiratory exam: PRESENT: decreased breath sounds Cardiovascular exam: PRESENT: RRR. ABSENT: diastolic murmur, rubs, systolic murmur Vascular exam: PRESENT: normal capillary refill GI/Abdominal exam: PRESENT: normal bowel sounds, soft. ABSENT: distended, guarding, mass, organolmegaly, rebound, tenderness Rectal exam: PRESENT: deferred Gentrourinary exam: PRESENT: indwelling catheter Neurological exam: PRESENT: alert, awake, oriented to person, oriented to place, oriented to time, oriented to situation, CN II-XII grossly intact. ABSENT: motor sensory deficit Psychiatric exam: PRESENT: appropriate affect, normal mood. ABSENT: homicidal ideation, suicidal ideation Results Laboratory Results: 02/03/19 03:52 02/03/19 03:52 02/01/19 02/02/19 02/03/19 14:32 20:30 03:52 WBC 4.8 4.7 RBC 2.88 L 2.96 L Hgb 9.2 L 9.6 L Hct 26.7 L 27.2 L MCV 93 D 92 MCH 32.1 32.4 MCHC 34.6 35.3 RDW 21.1 H 21.4 H Plt Count 73 L 77 L Seg Neutrophils % Not Reportable Lymphocytes % Not Reportable Monocytes % Not Reportable Eosinophils % Not Reportable Basophils % Not Reportable Absolute Neutrophils Not Reportable Absolute Lymphocytes Not Reportable Absolute Monocytes Not Reportable Absolute Eosinophils Not Reportable Absolute Basophils Not Reportable Sodium Potassium Chloride Carbon Dioxide Anion Gap BUN Creatinine Est GFR ( Amer) Est GFR (Non-Af Amer) Glucose Calcium Phosphorus Magnesium Total Bilirubin AST ALT Alkaline Phosphatase Total Protein Albumin Blood Type O POSITIVE Antibody Screen NEGATIVE 02/03/19 03:52 WBC RBC Hgb Hct MCV MCH MCHC RDW Plt Count Seg Neutrophils % Lymphocytes % Monocytes % Eosinophils % Basophils % Absolute Neutrophils Absolute Lymphocytes Absolute Monocytes Absolute Eosinophils Absolute Basophils Sodium 133.9 L Potassium 3.6 Chloride 102 Carbon Dioxide 23 Anion Gap 9 BUN 50 H Creatinine 1.87 H Est GFR ( Amer) 32 L Est GFR (Non-Af Amer) 26 L Glucose 226 H Calcium 8.1 L Phosphorus 4.7 H Magnesium 1.9 Total Bilirubin 0.6 AST 13 L ALT 33 Alkaline Phosphatase 43 Total Protein 4.3 L Albumin 2.4 L Blood Type Antibody Screen 02/01/19 09:05 Clean Catch Midstream Urine Culture - Final Mixed Urogenital Uday 02/01/19 02/01/19 08:10 12:13 Troponin I 0.051 0.047 Impressions: Chest X-Ray 02/02/19 00:00 IMPRESSION: WORSENING BILATERAL INFILTRATES. POSSIBLE LEFT PLEURAL EFFUSION. Plan Discharge Plan: Patient is going to [facility] today. Time Spent: Greater than 30 Minutes
[2019-02-03] MEDS ORDERED: NYSTATIN 500000 UNIT/5 ML UDCUP PO SCH (14:00)
[2019-02-03] MEDS ORDERED: CLINDAMYCIN 600 MG/D5W RTU 600 MG/50 ML RTUPB IV SCH (14:00)
[2019-02-03] MEDS ORDERED: (PENDING PHARMACY ID) (Nystatin 5 ML) PO SCH (14:00)
--- NOTE | 2019-02-03 14:00 | Progress Note ---
Provider Note Provider Note: ID Telephone Consultation Note Brief Note. Pt has been noted to have increasing hypoxia, dry crackles. In combination with the interstitial infiltrates and lack of PJP prophylaxis, background of high dose steroids and prior Cytoxan - agree, PJP certainly is a strong consideration. With sulfa allergy, agree with IV clindamycin IV 900 q8h plus primaquine 30 mg PO and increasing steroids if not already done. It is generally prudent to check G6PD in patients who are going to be on primaquine, but I would start primaquine along with the clindamycin. Establishing the diagnosis - can try checking LDH although nonspecific, [id number] also suggestive if elevated, definitive diagnosis would likely involve BAL. Tk Belle MD [facility] pager [phone]
[2019-02-03 19:19] VITALS: BP 149/120
[2019-02-03] MEDS ORDERED: (PENDING PHARMACY ID) (Ubidecarenone/Vit E Acet [Co Q-10 100 Mg Softgel] 1 CAP) PO SCH (22:00)
[2019-02-04] MEDS ORDERED: B LONGUM PO SCH (10:00)
[2019-02-04] MEDS ORDERED: BUSPIRONE HCL 10 MG TABLET PO SCH (10:00)
[2019-02-04] MEDS ORDERED: GASSERI PO SCH (10:00)
[2019-02-04] MEDS ORDERED: ASCORBIC ACID 500 MG TABLET PO SCH (10:00)
[2019-02-04] MEDS ORDERED: [UNRECOGNIZED DRUG - OTHER] PO SCH (10:00)
[2019-02-04] MEDS ORDERED: B BIFIDUM PO SCH (10:00)
== END 2019-02-03 19:33 | disposition short-term general hospital (02) | DRG 194 ==
LOC: ER 07:38 → EH 11:49 → 4S 13:37 → 3S 16:57 → ICU 02-02 14:47
PROVIDERS: ADMIT Internal Medicine; ATTEND Internal Medicine
PROC: 30233N1 Transfusion of Nonautologous Red Blood Cells into Peripheral Vein, Percutaneous Approach (ICD-10-PCS; principal; 2019-02-02)
DX: J18.1 Lobar pneumonia, unspecified organism (principal); M31.7 Microscopic polyangiitis; N18.4 Chronic kidney disease, stage 4 (severe); E87.1 Hypo-osmolality and hyponatremia; I48.91 Unspecified atrial fibrillation; N08 Glomerular disorders in diseases classified elsewhere; E66.9 Obesity, unspecified; E78.5 Hyperlipidemia, unspecified; I12.9 Hypertensive chronic kidney disease with stage 1 through stage 4 chronic kidney disease, or unspecified chronic kidney disease; K21.9 Gastro-esophageal reflux disease without esophagitis; F41.1 Generalized anxiety disorder; D63.1 Anemia in chronic kidney disease; Z60.2 Problems related to living alone; Z66 Do not resuscitate; R29.6 Repeated falls; B37.9 Candidiasis, unspecified; D69.2 Other nonthrombocytopenic purpura; N89.8 Other specified noninflammatory disorders of vagina; Z99.81 Dependence on supplemental oxygen; Z79.52 Long term (current) use of systemic steroids; Z79.899 Other long term (current) drug therapy; Z88.6 Allergy status to analgesic agent; Z88.2 Allergy status to sulfonamides
CPT/HCPCS: 36415; 36430; 71045; 80048; 80053; 81001; 82533; 82803; 83605; 83690; 83735; 84100; 84484; 85025; 85384; 85610; 85730; 86592; 86701; 86850; 86900; 86901; 86920; 87040; 87086; 87252; 87496; 93005; 93010; 96365; 96375; 99285; J0456; J0692; J0696; J1940; J3370; J3490; J7030; J7060; J7512; J7620; P9016

== ENCOUNTER → 2019-04-02 | Outpatient (CLI) | payer MEDICARE ==
[2019-04-02 11:26] LABS: HEMATOCRIT 24.5 % (36.0-47.0); HEMOGLOBIN 8.6 g/dL (12.0-15.5); MEAN CORPUSCULAR HEMOGLOBIN 33.6 pg (27.0-33.4); MEAN CORPUSCULAR HGB CONC 35.2 g/dL (32.0-36.0); MEAN CORPUSCULAR VOLUME 95 fl (80-97); PLATELET COUNT 192 10^3/uL (150-450); RED BLOOD COUNT 2.57 10^6/uL (3.72-5.28); RED CELL DISTRIBUTION WIDTH 16.1 % (11.5-14.0); WHITE BLOOD COUNT 5.4 10^3/uL (4.0-10.5)
[2019-04-02 11:46] LABS: ALKALINE PHOSPHATASE 42 U/L (38-126); ANION GAP 10 (5-19); ASPARTATE AMINO TRANSFERASE 17 U/L (14-36); BILIRUBIN,DIRECT 0.2 mg/dL (0.0-0.4); BILIRUBIN,TOTAL 0.5 mg/dL (0.2-1.3); BLOOD UREA NITROGEN 37 mg/dL (7-20); CALCIUM 9.1 mg/dL (8.4-10.2); CARBON DIOXIDE 27 mmol/L (22-30); CHLORIDE 99 mmol/L (98-107); GLUCOSE 112 mg/dL (75-110); PHOSPHORUS 4.4 mg/dL (2.5-4.5)
[2019-04-02 11:47] LABS: IRON(TIBC) 89.1 ug/dL (37-170)
[2019-04-02 11:53] LABS: ABSOLUTE LYMPHOCYTES# (MANUAL) 0.6 10^3/uL (0.5-4.7); ABSOLUTE MONOCYTES # (MANUAL) 0.2 10^3/uL (0.1-1.4); BAND NEUTROPHILS % (MANUAL) 2 % (3-5); BASOPHILS % (MANUAL) 0 % (0-2); EOSINOPHILS % (MANUAL) 0 % (0-6); LYMPHOCYTES % (MANUAL) 11 % (13-45); MONOCYTES % (MANUAL) 4 % (3-13); OVALOCYTES SLIGHT; POIKILOCYTOSIS SLIGHT; SEGMENTED NEUTROPHILS % (MAN) 83 % (42-78); TOTAL CELLS COUNTED 100
[2019-04-02 11:54] LABS: ANISOCYTOSIS 1+; PLATELET COMMENT ADEQUATE; TEAR DROP CELLS SLIGHT
[2019-04-03 10:42] LABS: APPEARANCE,URINE SLIGHTLY-CLOUDY; BILIRUBIN,URINE NEGATIVE (NEGATIVE); COLOR,URINE YELLOW; GLUCOSE, URINE NEGATIVE (NEGATIVE); KETONES,URINE NEGATIVE (NEGATIVE); LEUKOCYTE ESTERASE,URINE LARGE (NEGATIVE); NITRITE,URINE NEGATIVE (NEGATIVE); PROTEIN,URINE 100 mg/dL (NEGATIVE); URINE SPECIFIC GRAVITY 1.008; UROBILINOGEN,URINE NEGATIVE mg/dL (<2.0)
[2019-04-03 11:00] LABS: ADD MANUAL MICROSCOPIC YES; BACTERIA,URINE 4+ /HPF
[2019-04-03 11:51] LABS: URINE PROTEIN 70.7 mg/dL (<12)
[2019-04-03 12:13] LABS: UR PRO/CREAT RATIO RESULT 1.7 mg/mg (0.0-0.2)
== END ==
LOC: OD 10:16
PROVIDERS: ATTEND Internal Medicine Nephrology
DX: N17.9 Acute kidney failure, unspecified (principal); N18.4 Chronic kidney disease, stage 4 (severe); D63.1 Anemia in chronic kidney disease; N25.0 Renal osteodystrophy
CPT/HCPCS: 36415; 80053; 81001; 82570; 82728; 83540; 83550; 83735; 83970; 84100; 84156; 85025

== ENCOUNTER → 2019-05-07 | Outpatient (CLI) | payer MEDICARE ==
[2019-05-07 10:28] LABS: HEMATOCRIT 25.9 % (36.0-47.0); HEMOGLOBIN 9.2 g/dL (12.0-15.5); MEAN CORPUSCULAR HEMOGLOBIN 33.8 pg (27.0-33.4); MEAN CORPUSCULAR HGB CONC 35.5 g/dL (32.0-36.0); MEAN CORPUSCULAR VOLUME 95 fl (80-97); PLATELET COUNT 158 10^3/uL (150-450); RED BLOOD COUNT 2.72 10^6/uL (3.72-5.28); RED CELL DISTRIBUTION WIDTH 14.6 % (11.5-14.0); WHITE BLOOD COUNT 7.2 10^3/uL (4.0-10.5)
[2019-05-07 10:48] LABS: ALBUMIN 3.8 g/dL (3.5-5.0); ALKALINE PHOSPHATASE 53 U/L (38-126); ANION GAP 12 (5-19); ASPARTATE AMINO TRANSFERASE 18 U/L (14-36); BILIRUBIN,TOTAL 0.4 mg/dL (0.2-1.3); BLOOD UREA NITROGEN 65 mg/dL (7-20); CARBON DIOXIDE 28 mmol/L (22-30); CHLORIDE 96 mmol/L (98-107); GLUCOSE 179 mg/dL (75-110); IRON(TIBC) 102.6 ug/dL (37-170); PHOSPHORUS 3.9 mg/dL (2.5-4.5); POTASSIUM 3.3 mmol/L (3.6-5.0); TOTAL PROTEIN 5.9 g/dL (6.3-8.2)
[2019-05-07 10:55] LABS: ABSOLUTE LYMPHOCYTES# (MANUAL) 0.6 10^3/uL (0.5-4.7); ABSOLUTE MONOCYTES # (MANUAL) 0.5 10^3/uL (0.1-1.4); BAND NEUTROPHILS % (MANUAL) 3 % (3-5); BASOPHILS % (MANUAL) 0 % (0-2); EOSINOPHILS % (MANUAL) 0 % (0-6); LYMPHOCYTES % (MANUAL) 8 % (13-45); MONOCYTES % (MANUAL) 7 % (3-13); NUCLEATED RED BLOOD CELLS 1 /100 WBC (0); SEGMENTED NEUTROPHILS % (MAN) 82 % (42-78); TOTAL CELLS COUNTED 100
[2019-05-07 10:57] LABS: ANISOCYTOSIS SLIGHT; PLATELET COMMENT ADEQUATE; POIKILOCYTOSIS SLIGHT; POLYCHROMASIA 1+; TEAR DROP CELLS SLIGHT
[2019-05-07 11:16] LABS: UR PRO/CREAT RATIO RESULT 2.8 mg/mg (0.0-0.2); URINE CREATININE 47.5 mg/dL (15-278); URINE PROTEIN 134.7 mg/dL (<12)
[2019-05-07 11:41] LABS: APPEARANCE,URINE SLIGHTLY-CLOUDY; BILIRUBIN,URINE NEGATIVE (NEGATIVE); COLOR,URINE YELLOW; GLUCOSE, URINE NEGATIVE (NEGATIVE); KETONES,URINE NEGATIVE (NEGATIVE); LEUKOCYTE ESTERASE,URINE MODERATE (NEGATIVE); NITRITE,URINE NEGATIVE (NEGATIVE); PROTEIN,URINE 100 mg/dL (NEGATIVE); URINE SPECIFIC GRAVITY 1.011; UROBILINOGEN,URINE NEGATIVE mg/dL (<2.0)
[2019-05-07 11:43] LABS: ADD MANUAL MICROSCOPIC YES
[2019-05-07 11:52] LABS: BACTERIA,URINE 4+ /HPF; RBC,URINE 0-1 /HPF
== END ==
LOC: OD 09:49
PROVIDERS: ATTEND Internal Medicine Nephrology
DX: I13.0 Hypertensive heart and chronic kidney disease with heart failure and stage 1 through stage 4 chronic kidney disease, or unspecified chronic kidney disease (principal); I50.9 Heart failure, unspecified; N18.4 Chronic kidney disease, stage 4 (severe); D63.1 Anemia in chronic kidney disease
CPT/HCPCS: 36415; 80053; 81001; 82570; 82728; 83540; 83550; 83735; 83970; 84100; 84156; 85025

== ENCOUNTER → 2019-05-11 | Outpatient (CLI) | payer MEDICARE | LOC: OD 08:59 | PROVIDERS: ATTEND Physician Assistant Medical | DX: E87.6 Hypokalemia (principal) | CPT/HCPCS: 36415; 84132 ==

== ENCOUNTER 2019-06-22 06:48 | Emergency (ER) | payer MEDICARE ==
[2019-06-22 07:39] LABS: HEMATOCRIT 26.4 % (36.0-47.0); MEAN CORPUSCULAR HEMOGLOBIN 33.3 pg (27.0-33.4); MEAN CORPUSCULAR HGB CONC 34.2 g/dL (32.0-36.0); MEAN CORPUSCULAR VOLUME 97 fl (80-97); PLATELET COUNT 200 10^3/uL (150-450); RED BLOOD COUNT 2.72 10^6/uL (3.72-5.28); RED CELL DISTRIBUTION WIDTH 15.9 % (11.5-14.0)
--- NOTE | 2019-06-22 07:51 | EKG REPORT ---
SEVERITY:- OTHERWISE NORMAL ECG - SINUS RHYTHM VENTRICULAR PREMATURE COMPLEX : Confirmed by: Kael Garcia MD 22-Jun-2019 07:50:36
[2019-06-22 08:00] LABS: ALBUMIN 3.7 g/dL (3.5-5.0); ALKALINE PHOSPHATASE 51 U/L (38-126); ANION GAP 8 (5-19); ASPARTATE AMINO TRANSFERASE 17 U/L (14-36); BILIRUBIN,DIRECT 0.1 mg/dL (0.0-0.4); BILIRUBIN,TOTAL 0.4 mg/dL (0.2-1.3); BLOOD UREA NITROGEN 55 mg/dL (7-20); CALCIUM 8.9 mg/dL (8.4-10.2); CARBON DIOXIDE 26 mmol/L (22-30); CHLORIDE 104 mmol/L (98-107); GLUCOSE 110 mg/dL (75-110); POTASSIUM 4.2 mmol/L (3.6-5.0); TOTAL PROTEIN 6.3 g/dL (6.3-8.2)
[2019-06-22 08:04] LABS: ABSOLUTE LYMPHOCYTES# (MANUAL) 0.8 10^3/uL (0.5-4.7); ABSOLUTE MONOCYTES # (MANUAL) 0.7 10^3/uL (0.1-1.4); BASOPHILS % (MANUAL) 1 % (0-2); EOSINOPHILS % (MANUAL) 1 % (0-6); LYMPHOCYTES % (MANUAL) 11 % (13-45); MONOCYTES % (MANUAL) 10 % (3-13); SEGMENTED NEUTROPHILS % (MAN) 77 % (42-78); TOTAL CELLS COUNTED 100
[2019-06-22 08:06] LABS: ANISOCYTOSIS 1+; PLATELET COMMENT ADEQUATE
--- NOTE | 2019-06-22 08:40 | ER Document Report ---
ED General - General Chief Complaint: Blood Pressure Problem Stated Complaint: BLOOD PRESSURE ISSUES Time Seen by Provider: 06/22/19 08:14 Primary Care Provider: DULCE LOPEZ MD [Primary Care Provider] - Follow up in 3-5 days (If symptoms are not improving. Please take meclizine as directed. Please start using your Flonase you have at your home forsinus congestion as this may help with your symptoms.) TRAVEL OUTSIDE OF THE [place] IN LAST 30 DAYS: No - HPI Context: Patient presents with concern of sensation of room spinning when turning her head upon waking up roughly 5 AM. She has been having sinus congestion but no recent fevers or illnesses. Denies any chest pain or shortness of breath. Patient does have a history of chronic kidney disease. She also has a history of vertigo. Her symptoms were worse than her normal vertigo so she came to the emergency department. There is also concern about her blood pressure reading in the 190s but she had not taken her blood pressure medication prior to coming to the emergency department - Related Data Allergies/Adverse Reactions: codeine Allergy (Unknown, Verified 02/01/19 07:51) Sulfa (Sulfonamide Antibiotics) Allergy (Unknown, Verified 02/01/19 07:51) Home Medications: meclizine, lasix, pt does have the bottles Past Medical History - Social History Smoking Status: Never Smoker Family History: Reviewed & Not Pertinent, CVA, DM, Malignancy Patient has suicidal ideation: No Patient has homicidal ideation: No - Past Medical History Cardiac Medical History: Reports: Hx Atrial Fibrillation, Hx Congestive Heart Failure, Hx Hypercholesterolemia, Hx Hypertension Denies: Hx Coronary Artery Disease Renal/ Medical History: Denies: Hx Peritoneal Dialysis GI Medical History: Reports: Hx Gastroesophageal Reflux Disease Musculoskeletal Medical History: Reports Hx Arthritis Past Surgical History: Reports: Hx Cholecystectomy, Hx Hysterectomy, Hx Orthopedic Surgery - Carpal Tunnel Review of Systems - Review of Systems Constitutional: No symptoms reported EENT: No symptoms reported Cardiovascular: No symptoms reported Respiratory: No symptoms reported Gastrointestinal: No symptoms reported Genitourinary: No symptoms reported Female Genitourinary: No symptoms reported Musculoskeletal: No symptoms reported Skin: No symptoms reported Hematologic/Lymphatic: No symptoms reported Neurological/Psychological: See HPI Physical Exam - Vital signs Vitals: Temp Pulse Resp BP Pulse Ox 97.5 F 74 16 182/84 H 97 06/22/19 07:11 06/22/19 07:11 06/22/19 07:11 06/22/19 07:11 06/22/19 07:11 - General General appearance: Appears well, Alert, Other - Very pleasant - HEENT Head: Normocephalic, Atraumatic Eyes: Normal Conjunctiva: Normal Extraocular movements intact: Yes Pupils: PERRL - No nystagmus Tympanic membrane: Normal Sinus: Normal - Respiratory Respiratory status: No respiratory distress Chest status: Nontender Breath sounds: Normal Chest palpation: Normal - Cardiovascular Rhythm: Regular Heart sounds: Normal auscultation Murmur: No - Neurological Neuro grossly intact: Yes Cognition: Normal Orientation: AAOx4 Cranial nerves: Normal Cerebellar coordination: Normal Motor strength normal: LUE, RUE, LLE, RLE 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 Course - Re-evaluation Re-evalutation: 06/22/19 08:37 All labs within normal limits are trending within patient's baseline. She is found to have beating nystagmus horizontally performing [employer] [place] on the right. She does not have any vertiginous symptoms when sitting completely still . Her blood pressure is approximately 185/85 in the emergency department during exam. She has not taken her blood pressure medication this morning. I advised her to take her blood pressure medication and we will also provide her meclizine for her vertigo. Her symptoms are consistent with BPPV and not central vertigo. She also has Flonase that also I recommended that she start taking this twice a day to help with her sinus congestion. She is to seek medical reevaluation next to 3 days of her symptoms are not improving. - Vital Signs Vital signs: Temp Pulse Resp BP Pulse Ox 97.5 F 74 17 174/75 H 97 06/22/19 07:11 06/22/19 07:11 06/22/19 08:01 06/22/19 08:01 06/22/19 08:01 - Laboratory Result Diagrams: 06/22/19 07:30 06/22/19 07:30 Laboratory results interpreted by me: 06/22/19 06/22/19 07:30 07:30 RBC 2.72 L Hgb 9.0 L Hct 26.4 L RDW 15.9 H Lymphocytes % (Manual) 11 L BUN 55 H Creatinine 2.32 H Est GFR ( Amer) 25 L Est GFR (MDRD) Non-Af 20 L - EKG Interpretation by Me EKG shows normal: Sinus rhythm Rate: Normal Rhythm: NSR - No significant change from 02/01/2019 Discharge - Discharge Clinical Impression: BPPV (benign paroxysmal positional vertigo) Qualifiers: Laterality: right Qualified Code(s): H81.11 - Benign paroxysmal vertigo, right ear Condition: Good Disposition: HOME, SELF-CARE Prescriptions: Meclizine HCl [Antivert 25 mg Tablet] 25 mg PO ASDIR PRN #15 tablet PRN Reason: Referrals: DULCE LOPEZ MD [Primary Care Provider] - Follow up in 3-5 days (If symptoms are not improving. Please take meclizine as directed. Please start using your Flonase you have at your home forsinus congestion as this may help with your symptoms.)
[2019-06-22 09:16] VITALS: BP 160/65
== END 2019-06-22 09:17 | disposition home or self-care (01) ==
LOC: ER 06:48
DX: H81.11 Benign paroxysmal vertigo, right ear (principal); H55.00 Unspecified nystagmus; R09.81 Nasal congestion; I10 Essential (primary) hypertension; Z79.899 Other long term (current) drug therapy; Z88.5 Allergy status to narcotic agent; Z88.2 Allergy status to sulfonamides
CPT/HCPCS: 36415; 80053; 85025; 93005; 93010; 99283

== ENCOUNTER → 2019-07-08 | Outpatient (CLI) | payer MEDICARE ==
[2019-07-08 11:12] LABS: APPEARANCE,URINE CLEAR; BILIRUBIN,URINE NEGATIVE (NEGATIVE); COLOR,URINE YELLOW; GLUCOSE, URINE NEGATIVE (NEGATIVE); KETONES,URINE NEGATIVE (NEGATIVE); LEUKOCYTE ESTERASE,URINE TRACE (NEGATIVE); NITRITE,URINE NEGATIVE (NEGATIVE); PROTEIN,URINE 100 mg/dL (NEGATIVE); URINE SPECIFIC GRAVITY 1.009; UROBILINOGEN,URINE NEGATIVE mg/dL (<2.0)
[2019-07-08 11:13] LABS: ABSOLUTE EOSINOPHILS # (AUTO) 0.1 10^3/uL (0.0-0.6); ABSOLUTE LYMPHOCYTES (AUTO) 0.8 10^3/uL (0.5-4.7); ABSOLUTE MONOCYTES (AUTO) 0.4 10^3/uL (0.1-1.4); ABSOLUTE NEUT (AUTO) 4.5 10^3/uL (1.7-8.2); BASOPHILS % (AUTO) 0.6 % (0-2); EOSINOPHILS % (AUTO) 1.5 % (0-6); HEMATOCRIT 29.4 % (36.0-47.0); HEMOGLOBIN 10.1 g/dL (12.0-15.5); LYMPHOCYTES % (AUTO) 14.3 % (13-45); MEAN CORPUSCULAR HEMOGLOBIN 33.2 pg (27.0-33.4); MEAN CORPUSCULAR HGB CONC 34.5 g/dL (32.0-36.0); MEAN CORPUSCULAR VOLUME 96 fl (80-97); MONOCYTES % (AUTO) 7.4 % (3-13); PLATELET COUNT 187 10^3/uL (150-450); RED BLOOD COUNT 3.05 10^6/uL (3.72-5.28); RED CELL DISTRIBUTION WIDTH 15.6 % (11.5-14.0); SEGMENTED NEUTROPHILS % (AUTO) 76.2 % (42-78); TOTAL CELLS COUNTED % (AUTO) 100 %; WHITE BLOOD COUNT 5.9 10^3/uL (4.0-10.5)
[2019-07-08 11:43] LABS: ANION GAP 11 (5-19); BLOOD UREA NITROGEN 47 mg/dL (7-20); CALCIUM 9.1 mg/dL (8.4-10.2); CARBON DIOXIDE 25 mmol/L (22-30); CHLORIDE 104 mmol/L (98-107); GLUCOSE 94 mg/dL (75-110); PHOSPHORUS 5.8 mg/dL (2.5-4.5); POTASSIUM 4.7 mmol/L (3.6-5.0)
[2019-07-08 11:46] LABS: URINE CREATININE 43.5 mg/dL (15-278); URINE PROTEIN 86.7 mg/dL (<12)
== END ==
LOC: OD 10:20
PROVIDERS: ATTEND Internal Medicine Nephrology
DX: N17.9 Acute kidney failure, unspecified (principal); I13.0 Hypertensive heart and chronic kidney disease with heart failure and stage 1 through stage 4 chronic kidney disease, or unspecified chronic kidney disease; I50.9 Heart failure, unspecified; N18.4 Chronic kidney disease, stage 4 (severe); N25.0 Renal osteodystrophy; D64.9 Anemia, unspecified
CPT/HCPCS: 36415; 80048; 81001; 82570; 83735; 83970; 84100; 84156; 85025

== ENCOUNTER → 2019-10-02 | Outpatient (CLI) | payer MEDICARE ==
[2019-10-02 13:12] LABS: HEMATOCRIT 31.4 % (36.0-47.0); HEMOGLOBIN 10.7 g/dL (12.0-15.5); MEAN CORPUSCULAR HEMOGLOBIN 32.2 pg (27.0-33.4); MEAN CORPUSCULAR HGB CONC 33.9 g/dL (32.0-36.0); MEAN CORPUSCULAR VOLUME 95 fl (80-97); PLATELET COUNT 203 10^3/uL (150-450); RED BLOOD COUNT 3.31 10^6/uL (3.72-5.28); WHITE BLOOD COUNT 8.2 10^3/uL (4.0-10.5)
== END ==
LOC: OD 11:23
PROVIDERS: ATTEND Internal Medicine Nephrology
DX: N18.4 Chronic kidney disease, stage 4 (severe) (principal); D63.1 Anemia in chronic kidney disease
CPT/HCPCS: 36415; 85027